=== PATIENT | female | born 1950 | race Caucasian/White ===

== ENCOUNTER 2016-07-16 18:32 | Inpatient (IN) | payer MEDICARE, OTHER ==
[~2016-07-16] VITALS: Ht 165.1 cm; Wt 63.6 kg
[2016-07-16 18:40] VITALS: Ht 165.1 cm; Wt 63.6 kg
[2016-07-16 19:19] LABS: ADD SCAN DIFF NO
[2016-07-16 19:24] LABS: BASOPHILS % 0.3 % (0.0-2.0); EOSINOPHILS # 0.1 10^3/ul (0.0-0.5); EOSINOPHILS % 1.8 % (0.0-7.0); HEMOGLOBIN 10.4 g/dl (12.0-16.0); LYMPHOCYTES # 1.9 10^3/ul (0.8-2.9); LYMPHOCYTES % 26.3 % (15.0-51.0); MEAN CORPUSCULAR HEMOGLOBIN 25.4 pg (29.0-33.0); MEAN CORPUSCULAR HGB CONC 31.5 g/dl (32.0-37.0); MEAN CORPUSCULAR VOLUME 80.5 fl (82.0-101.0); MEAN PLATELET VOLUME 9.6 fl (7.4-10.4); MONOCYTE # 0.7 10^3/ul (0.3-0.9); MONOCYTES % 9.2 % (0.0-11.0); NEUTROPHIL # 4.2 10^3/ul (1.6-7.5); NEUTROPHILS % 60.1 % (39.0-77.0); PLATELET COUNT 259 10^3/UL (140-415); RED CELL DISTRIBUTION WIDTH 16.3 % (11.5-14.5)
[2016-07-16] MEDS: NALOXONE (0.4 MG/ML) INJ IV PRN ×2 (19:27→21:44)
[2016-07-16 19:31] LABS: URINE BILIRUBIN (Dip) NEGATIVE (NEGATIVE); URINE BLOOD (Dip) NEGATIVE (NEGATIVE); URINE COLOR LT. YELLOW (YELLOW); URINE GLUCOSE (Dip) NEGATIVE (NEGATIVE); URINE KETONES (Dip) NEGATIVE (NEGATIVE); URINE LEUKOCYTE ESTERASE (Dip) NEGATIVE (NEGATIVE); URINE NITRITE (Dip) NEGATIVE (NEGATIVE); URINE UROBILINOGEN (Dip) 0.2 E.U./dL (0.1-1.0)
[2016-07-16 19:34] LABS: ALBUMIN 3.6 g/dl (3.3-4.9); CHLORIDE 105 mmol/L (97-110)
[2016-07-16 19:35] LABS: POTASSIUM 3.3 mmol/L (3.5-5.1); SODIUM 143 mmol/L (135-144)
[2016-07-16 19:37] LABS: ALKALINE PHOSPHATASE 75 IU/L (42-121); ANION GAP 15 (8-16); ASPARTATE AMINO TRANSFERASE 27 IU/L (15-46); BILIRUBIN,INDIRECT 0.3 mg/dl (0-1.1); BILIRUBIN,TOTAL 0.3 mg/dl (0.2-1.3); BLOOD UREA NITROGEN 11 mg/dl (7-20); CARBON DIOXIDE 26 mmol/L (21-31); CREATININE 1.03 mg/dl (0.44-1.00); TOTAL PROTEIN 6.6 g/dl (6.1-8.1)
[2016-07-16 19:38] LABS: ALANINE AMINOTRANSFERASE 27 IU/L (13-69); GLUCOSE 121 mg/dl (70-220)
[2016-07-16 19:44] LABS: ETHANOL < 10.0 mg/dl
[2016-07-16 19:52] LABS: BARBITURATES Negative (NEGATIVE)
[2016-07-16 19:57] LABS: CANNABINOIDS Negative (NEGATIVE)
[2016-07-16 19:59] LABS: BENZODIAZEPINES Positive (NEGATIVE); URINE RBCS 0-2 /HPF (0); URINE TOTAL PROTEIN (Dip) NEGATIVE (NEGATIVE)
[2016-07-16 20:00] LABS: COCAINE Positive (NEGATIVE); OPIATES Positive (NEGATIVE)
--- NOTE | 2016-07-16 20:07 | RADRPT ---
PROCEDURE: XR Chest. CLINICAL INDICATION: Chest pain, altered mental status TECHNIQUE: AP view of the chest was performed. COMPARISON: None FINDINGS: Mild cardiomegaly, remote CABG changes, and a left subclavian dual-chamber pacemaker are present. M ild vascular congestion is noted. No signs of pleural fluid or pneumothorax are seen. The osseous st ructures and soft tissues are unremarkable. IMPRESSION: Mild cardiomegaly, vascular congestion, remote CABG changes, and cardiac pacer. RPTAT: QQ .Heike Sotelo MD, MD Date Time Electronically viewed and signed by .Heike Sotelo MD, MD on 07/16/2016 20:07 .F/
[2016-07-16 20:58] LABS: ADD UMIC YES
[2016-07-16] MEDS ORDERED: SOD CHLORIDE 0.9% 1,000 ML IV SCH (23:07)
[2016-07-16] MEDS: SOD CHLORIDE 0.9% 1,000 ML IV SCH (23:07)
--- NOTE | 2016-07-16 23:09 | RADRPT ---
PROCEDURE: CT brain without contrast CLINICAL INDICATION: Altered level of consciousness TECHNIQUE: A CT of the brain was performed on a GE [address] scanner utilizing axial sections fr om the skull base through the vertex without contrast. The exam CDTIvol = 43.86 mGy and DLP = 720. 23 mGy-cm. COMPARISON: None available FINDINGS: No attenuation involving the inferior right frontal lobe white matter is most likely the sequela of prior traumatic contusion and associated encephalomalacia No acute intracranial hemorrhage is identi fied. There is no mass effect or midline shift. No extra-axial fluid collection is seen. The ventr icles and sulci are mildly enlarged, compatible with generalized volume loss. There are mild areas of decreased attenuation in the periventricular and deep white matter, suggestive of chronic small v essel ischemic changes. Breen-white differentiation is preserved. Atherosclerotic calcifications of the proximal intracranial arteries are noted. The osseous structures are unremarkable. The mastoid air cells and visualized paranasal sinuses are clear. RPTAT:HJJR IMPRESSION: 1. No evidence for acute intracranial abnormality. 2. Encephalomalacia in the inferior frontal lobe likely the sequela of prior post traumatic contusi on superimposed upon mild generalized volume loss with mild chronic small vessel ischemic changes. Physician Celeste Date Time Electronically viewed and signed by Physician Celeste on 07/16/2016 23:08 JR/
--- NOTE | 2016-07-16 23:10 | ERA ---
ER Documentation Chief Complaint Date/Time DATE: 07/16/16 TIME: 23:00 Chief Complaint BIBA RA 81, ALOC,woke up after one dose of Narcan per EMS report HPI 65-year-old female with a history of hypertension and diabetes brought in by ambulance for altered mental status [facility]. The patient was reportedly obtunded with agonal respirations. Narcan was given for pinpoint pupils and her mental status and respirations improved. Patient states she feels well and denies taking any drugs today. She denies any chest pain, shortness of breath, headache, focal weakness or numbness, recent fevers or chills ROS Review of systems limited secondary to altered mental status Allergies Allergies: Coded Allergies: No Known Allergy (Unverified , 07/16/16) PMhx/Soc History of Surgery: Yes Hx Cardiac Disorders: Yes (Hypertension, CAD) Hx Miscellaneous Medical Probl: Yes (Diabetes) Hx Alcohol Use: No Hx Substance Use: Yes Hx Tobacco Use: Yes Smoking Status: Unknown if ever smoked FmHx Family History: No diabetes Physical Exam Vitals Vital Signs Date Time Temp Pulse Resp B/P Pulse Ox O2 Delivery O2 Flow Rate FiO2 07/16/16 21:08 99.1 76 22 167/83 95 Room Air 07/16/16 19:50 Nasal Cannula 2 07/16/16 18:43 99.6 86 24 154/79 94 Room Air 07/16/16 18:40 98.5 90 18 135/68 87 Physical Exam Const: Somnolent but arousable, no apparent distress Head: Atraumatic Eyes: Normal Conjunctiva, PERRLA, EOMI ENT: Dry oral mucosa. Neck: Full range of motion. No meningismus. Resp: Clear to auscultation bilaterally Cardio: Regular rate and rhythm, no murmurs Abd: Soft, non tender, non distended. Normal bowel sounds Skin: No petechiae or rashes Back: No midline or flank tenderness Ext: No cyanosis, or edema Neur: Somnolent but arousable, oriented 3, moving all extremities, strength and sensations intact, no facial asymmetry Psych: Denies suicidal or homicidal ideations Result Diagram: 07/16/16191307/16/161913 Results 24 hrs Laboratory Tests Test 07/16/16 19:14 4/9/17 19:15 07/16/16 19:25 White Blood Count 7.010^3/ul Red Blood Count 4.1010^6/ul Hemoglobin 10.4g/dl Hematocrit 33.0% Mean Corpuscular Volume 80.5fl Mean Corpuscular Hemoglobin 25.4pg Mean Corpuscular Hemoglobin Concent 31.5g/dl Red Cell Distribution Width 16.3% Platelet Count 10753^3/UL Mean Platelet Volume 9.6fl Neutrophils % 60.1% Lymphocytes % 26.3% Monocytes % 9.2% Eosinophils % 1.8% Basophils % 0.3% Nucleated Red Blood Cells % 0.0/100WBC Neutrophils # 4.210^3/ul Lymphocytes # 1.910^3/ul Monocytes # 0.710^3/ul Eosinophils # 0.110^3/ul Basophils # 0.010^3/ul Nucleated Red Blood Cells # 0.010^3/ul Sodium Level 143mmol/L Potassium Level 3.3mmol/L Chloride Level 105mmol/L Carbon Dioxide Level 26mmol/L Anion Gap 15 Blood Urea Nitrogen 11mg/dl Creatinine 1.03mg/dl Glucose Level 121mg/dl Calcium Level 9.0mg/dl Total Bilirubin 0.3mg/dl Direct Bilirubin 0.00mg/dl Indirect Bilirubin 0.3mg/dl Aspartate Amino Transf (AST/SGOT) 27IU/L Alanine Aminotransferase (ALT/SGPT) 27IU/L Alkaline Phosphatase 75IU/L Total Protein 6.6g/dl Albumin 3.6g/dl Globulin 3.00g/dl Albumin/Globulin Ratio 1.20 Ethyl Alcohol Level < 10.0mg/dl Urine Color LT. YELLOW Urine Clarity CLEAR Urine pH 5.5 Urine Specific [place] 1.010 Urine Ketones NEGATIVE Urine Nitrite NEGATIVE Urine Bilirubin NEGATIVE Urine Urobilinogen 0.2 E.U./dL Urine Leukocyte Esterase NEGATIVE Urine Microscopic RBC 0-2/HPF Urine Microscopic WBC 0-2/HPF Urine Amorphous Urates MODERATE Urine Hemoglobin NEGATIVE Urine Glucose NEGATIVE% Urine Total Protein NEGATIVE Urine Opiates Screen Positive Urine Barbiturates Negative Urine Amphetamines Screen Negative Urine Benzodiazepines Screen Positive Urine Cocaine Screen Positive Urine Cannabinoids Negative Bedside Glucose 127mg/dL Current Medications Medications (Trade) Dose Ordered Sig/Gelacio Route PRN Reason Start Time Stop Time Status Last Admin Dose Admin Naloxone HCl (Narcan) 0.4 mg Q2M PRN IV LETHARGY 07/16/16 19:00 07/16/16 21:44 Procedures/MDM EMERGENT LABS AND DIAGNOSTIC STUDIES: Lab Results above were reviewed and interpreted by me. BMP showed mild hypokalemia slightly elevated creatinine UDS was positive for benzodiazepines, cocaine, and opiates 12-lead EKG was interpreted by Agus Whitney MD: Normal Sinus Rhythm with ventricular rate of 87 beats per minute Normal axis Normal intervals No acute ST or T wave changes suggestive of acute ischemia or STEMI. Radiology Results as interpreted by Radiology below were reviewed by Tamia Whitney MD: Chest x-ray: IMPRESSION: Mild cardiomegaly, vascular congestion, remote CABG changes, and cardiac pacer. .Heike Sotelo MD, MD Date Time Electronically viewed and signed by .Heike Sotelo MD, MD on 07/16/2016 20:07 Initial Nursing notes reviewed. Previous Medical Records requested via the Electronic Health Record. EMERGENCY DEPARTMENT COURSE / MEDICAL DECISION MAKING: Patient is presenting with altered mental status and somnolence likely secondary to drug overdose. Vitals were notable for some mild hypoxia which improved with stimulation. Urine drug screen showed evidence of polysubstance abuse. When I asked the patient about this, she finally admitted to using drugs for back pain. Patient required multiple doses of Narcan while in the ED for worsening mental status. Patient will be admitted to the ICU for close cardiopulmonary monitoring Critical Care Time: 40 minutes Treatments/Evaluations: Close monitoring and treatment of unstable vital signs, cardiorespiratory, and neurologic status, while maintaining tight balance of fluid, respiratory, and cardiac interventions. This time includes discussing the case with the patient and the patients family. This time does not include all procedures stated elsewhere in this record. This time also includes reviewing old records, labs and radiological studies. This time includes examining and re-examining the patient. Additionally, this time also includes arranging care with admitting and consulting physicians. Departure Diagnosis: Primary Impression: Altered level of consciousness Additional Impressions: Drug overdose Qualified Code: T50.901A - Drug overdose, accidental or unintentional, initial encounter Polysubstance abuse Condition: Critical FRANK WHITNEY MD Jul 16, 2016 23:10
[2016-07-16] MEDS ORDERED: NALOXONE (0.4 MG/ML) INJ IV PRN (23:30)
[2016-07-16] MEDS ORDERED: LORAZEPAM 2 MG INJ IV PRN (23:30)
[2016-07-16] MEDS: FAMOTIDINE 20 MG INJ IV SCH (23:30)
[2016-07-16] MEDS ORDERED: METOCLOPRAMIDE 10 MG INJ IV PRN (23:30)
[2016-07-16] MEDS ORDERED: NITROGLYCERIN (SL) 0.4 MG TAB SL PRN (23:30)
[2016-07-17] VITALS (37 sets, daily range): BP systolic 126–190; BP diastolic 65–96; PULSE 62–99; RESP 10–79; TEMP 97.6
[2016-07-17] MEDS: SOD CHLORIDE 0.9% 1,000 ML IV SCH (00:07)
--- NOTE | 2016-07-17 02:49 | HP ---
Date/Time of Note Date/Time of Note DATE: 07/17/16 TIME: 02:48 Assessment/Plan Assessment/Plan Assessment/Plan Altered level of consciousness Additional Impressions: Drug overdose Qualified Code: T50.901A - Drug overdose, accidental or unintentional, initial encounter Polysubstance abuse HPI/ROS Admit Date/Time Admit Date/Time Hx of Present Illness BIBA RA 81, ALOC,woke up after one dose of Narcan per EMS report HPI 65-year-old female with a history of hypertension and diabetes brought in by ambulance for altered mental status at her [facility]. The patient was reportedly obtunded with agonal respirations. Narcan was given for pinpoint pupils and her mental status and respirations improved. Patient states she feels well and denies taking any drugs today. She denies any chest pain, shortness of breath, headache, focal weakness or numbness, recent fevers or chills ROS Review of systems limited secondary to altered mental status Allergies Allergies: Coded Allergies: No Known Allergy (Unverified , 07/16/16) PMhx/Soc History of Surgery: Yes Hx Cardiac Disorders: Yes (Hypertension, CAD) Hx Miscellaneous Medical Probl: Yes (Diabetes) Hx Alcohol Use: No Hx Substance Use: Yes Hx Tobacco Use: Yes Smoking Status: Unknown if ever smoked FmHx Family History: No diabetes Physical Exam Vitals Vital Signs Date Time Temp Pulse Resp B/P Pulse Ox O2 Delivery O2 Flow Rate FiO2 07/16/16 21:08 99.1 76 22 167/83 95 Room Air 07/16/16 19:50 Nasal Cannula 2 07/16/16 18:43 99.6 86 24 154/79 94 Room Air 07/16/16 18:40 98.5 90 18 135/68 87 Physical Exam Const: Somnolent but arousable, no apparent distress Head: Atraumatic Eyes: Normal Conjunctiva, PERRLA, EOMI ENT: Dry oral mucosa. Neck: Full range of motion. No meningismus. Resp: Clear to auscultation bilaterally Cardio: Regular rate and rhythm, no murmurs Abd: Soft, non tender, non distended. Normal bowel sounds Skin: No petechiae or rashes Back: No midline or flank tenderness Ext: No cyanosis, or edema Neur: Somnolent but arousable, oriented 3, moving all extremities, strength and sensations intact, no facial asymmetry Psych: Denies suicidal or homicidal ideations Result Diagram: 07/16/16191307/16/161913 Results 24 hrs Laboratory Tests Test 07/16/16 19:14 07/16/16 19:15 07/16/16 19:25 White Blood Count 7.010^3/ul Red Blood Count 4.1010^6/ul Hemoglobin 10.4g/dl Hematocrit 33.0% Mean Corpuscular Volume 80.5fl Mean Corpuscular Hemoglobin 25.4pg Mean Corpuscular Hemoglobin Concent 31.5g/dl Red Cell Distribution Width 16.3% Platelet Count 07681^3/UL Mean Platelet Volume 9.6fl Neutrophils % 60.1% Lymphocytes % 26.3% Monocytes % 9.2% Eosinophils % 1.8% Basophils % 0.3% Nucleated Red Blood Cells % 0.0/100WBC Neutrophils # 4.210^3/ul Lymphocytes # 1.910^3/ul Monocytes # 0.710^3/ul Eosinophils # 0.110^3/ul Basophils # 0.010^3/ul Nucleated Red Blood Cells # 0.010^3/ul Sodium Level 143mmol/L Potassium Level 3.3mmol/L Chloride Level 105mmol/L Carbon Dioxide Level 26mmol/L Anion Gap 15 Blood Urea Nitrogen 11mg/dl Creatinine 1.03mg/dl Glucose Level 121mg/dl Calcium Level 9.0mg/dl Total Bilirubin 0.3mg/dl Direct Bilirubin 0.00mg/dl Indirect Bilirubin 0.3mg/dl Aspartate Amino Transf (AST/SGOT) 27IU/L Alanine Aminotransferase (ALT/SGPT) 27IU/L Alkaline Phosphatase 75IU/L Total Protein 6.6g/dl Albumin 3.6g/dl Globulin 3.00g/dl Albumin/Globulin Ratio 1.20 Ethyl Alcohol Level < 10.0mg/dl Urine Color LT. YELLOW Urine Clarity CLEAR Urine pH 5.5 Urine Specific [place] 1.010 Urine Ketones NEGATIVE Urine Nitrite NEGATIVE Urine Bilirubin NEGATIVE Urine Urobilinogen 0.2 E.U./dL Urine Leukocyte Esterase NEGATIVE Urine Microscopic RBC 0-2/HPF Urine Microscopic WBC 0-2/HPF Urine Amorphous Urates MODERATE Urine Hemoglobin NEGATIVE Urine Glucose NEGATIVE% Urine Total Protein NEGATIVE Urine Opiates Screen Positive Urine Barbiturates Negative Urine Amphetamines Screen Negative Urine Benzodiazepines Screen Positive Urine Cocaine Screen Positive Urine Cannabinoids Negative Bedside Glucose 127mg/dL Current Medications Medications (Trade) Dose Ordered Sig/Gelacio Route PRN Reason Start Time Stop Time Status Last Admin Dose Admin Naloxone HCl (Narcan) 0.4 mg Q2M PRN IV LETHARGY 07/16/16 19:00 07/16/16 21:44 Procedures/MDM EMERGENT LABS AND DIAGNOSTIC STUDIES: Lab Results above were reviewed and interpreted by me. BMP showed mild hypokalemia slightly elevated creatinine UDS was positive for benzodiazepines, cocaine, and opiates 12-lead EKG was interpreted by Agus Whitney MD: Normal Sinus Rhythm with ventricular rate of 87 beats per minute Normal axis Normal intervals No acute ST or T wave changes suggestive of acute ischemia or STEMI. Radiology Results as interpreted by Radiology below were reviewed by Tamia Whitney MD: Chest x-ray: IMPRESSION: Mild cardiomegaly, vascular congestion, remote CABG changes, and cardiac pacer. .Heike Sotelo MD, MD Date Time Electronically viewed and signed by .Heike Sotelo MD, MD on 07/16/2016 20:07 Initial Nursing notes reviewed. Previous Medical Records requested via the Electronic Health Record. EMERGENCY DEPARTMENT COURSE / MEDICAL DECISION MAKING: Patient is presenting with altered mental status and somnolence likely secondary to drug overdose. Vitals were notable for some mild hypoxia which improved with stimulation. Urine drug screen showed evidence of polysubstance abuse. When I asked the patient about this, she finally admitted to using drugs for back pain. Patient required multiple doses of Narcan while in the ED for worsening mental status. Patient will be admitted to the ICU for close cardiopulmonary monitoring Critical Care Time: 40 minutes Treatments/Evaluations: Close monitoring and treatment of unstable vital signs, cardiorespiratory, and neurologic status, while maintaining tight balance of fluid, respiratory, and cardiac interventions. This time includes discussing the case with the patient and the patients family. This time does not include all procedures stated elsewhere in this record. This time also includes reviewing old records, labs and radiological studies. This time includes examining and re-examining the patient. Additionally, this time also includes arranging care with admitting and consulting physicians. Departure Diagnosis: Primary Impression: Condition: Critical PMH/Family/Social Social History Smoking Status: Unknown if ever smoked Exam/Review of Systems Vital Signs Vitals Vital Signs Date Time Temp Pulse Resp B/P Pulse Ox O2 Delivery O2 Flow Rate FiO2 07/17/16 02:00 97.6 78 16 148/72 100 Nasal Cannula 2.0 Labs Result Diagram: 07/16/16191307/16/161913 Medications Medications Current Medications Naloxone HCl 0.4 mg 0.4 mg Q2M PRN IV LETHARGY Last administered on 07/16/16t 21 :44; Admin Dose 0.4 MG; Start 07/16/16 at 19:00 Sodium Chloride (NS) 1,000 ml @ 100 mls/hr Q10H IV ; Start 07/16/16 at 23:07 Naloxone HCl (Narcan) 0.4 mg Q3M PRN IV DECREASED REPIRATORY RATE; Start at 23:30 Metoclopramide HCl (Reglan) 10 mg Q6H PRN IV NAUSEA AND/OR VOMITING; Start 07/16 at 23:30 Nitroglycerin (Nitroglycerin (Sl Tab) 0.4 Mg) 1 tab Q5M PRN SL CHEST PAIN; Start 07/16/16 at 23:30 Lorazepam (Ativan) 1 mg Q2H PRN IV ANXIETY; Start 07/16/16 at 23:30 Famotidine (Pepcid Iv) 20 mg Q12 IV ; Start 07/16/16 at 23:30 Enoxaparin Sodium (Lovenox) 40 mg DAILY SC ; Start 07/17/16 at 09:00 Procedures Procedures PROCEDURE: CT brain without contrast CLINICAL INDICATION: Altered level of consciousness COMPARISON: None available IMPRESSION: 1. No evidence for acute intracranial abnormality. 2. Encephalomalacia in the inferior frontal lobe likely the sequela of prior post traumatic contusion superimposed upon mild generalized volume loss with mild chronic small vessel ischemic changes. PROCEDURE: XR Chest. CLINICAL INDICATION: Chest pain, altered mental status TECHNIQUE: AP view of the chest was performed. COMPARISON: None IMPRESSION: Mild cardiomegaly, vascular congestion, remote CABG changes, and cardiac pacer. SARA VILLAFANA DO Jul 17, 2016 02:49 2. Encephalomalacia in the inferior frontal lobe likely the sequela of prior post traumatic contusion superimposed upon mild generalized volume loss with mild chronic small vessel ischemic changes. SARA VILLAFANA DO Jul 17, 2016 02:49
[2016-07-17] MEDS ORDERED: MAGNESIUM SULFATE 2 GM/50 ML 50 ML IVPB ONE (03:30)
[2016-07-17] MEDS: NALOXONE (0.4 MG/ML) INJ IM PRN ×2 (04:07→05:30)
[2016-07-17] MEDS ORDERED: MAGNESIUM SULFATE (GM) 50% 2 ML INJ IM SCH ×2 (06:30→07:00)
[2016-07-17] MEDS: ENOXAPARIN 40 MG/0.4 ML SYG SC SCH (09:50)
[2016-07-17] MEDS: FAMOTIDINE 20 MG INJ IV SCH (09:51)
[2016-07-17] MEDS ORDERED: POTASSIUM CHLORIDE (SR) 20 MEQ TAB PO STA (10:49)
[2016-07-17] MEDS: POTASSIUM CHLORIDE 50 ML IVPB SCH ×2 (10:49→10:55)
[2016-07-17] MEDS ORDERED: MAGNESIUM OXIDE 400 MG TAB PO ONE (11:00)
[2016-07-17] MEDS: hydrALAzine 20 MG INJ IV PRN ×2 (11:03→17:00)
[2016-07-17] MEDS ORDERED: RANI-428 PO (11:38)
[2016-07-17] MEDS ORDERED: LABE200T25 PO (11:38)
[2016-07-17] MEDS ORDERED: CHOL400T10 PO (11:38)
[2016-07-17] MEDS ORDERED: ASPI-664 PO (11:38)
[2016-07-17] MEDS ORDERED: OMEP20CA16 PO (11:38)
[2016-07-17] MEDS ORDERED: LORA1TAB PO (11:38)
[2016-07-17] MEDS ORDERED: MELO7.5O PO (11:38)
[2016-07-17] MEDS ORDERED: OXYB5TAB PO (11:38)
[2016-07-17] MEDS ORDERED: LAMO100T PO (11:38)
[2016-07-17] MEDS ORDERED: METF500T PO (11:38)
[2016-07-17] MEDS ORDERED: ZOLP10TA5 PO (11:38)
[2016-07-17] MEDS ORDERED: BACL10TA PO (11:38)
[2016-07-17] MEDS ORDERED: DOCU240C55 PO (11:38)
[2016-07-17] MEDS ORDERED: ATOR10TA65 PO (11:38)
[2016-07-17] MEDS ORDERED: PYRI60TA9 PO (11:38)
[2016-07-17] MEDS ORDERED: GABA300S PO (11:38)
[2016-07-17] MEDS ORDERED: VALS160T26 PO (11:38)
[2016-07-17] MEDS ORDERED: CLON-379 PO (11:38)
[2016-07-17] MEDS ORDERED: DULO60CA59 PO (11:38)
[2016-07-17] MEDS ORDERED: DIAZ10TA4 PO (11:38)
[2016-07-17] MEDS ORDERED: TRAM50TA2 PO (11:38)
[2016-07-17] MEDS ORDERED: LINA290C PO (11:38)
[2016-07-17] MEDS: VALSARTAN 160 MG TAB PO SCH ×2 (12:51→22:04)
[2016-07-17] MEDS: LABETALOL 200 MG TAB PO SCH (12:51)
--- NOTE | 2016-07-17 14:04 | PDOCDIS ---
Discharge Instructions CONDITION Patient Condition: Good HOME CARE INSTRUCTIONS: Diet Instructions: Regular ACTIVITY: Activity Restrictions: No Restrictions FOLLOW UP/APPOINTMENTS Appointments F/U WITH YOUR PCP IN 1-2 WEEKS ROSANNA BIRMINGHAM Jul 17, 2016 14:04
[2016-07-17] MEDS ORDERED: GLUCOSE GEL 15 GRAM TUBE PO PRN ×2 (14:30)
[2016-07-17] MEDS ORDERED: GLUCAGON 1 MG INJ IM PRN (14:30)
[2016-07-17] MEDS ORDERED: GLUCOSE GEL 15 GRAM TUBE BUCCAL PRN (14:30)
[2016-07-17] MEDS ORDERED: DEXTROSE 50% 50 ML SYRINGE IV PRN ×2 (14:30)
[2016-07-17] MEDS: INSULIN ASPART [NOVOLOG] 3 ML PEN SC SCH ×2 (16:59→21:00)
[2016-07-17] MEDS: DOCUSATE SODIUM 250 MG CAP PO SCH (16:59)
[2016-07-17] MEDS: ACETAMINOPHEN 325 MG TAB PO PRN (16:59)
[2016-07-17] MEDS ORDERED: MAGNESIUM HYDROXIDE 30ML CUP PO PRN (17:30)
[2016-07-17] MEDS: SENNA TAB PO SCH (22:04)
[2016-07-17] MEDS: OXYBUTYNIN (XL) 5 MG TAB PO SCH (22:04)
[2016-07-17] MEDS: ATORVASTATIN 20 MG TAB PO SCH (22:04)
[2016-07-17] MEDS: PYRIDOSTIGMINE 60 MG TAB PO SCH (22:04)
[2016-07-17] MEDS: RANITIDINE 150 MG TAB PO SCH (22:04)
[2016-07-17] MEDS: INSULIN DETEMIR [LEVEMIR] 3ML CART SC SCH (22:25)
[2016-07-18] VITALS (16 sets, daily range): BP systolic 129–201; BP diastolic 54–91; PULSE 60–70; RESP 18–20
[2016-07-18] MEDS: ACCU-CHEK XX SCH (02:00)
[2016-07-18] MEDS: ACETAMINOPHEN 325 MG TAB PO PRN ×2 (03:25→10:42)
[2016-07-18] MEDS: hydrALAzine 20 MG INJ IV PRN (07:40)
[2016-07-18 07:52] LABS: ADD SCAN DIFF NO
[2016-07-18 07:53] LABS: HEMATOCRIT 32.6 % (37.0-47.0); HEMOGLOBIN 10.2 g/dl (12.0-16.0); MEAN CORPUSCULAR HEMOGLOBIN 25.6 pg (29.0-33.0); MEAN CORPUSCULAR HGB CONC 31.3 g/dl (32.0-37.0); MEAN CORPUSCULAR VOLUME 81.7 fl (82.0-101.0); MEAN PLATELET VOLUME 10.8 fl (7.4-10.4); RED BLOOD COUNT 3.99 10^6/ul (4.20-5.40); RED CELL DISTRIBUTION WIDTH 16.4 % (11.5-14.5)
[2016-07-18] MEDS: INSULIN ASPART [NOVOLOG] 3 ML PEN SC SCH ×4 (07:55→21:00)
[2016-07-18 08:01] LABS: PLATELET COUNT 157 10^3/UL (140-415)
[2016-07-18 08:17] LABS: CALCIUM 8.7 mg/dl (8.4-10.2); CREATININE 0.6 mg/dl (0.44-1.00); PHOSPHORUS 2.9 mg/dl (2.5-4.9)
[2016-07-18] MEDS: DOCUSATE SODIUM 250 MG CAP PO SCH (08:45)
[2016-07-18] MEDS: DULOXETINE 30 MG CAP DR PO SCH (08:46)
[2016-07-18] MEDS: VALSARTAN 160 MG TAB PO SCH ×2 (08:46→20:52)
[2016-07-18] MEDS: ASPIRIN (EC) 81 MG TAB PO SCH (08:47)
[2016-07-18] MEDS: PYRIDOSTIGMINE 60 MG TAB PO SCH ×2 (08:47→20:52)
[2016-07-18] MEDS: LAMOTRIGINE 100 MG TAB PO SCH (08:47)
[2016-07-18] MEDS: OXYBUTYNIN (XL) 5 MG TAB PO SCH ×2 (08:47→20:52)
[2016-07-18] MEDS: LABETALOL 200 MG TAB PO SCH (08:48)
[2016-07-18] MEDS: ENOXAPARIN 40 MG/0.4 ML SYG SC SCH (08:49)
[2016-07-18] MEDS: RANITIDINE 150 MG TAB PO SCH (08:49)
[2016-07-18] MEDS: SENNA TAB PO SCH ×2 (08:49→20:53)
[2016-07-18] MEDS: CHOLECALCIFEROL 2,000 UNIT CAP PO SCH (08:50)
[2016-07-18 10:32] LABS: LYMPHOCYTES # 2.1 10^3/ul (0.8-2.9); MONOCYTE # 0.5 10^3/ul (0.3-0.9); NEUTROPHIL # 3.1 10^3/ul (1.6-7.5)
[2016-07-18] MEDS: AMLODIPINE 5 MG TAB PO SCH (10:45)
[2016-07-18] MEDS ORDERED: AL HYDROX/MG HYDROX/SIMETH 30 ML CUP PO PRN (14:00)
[2016-07-18] MEDS: morphine 2 MG INJ IV PRN ×2 (14:34→20:49)
--- NOTE | 2016-07-18 16:59 | PN ---
Date/Time of Note Date/Time of Note DATE: 07/18/16 TIME: 16:55 Assessment/Plan VTE Prophylaxis VTE Prophylaxis Intervention: LMWH Lines/Catheters IV Catheter Type (from Nrs): Saline Lock Assessment/Plan Chief Complaint/Hosp Course 1. Acute encephalopathy secondary to drug overdose from cocaine-resolved 2. Abdominal pain possibly secondary to gas versus gastritis Morphine as needed as well as Mylanta and Protonix Ultrasound abdomen to rule out liver and gallbladder pathology 3. Hypertension: Improved Started on Norvasc, continue Diovan 4. Chronic pain Continue home meds Prophylaxis: Lovenox Problems: Subjective 24 Hr Interval Summary Gastrointestinal: pain Exam/Review of Systems Vital Signs Vitals Vital Signs Date Time Temp Pulse Resp B/P Pulse Ox O2 Delivery O2 Flow Rate FiO2 07/18/16 16:16 60 07/18/16 16:04 98.6 18 158/54 95 07/18/16 07:58 Nasal Cannula 2.0 Intake and Output 07/17/16 07/17/16 07/18/16 14:59 22:59 06:59 Intake Total 480 ml 340 ml Output Total 395 ml 205 ml Balance 85 ml 135 ml Exam Constitutional: alert Respiratory: clear to auscultation Cardiovascular: regular rate and rhythm Gastrointestinal: soft, No distended Musculoskeletal: nl extremities to inspection Results Result Diagram: 07/18/16 0650 07/18/16 0650 Results 24 hrs Laboratory Tests Test 07/17/16 16:56 07/17/16 17:45 07/17/16 21:52 07/18/16 06:50 Bedside Glucose 109 120 Magnesium Level 1.7 2.0 White Blood Count 6.0 Red Blood Count 3.99 L Hemoglobin 10.2 L Hematocrit 32.6 L Mean Corpuscular Volume 81.7 L Mean Corpuscular Hemoglobin 25.6 L Mean Corpuscular Hemoglobin Concent 31.3 L Red Cell Distribution Width 16.4 H Platelet Count 157 # Mean Platelet Volume 10.8 H Neutrophils % 52.0 Band Neutrophils % 5.0 Lymphocytes % 35.0 Monocytes % 8.0 Neutrophils # 3.1 Lymphocytes # 2.1 Monocytes # 0.5 Sodium Level 139 Potassium Level 4.0 Chloride Level 109 Carbon Dioxide Level 28 Anion Gap 6 #L Blood Urea Nitrogen 11 Creatinine 0.60 Glucose Level 86 Calcium Level 8.7 Phosphorus Level 2.9 Test 07/18/16 07:32 07/18/16 11:58 Bedside Glucose 84 122 Medications Medications Current Medications Metoclopramide HCl (Reglan) 10 mg Q6H PRN IV NAUSEA AND/OR VOMITING; Start 07/16 at 23:30 Nitroglycerin (Nitroglycerin (Sl Tab) 0.4 Mg) 1 tab Q5M PRN SL CHEST PAIN Last administered on 07/17/16 17:07; Admin Dose 1 TAB; Start 07/16/16 at 23:30 Lorazepam (Ativan) 1 mg Q2H PRN IV ANXIETY; Start 07/16/16 at 23:30 Enoxaparin Sodium (Lovenox) 40 mg DAILY SC Last administered on 07/18/16 08:49 ; Admin Dose 40 MG; Start 07/17/16 at 09:00 Hydralazine HCl (Apresoline) 10 mg Q4H PRN IV SBP >160 Last administered on 07:40; Admin Dose 10 MG; Start 07/17/16 at 03:30 Naloxone HCl (Narcan) 0.4 mg Q3M PRN IM DECREASED RESPIRATORY RATE Last administered on 07/17/16 05:30; Admin Dose 0.4 MG; Start 07/17/16 at 04:00 Labetalol HCl (Normodyne) 200 mg DAILY PO Last administered on 07/18/16 08:48 ; Admin Dose 200 MG; Start 07/17/16 at 12:30 Valsartan (Diovan) 160 mg BID PO Last administered on 07/18/16 08:46; Admin Dose 160 MG; Start 07/17/16 at 12:30 Insulin Detemir (Levemir) 10 unit DAILY@20 SC Last administered on 07/17/16 22 :25; Admin Dose 10 UNIT; Start 07/17/16 at 20:00 Diagnostic Test (Pha) (Accu-Chek) 1 ea 02 XX ; Start 07/18/16 at 02:00 Aspirin (Halfprin) 81 mg DAILY PO Last administered on 07/18/16 08:47; Admin Dose 81 MG; Start 07/18/16 at 09:00 Atorvastatin Calcium (Lipitor) 20 mg QHS PO Last administered on 07/17/16 22: 04; Admin Dose 20 MG; Start 07/17/16 at 21:00 Cholecalciferol (Vitamin D) 2,000 unit DAILY PO Last administered on 07/18/16 08:50; Admin Dose 2,000 UNIT; Start 07/18/16 at 09:00 Docusate Sodium (Colace) 250 mg DAILY PO Last administered on 07/18/16 08:45; Admin Dose 250 MG; Start 07/17/16 at 14:30 Duloxetine HCl (Cymbalta) 60 mg DAILY PO Last administered on 07/18/16 08:46; Admin Dose 60 MG; Start 07/18/16 at 09:00 Lamotrigine (Lamictal) 100 mg DAILY PO Last administered on 07/18/16 08:47; Admin Dose 100 MG; Start 07/18/16 at 09:00 Oxybutynin Chloride (Ditropan Xl) 5 mg BID PO Last administered on 07/18/16 08 :47; Admin Dose 5 MG; Start 07/17/16 at 21:00 Pyridostigmine [place] (Mestinon) 60 mg BID PO Last administered on 07/18/16 08:47; Admin Dose 60 MG; Start 07/17/16 at 21:00 Ranitidine HCl (Zantac) 150 mg BID PO Last administered on 07/18/16 08:49; Admin Dose 150 MG; Start 07/17/16 at 21:00 Miscellaneous Information 1 ea NOTE XX ; Start 07/17/16 at 14:30 Glucose (Glutose) 15 gm Q15M PRN PO DECREASED GLUCOSE; Start 07/17/16 at 14:30 Glucose (Glutose) 22.5 gm Q15M PRN PO DECREASED GLUCOSE; Start 07/17/16 at 14: 30 Dextrose (D50w Syringe) 25 ml Q15M PRN IV DECREASED GLUCOSE; Start 07/17/16 at 14:30 Dextrose (D50w Syringe) 50 ml Q15M PRN IV DECREASED GLUCOSE; Start 07/17/16 at 14:30 Glucagon (Glucagen) 1 mg Q15M PRN IM DECREASED GLUCOSE; Start 07/17/16 at 14:30 Glucose (Glutose) 15 gm Q15M PRN BUCCAL DECREASED GLUCOSE; Start 07/17/16 at 14 :30 Acetaminophen (Tylenol Tab) 650 mg Q6H PRN PO PAIN AND OR ELEVATED TEMP Last administered on 07/18/16 10:42; Admin Dose 650 MG; Start 07/17/16 at 16:00 Senna (Senokot) 2 tab BID PO Last administered on 07/18/16 08:49; Admin Dose 2 TAB; Start 07/17/16 at 21:00 Magnesium Hydroxide (Milk Of Mag) 30 ml DAILY PRN PO CONSTIPATION Last administered on 07/17/16 18:34; Admin Dose 30 ML; Start 07/17/16 at 17:30 Amlodipine Besylate (Norvasc) 5 mg DAILY PO Last administered on 07/18/16 10: 45; Admin Dose 5 MG; Start 07/18/16 at 10:00 Al Hydrox/Mg Hydrox/Simethicone (Mag-Al Plus) 30 ml Q6H PRN PO GASTROINTESTINAL UPSET; Start 07/18/16 at 14:00 Morphine Sulfate (morphine) 2 mg Q3H PRN IV PAIN Last administered on 14:34; Admin Dose 2 MG; Start 07/18/16 at 14:00 Pantoprazole (Protonix Iv) 40 mg BID@,18 IV ; Start 07/18/16 at 18:00 ROSANNA BIRMINGHAM Jul 18, 2016 16:59
--- NOTE | 2016-07-18 17:19 | RADRPT ---
PROCEDURE: US Abdomen (right upper quadrant). CLINICAL INDICATION: Right upper quadrant abdomen pain. TECHNIQUE: Multiple real-time longitudinal and transverse images of the right upper quadrant of th e abdomen were acquired utilizing a curved array transducer. Images were reviewed on a high-resoluti on PACS workstation. COMPARISON: None FINDINGS: The liver is normal in size and echogenicity. There is no focal hepatic lesion. The gallbladder is normal with no stones or wall thickening. There is no pericholecystic fluid jonathan ection. The bile ducts are normal with the common bile duct measuring 3.0 mm in diameter. The visualized portions of the pancreas are unremarkable with obscuration of the tail of the pancrea s. No free fluid is present. The right kidney measures 10.2 x 3.4 x 5.4 cm. There is normal echogenicity of the right kidney. There is no perinephric fluid collection. No hydronephrosis, mass, or calculus is seen. IMPRESSION: 1. Unremarkable right upper quadrant abdomen ultrasound. RPTAT: QQ .José Manuel Whittington MD, Date Time Electronically viewed and signed by .José Manuel Whittington MD, on 07/18/2016 17:19 .R/
[2016-07-18] MEDS: PANTOPRAZOLE 40 MG INJ IV SCH (18:07)
[2016-07-18] MEDS: ATORVASTATIN 20 MG TAB PO SCH (20:52)
[2016-07-18] MEDS: MUPIROCIN 2% 22 GM OINT TOP SCH (20:53)
[2016-07-18] MEDS: INSULIN DETEMIR [LEVEMIR] 3ML CART SC SCH (21:37)
[2016-07-19] VITALS (9 sets, daily range): BP systolic 126–192; BP diastolic 70–80; PULSE 60–88; RESP 18–20
[2016-07-19] MEDS: ACCU-CHEK XX SCH (02:00)
[2016-07-19] MEDS: morphine 2 MG INJ IV PRN ×3 (03:04→09:20)
[2016-07-19] MEDS: hydrALAzine 20 MG INJ IV PRN (03:31)
[2016-07-19] MEDS: PANTOPRAZOLE 40 MG INJ IV SCH (06:24)
[2016-07-19] MEDS: INSULIN ASPART [NOVOLOG] 3 ML PEN SC SCH ×3 (07:55→17:36)
[2016-07-19] MEDS: DULOXETINE 30 MG CAP DR PO SCH (09:12)
[2016-07-19] MEDS: AMLODIPINE 5 MG TAB PO SCH (09:13)
[2016-07-19] MEDS: DOCUSATE SODIUM 250 MG CAP PO SCH (09:13)
[2016-07-19] MEDS: OXYBUTYNIN (XL) 5 MG TAB PO SCH (09:13)
[2016-07-19] MEDS: LAMOTRIGINE 100 MG TAB PO SCH (09:13)
[2016-07-19] MEDS: PYRIDOSTIGMINE 60 MG TAB PO SCH (09:13)
[2016-07-19] MEDS: LABETALOL 200 MG TAB PO SCH (09:14)
[2016-07-19] MEDS: SENNA TAB PO SCH (09:14)
[2016-07-19] MEDS: CHOLECALCIFEROL 2,000 UNIT CAP PO SCH (09:15)
[2016-07-19] MEDS: ASPIRIN (EC) 81 MG TAB PO SCH (09:15)
[2016-07-19] MEDS: ENOXAPARIN 40 MG/0.4 ML SYG SC SCH (09:16)
[2016-07-19] MEDS: MUPIROCIN 2% 22 GM OINT TOP SCH (09:17)
[2016-07-19] MEDS: VALSARTAN 160 MG TAB PO SCH (09:17)
[2016-07-19 10:10] LABS: ADD SCAN DIFF NO
[2016-07-19 10:15] LABS: BASOPHILS % 0.2 % (0.0-2.0); EOSINOPHILS # 0.1 10^3/ul (0.0-0.5); EOSINOPHILS % 1.6 % (0.0-7.0); HEMOGLOBIN 10.6 g/dl (12.0-16.0); LYMPHOCYTES # 1.7 10^3/ul (0.8-2.9); LYMPHOCYTES % 20.6 % (15.0-51.0); MEAN CORPUSCULAR HEMOGLOBIN 25.9 pg (29.0-33.0); MEAN CORPUSCULAR HGB CONC 32.1 g/dl (32.0-37.0); MEAN CORPUSCULAR VOLUME 80.5 fl (82.0-101.0); MEAN PLATELET VOLUME 9.6 fl (7.4-10.4); MONOCYTE # 0.6 10^3/ul (0.3-0.9); MONOCYTES % 7.1 % (0.0-11.0); NEUTROPHIL # 5.8 10^3/ul (1.6-7.5); NEUTROPHILS % 69.7 % (39.0-77.0); PLATELET COUNT 265 10^3/UL (140-415); RED CELL DISTRIBUTION WIDTH 16.8 % (11.5-14.5); WHITE BLOOD COUNT 8.3 10^3/ul (4.8-10.8)
[2016-07-19 10:24] LABS: POTASSIUM 3.8 mmol/L (3.5-5.1)
[2016-07-19 10:25] LABS: IRON 41 ug/dl (35-150)
[2016-07-19 10:26] LABS: CREATININE 0.58 mg/dl (0.44-1.00)
[2016-07-19 10:38] LABS: TOTAL IRON BINDING CAPACITY 334 ug/dl (241-421)
[2016-07-19] MEDS ORDERED: AMLO-147 PO (11:44)
--- NOTE | 2016-07-19 14:38 | DS ---
DATE OF ADMISSION: 07/16/2016 DATE OF DISCHARGE: 07/19/2016 DISCHARGE DIAGNOSES: 1. Acute encephalopathy secondary to drug overdose from cocaine as well as muscle relaxers as well as benzos, now resolved. 2. Abdominal pain secondary to gastric gastritis, continue proton pump inhibitor now improved. Ult rasound of the abdomen shows no significant findings. 3. Hypertension. The patient's clonidine discontinued. The patient was started on Norvasc. We wi ll prescribe Norvasc on discharge. We will continue Diovan. 4. Chronic pain. Continue home medications. HOSPITAL COURSE: The patient is a 65-year-old female with a history of chronic pain syndrome, possi ble depression, anxiety. She also has a history of hypertension. The patient presents with altered mental status from board and care. The patient had agonal respiration. Narcan was given for pinpoi nt pupils, her mental status did improve. The patient denies taking any drugs on arrival but her U- tox did show cocaine as well as opiates. Alcohol level was normal. Patient's mentation did improve . She did have abdominal pain which she has had for many weeks now. Abdominal ultrasound was unrem arkable. Pain is felt to be secondary to either gastric gastritis and did improve with Mylanta and Protonix IV. The patient was felt to be stable for discharge. Of note, her BP was high and she was taking clonidine at home. It was felt that her regimen was not optimized. She was started on Norvas c and her BP did improve. On the day of discharge the patient was felt to be stable for discharge. Her vitals, labs, physical exam were stable. She had no acute complaints, her questions answered. CONDITION ON DISCHARGE: Stable. DISPOSITION: To home. MEDICATIONS: The patient was given a new prescription for: 1. Norvasc 5 mg daily. 2. She was to stop taking her Baclofen and clonidine. 3. She is to continue her other home medications. FOLLOWUP: The patient is to follow up with her PCP in 1 to 2 weeks. Greater than 30 minutes was spent coordinating discharge of the patient. Dictated By: ROSANNA BIRMINGHAM MD BS/NTS Conf#: [id number] DID#: [id number]
[2016-07-19] MEDS: ACETAMINOPHEN 325 MG TAB PO PRN (17:35)
== END 2016-07-19 17:40 | disposition home or self-care (01) | DRG 917 ==
LOC: E/R 18:32 → ICU 23:30 → TEL 07-17 20:39
PROVIDERS: ADMIT Family Medicine; ATTEND Family Medicine
DX: T40.5X1A Poisoning by cocaine, accidental (unintentional), initial encounter (principal); G92 Toxic encephalopathy; T42.4X1A Poisoning by benzodiazepines, accidental (unintentional), initial encounter; T48.201A Poisoning by unspecified drugs acting on muscles, accidental (unintentional), initial encounter; I10 Essential (primary) hypertension; E11.9 Type 2 diabetes mellitus without complications; I25.10 Atherosclerotic heart disease of native coronary artery without angina pectoris; K29.70 Gastritis, unspecified, without bleeding; G89.4 Chronic pain syndrome
CPT/HCPCS: 36415; 70450; 71010; 76705; 80048; 80053; 80306; 80307; 81001; 81003; 82962; 83540; 83735; 84100; 84484; 85025; 87081; 92610; 93005; 96374; 96376; C9113; J0360; J1650; J1815; J2270; J2310; J3475; J7030

== ENCOUNTER 2016-08-15 18:42 | Observation (INO) | payer MEDICARE, OTHER ==
[~2016-08-15] VITALS: Ht 167.6 cm; Wt 74.2 kg
[~2016-08-15 18:42] MED LIST: AMLO-147 PO; ASPI-664 PO; ATOR10TA65 PO; CHOL400T10 PO; DIAZ10TA4 PO; DOCU240C55 PO; DULO60CA59 PO; GABA300S PO; LABE200T25 PO; LAMO100T PO; LINA290C PO; LORA1TAB PO; MELO7.5O PO; METF500T PO; OMEP20CA16 PO; OXYB5TAB PO; PYRI60TA9 PO; RANI-428 PO; TRAM50TA2 PO; VALS160T26 PO; ZOLP10TA5 PO
[2016-08-15] MEDS ORDERED: morphine 2 MG INJ IV STA (18:58)
[2016-08-15] MEDS ORDERED: ONDANSETRON 4 MG INJ IV STA ×2 (18:58→21:20)
[2016-08-15] MEDS ORDERED: ASPIRIN 325 MG TAB PO STA (18:58)
[2016-08-15] MEDS ORDERED: NITROGLYCERIN (SL) 0.4 MG TAB SL PRN (19:00)
[2016-08-15 19:24] LABS: ADD UMIC YES; URINE BILIRUBIN (Dip) NEGATIVE (NEGATIVE); URINE BLOOD (Dip) NEGATIVE (NEGATIVE); URINE COLOR LT. YELLOW (YELLOW); URINE GLUCOSE (Dip) NEGATIVE (NEGATIVE); URINE KETONES (Dip) NEGATIVE (NEGATIVE); URINE LEUKOCYTE ESTERASE (Dip) TRACE (NEGATIVE); URINE NITRITE (Dip) NEGATIVE (NEGATIVE); URINE TOTAL PROTEIN (Dip) NEGATIVE (NEGATIVE); URINE UROBILINOGEN (Dip) 0.2 E.U./dL (0.1-1.0)
[2016-08-15 19:31] LABS: SQUAMOUS EPITHELIAL CELL,UR FEW; URINE RBCS 0-2 /HPF (0)
[2016-08-15 19:57] LABS: ADD SCAN DIFF NO
[2016-08-15 19:58] LABS: BASOPHILS % 0.4 % (0.0-2.0); EOSINOPHILS # 0.3 10^3/ul (0.0-0.5); EOSINOPHILS % 5.6 % (0.0-7.0); HEMATOCRIT 34.3 % (37.0-47.0); HEMOGLOBIN 10.7 g/dl (12.0-16.0); LYMPHOCYTES # 1.8 10^3/ul (0.8-2.9); MEAN CORPUSCULAR HEMOGLOBIN 24.8 pg (29.0-33.0); MEAN CORPUSCULAR HGB CONC 31.2 g/dl (32.0-37.0); MEAN CORPUSCULAR VOLUME 79.6 fl (82.0-101.0); MEAN PLATELET VOLUME 11.1 fl (7.4-10.4); MONOCYTE # 0.4 10^3/ul (0.3-0.9); MONOCYTES % 8.4 % (0.0-11.0); NEUTROPHIL # 2.1 10^3/ul (1.6-7.5); NEUTROPHILS % 46.4 % (39.0-77.0); PLATELET COUNT 209 10^3/UL (140-415); RED BLOOD COUNT 4.31 10^6/ul (4.20-5.40); RED CELL DISTRIBUTION WIDTH 15.9 % (11.5-14.5); WHITE BLOOD COUNT 4.6 10^3/ul (4.8-10.8)
[2016-08-15 20:14] LABS: INR 0.98
--- NOTE | 2016-08-15 20:29 | RADRPT ---
PROCEDURE: CT brain without contrast CLINICAL INDICATION: Headaches with hypertension TECHNIQUE: A CT of the brain was performed utilizing axial sections from the skull base through th e vertex without contrast. Sagittal and coronal images were also reformatted. The exam CTDIvol = 44. 11 mGy and DLP = 720.23 mGy-cm. COMPARISON: 07/16/2016 FINDINGS: No acute intracranial hemorrhage is identified. There is no mass effect or midline shift. No extra -axial fluid collection is seen. Prominence of the ventricular system and sulci consistent with gen eralized atrophy advanced for age is again noted. Low attenuation consistent with encephalomalacia in the inferior right frontal lobe is again seen, possibly post traumatic. Chronic lacunar infarct in the superior right cerebellar hemisphere is again noted. There is no posterior fossa mass effect , the fourth ventricle is midline. Low attenuation of the subcortical and periventricular white mat ter is nonspecific, likely the sequela of chronic small vessel ischemia. The osseous structures are unremarkable. The mastoid air cells and visualized paranasal sinuses are clear. RPTAT:HJJR IMPRESSION: 1. No evidence of acute intracranial abnormality or interval change from 07/16/2016. 2. Inferior right frontal lobe encephalomalacia superimposed upon advanced atrophy for age is likel y the sequela of prior post traumatic contusion. 3. Chronic-appearing superior right cerebellar hemisphere infarct again noted. Physician Celeste Date Time Electronically viewed and signed by Physician Celeste on 08/15/2016 20:28 /
[2016-08-15 20:31] LABS: ALBUMIN 3.6 g/dl (3.3-4.9)
[2016-08-15 20:32] LABS: CHLORIDE 107 mmol/L (97-110); POTASSIUM 3.2 mmol/L (3.5-5.1); SODIUM 145 mmol/L (135-144)
[2016-08-15 20:34] LABS: BILIRUBIN,INDIRECT 0.1 mg/dl (0-1.1); BILIRUBIN,TOTAL 0.1 mg/dl (0.2-1.3); CREATININE 0.69 mg/dl (0.44-1.00)
[2016-08-15 20:35] LABS: ALANINE AMINOTRANSFERASE 32 IU/L (13-69); ALBUMIN/GLOBULIN RATIO 1.16; ALKALINE PHOSPHATASE 125 IU/L (42-121); ANION GAP 11 (8-16); ASPARTATE AMINO TRANSFERASE 40 IU/L (15-46); BLOOD UREA NITROGEN 15 mg/dl (7-20); CALCIUM 9.4 mg/dl (8.4-10.2); CARBON DIOXIDE 30 mmol/L (21-31); GLUCOSE 117 mg/dl (70-220); TOTAL PROTEIN 6.7 g/dl (6.1-8.1)
[2016-08-15 20:36] LABS: CREATINE KINASE 66 IU/L (23-200)
[2016-08-15] MEDS ORDERED: CHOL20003 PO (20:39)
[2016-08-15] MEDS ORDERED: GABA300C16 PO (20:39)
[2016-08-15] MEDS ORDERED: MELO-110 PO (20:40)
[2016-08-15] MEDS ORDERED: BACL10TA PO (20:41)
[2016-08-15] MEDS ORDERED: CLON-379 PO (20:41)
[2016-08-15] MEDS ORDERED: ALBU8.5H3 INH (20:42)
[2016-08-15 20:44] LABS: CK-MB 1.14 ng/ml (0.0-2.4)
--- NOTE | 2016-08-15 20:44 | RADRPT ---
PROCEDURE: XR Chest. CLINICAL INDICATION: Chest pain. TECHNIQUE: Single frontal chest x-ray. COMPARISON: 07/16/2016 FINDINGS: The patient status post sternotomy. Left subclavian biventricular pacemaker is present.. The heart is enlarged. There is no CHF.. Mild bibasilar atelectasis. Lungs are hyperinflated.. There is no pleural effusion. There is no pneumothorax. Bones are unchanged.. IMPRESSION: Cardiomegaly. Hyperinflation. Bibasilar atelectasis. Otherwise no change. RPTAT: HMVK .Andrew Leiva MD, Date Time Electronically viewed and signed by .Andrew Leiva MD, on 08/15/2016 20:44 .K/
[2016-08-15 20:45] LABS: B-TYPE NATRIURETIC PEPTIDE 606 PG/ML (0-125)
[2016-08-15 20:51] LABS: TROPONIN-I < 0.012 ng/ml (0.00-0.12)
[2016-08-15] MEDS ORDERED: hydrALAzine 20 MG INJ IV ONE (21:00)
[2016-08-15] MEDS ORDERED: HYDROmorphONE 1 MG/ML SYG IV STA (21:20)
[2016-08-15] MEDS ORDERED: POTASSIUM CHLORIDE (SR) 20 MEQ TAB PO STA (21:50)
[2016-08-15] MEDS ORDERED: ACETAMINOPHEN 325 MG TAB PO PRN (22:00)
[2016-08-15] MEDS ORDERED: ONDANSETRON 4 MG INJ IV PRN (22:00)
--- NOTE | 2016-08-15 22:18 | ERA ---
ER Documentation Chief Complaint Date/Time DATE: 08/15/16 TIME: 22:17 Chief Complaint HTN WITH HEADACHE AND CHEST PAIN THAT STARTED JUST PRIOR TO EMS CALL HPI This is a 65-year-old female presents to the emergency department complaining of a sudden onset of chest pain that occurred just prior to arrival. [facility] and vital signs have been performed and the patient complained of the chest pain. Her blood pressure was 228/114. She stated that the chest pressure did not radiate to the neck arm back or jaw. She also complained of a bandlike headache and stated this is not the worst headache of her life. She states she has no neck pain. She denied any associated symptoms of nausea vomiting or diaphoresis. The patient has a pacemaker present but is unable to indicate when the pacemaker was last interrogated. ROS All systems reviewed and are negative except as per history of present illness. Medications Home Meds Reported Medications Albuterol Sulfate* (Proair HFA*) 8.5 Gm Hfa.aer.ad, 2 PUFF INH Q4H Y for WHEEZING AND SOB, #1 INHALER 08/15/16 Clonidine Hcl* (Clonidine Hcl*) 0.1 Mg Tab, 0.1 MG PO DAILY, TAB 08/15/16 Baclofen* (Baclofen*) 10 Mg Tablet, 10 MG PO BID, TAB 08/15/16 Meloxicam* (Mobic*) 15 Mg Tablet, 15 MG PO DAILY, #30 TAB 08/15/16 Gabapentin* (Gabapentin*) 300 Mg Capsule, 300 MG PO BID, #60 CAP 08/15/16 Cholecalciferol (Vitamin D3) (VITAMIN D-3) 2,000 Unit Capsule, 2000 UNIT PO DAILY, CAP 08/15/16 Labetalol Hcl* (Labetalol Hcl*) 200 Mg Tablet, 200 MG PO DAILY, TAB 07/17/16 Docusate Calcium* (Stool Softener*) 240 Mg Capsule, 250 MG PO DAILY, CAP 07/17/16 Valsartan (Valsartan) 160 Mg Tablet, 160 MG PO BID, #60 TAB 07/17/16 Pyridostigmine [place]* (Pyridostigmine [place]*) 60 Mg Tablet, 60 MG PO BID, TAB 07/17/16 Tramadol HCl (Tramadol HCl) 50 Mg Tablet, 50 MG PO BID Y for PAIN, #120 TAB 07/17/16 Linaclotide (LINZESS) 290 Mcg Capsule, 290 MCG PO DAILY, #30 CAP 07/17/16 Zolpidem Tartrate* (Zolpidem Tartrate*) 10 Mg Tablet, 10 MG PO QHS Y for INSOMNIA, #30 TAB 07/17/16 Aspirin* (Aspirin* EC) 81 Mg Tablet.dr, 81 MG PO DAILY, TAB 07/17/16 Oxybutynin Chloride (Oxybutynin Chloride ER) 5 Mg Tab.er.24, 5 MG PO BID, TAB 07/17/16 Omeprazole* (Omeprazole*) 20 Mg Capsule.dr, 20 MG PO BID, #60 CAP 07/17/16 Ranitidine Hcl (HEARTBURN RELIEF) 150 Mg Tablet, 150 MG PO BID, TAB 07/17/16 Duloxetine Hcl* (Duloxetine Hcl*) 60 Mg Capsule.dr, 60 MG PO DAILY, #30 CAP 07/17/16 Lamotrigine* (Lamotrigine*) 100 Mg Tablet, 100 MG PO DAILY, TAB 07/17/16 Discontinued Reported Medications Diazepam* (Diazepam*) 10 Mg Tablet, 10 MG PO BID, TAB 07/17/16 Meloxicam* (Meloxicam*) 7.5 Mg/5 Ml Oral.susp, 15 MG PO DAILY, #300 ML 07/17/16 Cholecalciferol* (Vitamin D*) 400 Unit Tablet, 2000 UNIT PO DAILY, TAB 07/17/16 Lorazepam* (Lorazepam*) 1 Mg Tablet, 1 MG PO Q6 Y for ANXIETY, #60 TAB 07/17/16 Atorvastatin Calcium (Atorvastatin Calcium) 10 Mg Tablet, 20 MG PO QHS, #30 TAB 07/17/16 Gabapentin (GABAPENTIN) 300 Mg/6 Ml Solution, 300 MG PO BID 07/17/16 Metformin Hcl (Glucophage) 500 Mg Tablet, 1000 MG PO BID, #90 TAB 07/17/16 Discontinued Scripts Amlodipine Besylate* (Amlodipine Besylate*) 10 Mg Tablet, 10 MG PO DAILY, #60 TAB Prov:ROSANNA BIRMINGHAM 07/19/16 Allergies Allergies: Coded Allergies: No Known Allergy (Unverified , 08/15/16) PMhx/Soc History of Surgery: Yes (CABG, PACEMAKER) Anesthesia Reaction: No Hx Neurological Disorder: Yes (PREVIOUS CONTUSION, MYASTHENIA GRAVIS) Hx Respiratory Disorders: Yes (CHRONIC SMOKER) Hx Cardiac Disorders: Yes (HTN) Hx Psychiatric Problems: Yes (DEPRESSION, ANXIETY) Hx Miscellaneous Medical Probl: No Hx Alcohol Use: No Hx Substance Use: No Hx Tobacco Use: Yes Smoking Status: Current every day smoker Physical Exam Vitals Vital Signs Date Time Temp Pulse Resp B/P Pulse Ox O2 Delivery O2 Flow Rate FiO2 08/15/16 22:14 66 16 170/77 98 Nasal Cannula 2.0 08/15/16 19:09 98.2 66 17 215/98 97 Physical Exam Constitutional:Well-developed. Well-nourished. HEENT:Normocephalic. Atraumatic.Pupils were equal round reactive to light. Moist mucous membranes.No tonsillar exudates. Fundoscopy exam showed sharp optic disc bilateral Neck: No nuchal rigidity. No lymphadenopathy. No posterior cervical spine tenderness or step-offs. Respiratory: Not using accessory muscles of respiration.Lungs were clear to auscultation bilaterally. No rhonchi. No rales. No wheezing. Cardiovascular: Regular rate regular rhythm.No murmurs. No rubs were appreciated.S1, S2 normal. Distal pulses are palpable 2+ bilaterally. GI: Abdomen was soft. Nontender. Non Distended. No pulsatile abdominal masses or bruits. No rebound. No guarding. Bowel sounds were present and normal. Muscle skeletal: Full range of motion of both the upper and lower extremities bilaterally.Normal muscle tone.No assymetrical calf tenderness or swelling. Skin: No petechia, no purpura. No lesions on the palms or the soles of the feet. No maculopapular rash. NEURO: Patient was alert, awake, orientated x3.No facial droop. Gait observed and normal with no ataxia.Speech had regular rate and rhythm. No focal neurological deficits. Result Diagram: 08/15/16194308/15/161943 Results 24 hrs Laboratory Tests Test 08/15/16 19:02 08/15/16 19:44 Urine Color LT. YELLOW Urine Clarity CLEAR Urine pH 7.5 Urine Specific [place] 1.010 Urine Ketones NEGATIVE Urine Nitrite NEGATIVE Urine Bilirubin NEGATIVE Urine Urobilinogen 0.2 E.U./dL Urine Leukocyte Esterase TRACE Urine Microscopic RBC 0-2/HPF Urine Microscopic WBC 2-5/HPF Urine Squamous Epithelial Cells FEW Urine Hemoglobin NEGATIVE Urine Glucose NEGATIVE% Urine Total Protein NEGATIVE White Blood Count 4.610^3/ul Red Blood Count 4.3110^6/ul Hemoglobin 10.7g/dl Hematocrit 34.3% Mean Corpuscular Volume 79.6fl Mean Corpuscular Hemoglobin 24.8pg Mean Corpuscular Hemoglobin Concent 31.2g/dl Red Cell Distribution Width 15.9% Platelet Count 63023^3/UL Mean Platelet Volume 11.1fl Neutrophils % 46.4% Lymphocytes % 39.0% Monocytes % 8.4% Eosinophils % 5.6% Basophils % 0.4% Nucleated Red Blood Cells % 0.0/100WBC Neutrophils # 2.110^3/ul Lymphocytes # 1.810^3/ul Monocytes # 0.410^3/ul Eosinophils # 0.310^3/ul Basophils # 0.010^3/ul Nucleated Red Blood Cells # 0.010^3/ul Prothrombin Time 13.0Sec Prothrombin Time Ratio 1.0 INR International Normalized Ratio 0.98 Activated Partial Thromboplast Time 23.0Sec Sodium Level 145mmol/L Potassium Level 3.2mmol/L Chloride Level 107mmol/L Carbon Dioxide Level 30mmol/L Anion Gap 11 Blood Urea Nitrogen 15mg/dl Creatinine 0.69mg/dl Glucose Level 117mg/dl Calcium Level 9.4mg/dl Total Bilirubin 0.1mg/dl Direct Bilirubin 0.00mg/dl Indirect Bilirubin 0.1mg/dl Aspartate Amino Transf (AST/SGOT) 40IU/L Alanine Aminotransferase (ALT/SGPT) 32IU/L Alkaline Phosphatase 125IU/L Creatine Kinase 66IU/L Creatine Kinase Index 1.7 Creatinine Kinase MB (Mass) 1.14ng/ml Troponin I < 0.012ng/ml B-Type Natriuretic Peptide 606PG/ML Total Protein 6.7g/dl Albumin 3.6g/dl Globulin 3.10g/dl Albumin/Globulin Ratio 1.16 Current Medications Medications (Trade) Dose Ordered Sig/Gelacio Route PRN Reason Start Time Stop Time Status Last Admin Dose Admin Aspirin (Aspirin) 325 mg ONCE STAT PO 08/15/16 18:58 08/15/16 19:00 DC 08/15/16 19:50 Nitroglycerin (Nitroglycerin (Sl Tab) 0.4 Mg) 1 tab Q5M UP TO 3 DOSES PRN SL CHEST PAIN 08/15/16 19:00 08/15/16 19:51 Morphine Sulfate (morphine) 2 mg ONCE STAT IV 08/15/16 18:58 08/15/16 19:00 DC 08/15/16 19:51 Ondansetron HCl (Zofran Inj) 4 mg ONCE STAT IV 08/15/16 18:58 08/15/16 19:00 DC 08/15/16 19:50 Hydralazine HCl (Apresoline) 10 mg ONCE ONCE IV 08/15/16 21:00 08/15/16 21:01 DC 08/15/16 20:57 Hydromorphone HCl (Dilaudid) 1 mg ONCE STAT IV 08/15/16 21:20 08/15/16 21:21 DC 08/15/16 21:24 Ondansetron HCl (Zofran Inj) 4 mg ONCE STAT IV 08/15/16 21:20 08/15/16 21:21 DC Ondansetron HCl (Zofran Inj) 4 mg ER BRIDGE PRN IV NAUSEA AND/OR VOMITING 08/15/16 22:00 08/16/16 21:59 Acetaminophen (Tylenol Tab) 650 mg ER BRIDGE PRN PO MILD PAIN/FEVER 08/15/16 22:00 08/16/16 21:59 Potassium Chloride (Klor-Con 20) 20 meq ONCE STAT PO 08/15/16 21:50 08/15/16 21:52 DC 08/15/16 21:56 Procedures/MDM This patient presented to the emergency department with severely elevated blood pressure. My differential diagnosis included but was not limited to conditions that could end-organ damage such as acute coronary syndrome, acute pulmonary edema, aortic dissection, subarachnoid hemorrhage, intracerebral hemorrhage, cerebral infarction, withdrawal syndromes from beta blockers, or states of catecholamine excess such as pheochromocytoma or drug intoxication. The patient had uncontrolled hypertensive with end-organ damage to suggest hypertensive emergency. The treatment goal was immediate reduction of the mean arterial blood pressure. This was done in a controlled, graded manor, using improvement of the patient's condition as a guide. The patient's blood pressure reduction did not exceed more then a 20-25 percent reduction within the first 30 to 60 minutes. The patient was put on a pvc monitor, continuous pulse oximetry, and IV access was established by nursing staff. The antihypertensive agent used was IV hydralazine. Patient was experiencing active chest pain and she did receive aspirin and nitroglycerin with complete resolution of her chest discomfort. 12 Lead EKG tracing ordered and reviewed by myself showed: Electronically paced rhythm at 60 bpm and no arrhythmia. AR interval normal. QRS duration normal. No ST segment elevation No ST segment depression. No changes consistent with acute ischemia. CT scan of the patient's head or and reviewed by myself showed no acute intracerebral hemorrhage mass-effect or midline shift. Radiologist read the CT scan indicated the followin. No evidence of acute intracranial abnormality or interval change from 2016. 2. Inferior right frontal lobe encephalomalacia superimposed upon advanced atrophy for age is likely the sequela of prior post traumatic contusion. 3. Chronic-appearing superior right cerebellar hemisphere infarct again noted. The patient had a chest radiograph for and reviewed by myself showed cardiomegaly with hyperinflation. The patient will be admitted for observation under the care of the hospitalist Dr. Boo to the telemetry service. Critical Care: Time: 45 minutes Treatments/Evaluations: Close monitoring and treatment of unstable vital signs, cardiorespiratory, and neurologic status, while maintaining tight balance of fluid, respiratory, and cardiac interventions. Time does not include performing any of the above billable procedures. Departure Diagnosis: Primary Impression: Hypertensive emergency without congestive heart failure Additional Impression: Chest pain Qualified Code: R07.9 - Chest pain, unspecified type Condition: Serious MAGDALENO KAY August 15, 2016 22:18
[2016-08-16] VITALS (14 sets, daily range): BP systolic 125–215; BP diastolic 59–100; PULSE 65–82; RESP 17–20; Ht 167.6 cm; Wt 74.2 kg
[2016-08-16] MEDS ORDERED: hydrALAzine 20 MG INJ IV PRN (01:00)
[2016-08-16] MEDS ORDERED: hydrALAzine 20 MG INJ IV ONE (01:00)
[2016-08-16] MEDS ORDERED: ALBUTEROL 18 GM INHALER INH PRN (01:00)
[2016-08-16] MEDS: PYRIDOSTIGMINE 60 MG TAB PO SCH ×3 (01:00→21:19)
[2016-08-16] MEDS ORDERED: ZOLPIDEM 5 MG TAB PO PRN (01:00)
[2016-08-16] MEDS ORDERED: ACETAMINOPHEN 325 MG TAB PO PRN (01:00)
[2016-08-16] MEDS ORDERED: NITROGLYCERIN (SL) 0.4 MG TAB SL PRN (01:00)
[2016-08-16] MEDS ORDERED: ONDANSETRON 4 MG INJ IV PRN (01:00)
[2016-08-16] MEDS: morphine 2 MG INJ IV PRN ×2 (01:22→06:09)
[2016-08-16] MEDS: traMADol 50 MG TAB PO PRN ×2 (01:23→21:24)
[2016-08-16] MEDS: BACLOFEN 10 MG TAB PO SCH ×3 (01:23→21:20)
[2016-08-16] MEDS: VALSARTAN 160 MG TAB PO SCH ×3 (01:23→21:19)
[2016-08-16] MEDS: GABAPENTIN 300 MG CAP PO SCH ×3 (01:23→21:19)
[2016-08-16] MEDS: OXYBUTYNIN (XL) 5 MG TAB PO SCH ×3 (02:20→21:19)
--- NOTE | 2016-08-16 02:56 | HP ---
Date/Time of Note Date/Time of Note DATE: 08/16/16 TIME: 02:49 Assessment/Plan VTE Prophylaxis VTE Prophylaxis Intervention: heparin Lines/Catheters IV Catheter Type (from Nrs): Saline Lock Urinary Cath still in place: No Assessment/Plan Assessment/Plan 1. Chest pain - cont tele monitoring - Oxygen, ASA, BB, statin and as needed NTG & morphine - trend trops, first was neg and EKG electronically paced with 60 bpm. - Will obtain 2D-echo and cardiology consult 2. Hypertensive urgency: currently BP still severely elevated - Adjust BP meds as needed 3. Headache: likely 2/[address] head with no acute findings 4. DM - insulin while in-house 5. Pacemaker - EKG with no arrythmia 6. Old CVA - will place on ASA and statin - Cont BP control 7. Hx of Poly substance abuse - see H&P for more info 8. Anemia: likely 2/2 Iron def and chronic disease - Ferrous sulfate - monitor H&H 9. Hypokalemia - replete 10. Myasthenia Gravis - cont pyridostigmine HPI/ROS Admit Date/Time Admit Date/Time August 15, 2016 at 21:50 Hx of Present Illness This is a 65-year-old female with hx of myasthenia Gravis, HTN, DM, pacemaker, old CVA and poly substance abuse who was sent [facility] for chest pain and severely elevated BP (228/114). Chest pain is slightly left sided , pressure like with no associated N/V, diaphoresis or SOB. She did however report diffuse headache. Denied blurry vision or neck stiffness/pain. Patient was admitted here last month after overdosing on cocaine, Benzo and muscle relaxants. She was reportedly obtunded with agonal respirations. When pt arrived to ER today, BP was 215/98. first trop neg. EKG showed Electronically paced rhythm at 60 bpm. CXR showed Cardiomegaly, hyperinflation and bibasilar atelectasis. CT Head Inferior right frontal lobe encephalomalacia superimposed upon advanced atrophy for age is likely the sequela of prior post traumatic contusion and chronic-appearing superior right cerebellar hemisphere infarct again noted. . PMH/Family/Social Past Medical History HTN, DM, pacemaker, old CVA and poly substance abuse . Social History Alcohol Use: other Smoking Status: Current every day smoker Drug Use: cocaine Exam/Review of Systems Vital Signs Vitals Vital Signs Date Time Temp Pulse Resp B/P Pulse Ox O2 Delivery O2 Flow Rate FiO2 08/16/16 02:21 158/87 08/16/16 00:35 Nasal Cannula 2.0 08/16/16 00:25 97.8 67 19 98 Exam Constitutional: alert, oriented Eyes: EOMI, PERRL Respiratory: clear to auscultation, normal air movement Cardiovascular: nl pulses, regular rate and rhythm Gastrointestinal: non-tender, soft Extremities: normal pulses Labs Result Diagram: 08/15/16194308/15/161943 Medications Medications Current Medications Miscellaneous Information Patients own medicat... BID@ XX ; Start 08/16/16 at 10:00 Aspirin (Halfprin) 81 mg DAILY PO ; Start 08/16/16 at 09:00 Baclofen (Lioresal) 10 mg BID PO Last administered on 08/16/16 01:23; Admin Dose 10 MG; Start 08/16/16 at 01:00 Cholecalciferol (Vitamin D) 2,000 unit DAILY PO ; Start 08/16/16 at 09:00 Docusate Calcium (Surfak) 240 mg DAILY PO ; Start 08/16/16 at 09:00 Duloxetine HCl (Cymbalta) 60 mg DAILY PO ; Start 08/16/16 at 09:00 Gabapentin (Neurontin) 300 mg BID PO Last administered on 08/16/16 01:23; Admin Dose 300 MG; Start 08/16/16 at 01:00 Labetalol HCl (Normodyne) 200 mg BID PO ; Start 08/16/16 at 09:00 Lamotrigine (Lamictal) 100 mg DAILY PO ; Start 08/16/16 at 09:00 Meloxicam (Mobic) 15 mg DAILY PO ; Start 08/16/16 at 09:00 Oxybutynin Chloride (Ditropan Xl) 5 mg BID PO ; Start 08/16/16 at 01:00 Pyridostigmine [place] (Mestinon) 60 mg BID PO ; Start 08/16/16 at 01:00 Tramadol HCl (Ultram) 50 mg BID PRN PO PAIN Last administered on 08/16/16 01: 23; Admin Dose 50 MG; Start 08/16/16 at 01:00 Valsartan (Diovan) 160 mg BID PO Last administered on 08/16/16 01:23; Admin Dose 160 MG; Start 08/16/16 at 01:00 Miscellaneous Information 290 mcg DAILY PO ; Start 08/16/16 at 09:00; Status UNV Pantoprazole (Protonix Tab) 40 mg BID@06,18 PO ; Start 08/16/16 at 06:00 Hydralazine HCl (Apresoline) 10 mg Q4H PRN IV SBP >160; Start 08/16/16 at 01:00 Hydralazine HCl (Apresoline) 10 mg Q8 PO ; Start 08/16/16 at 06:00 Morphine Sulfate (morphine) 2 mg Q4H PRN IV PAIN Last administered on 01:22; Admin Dose 2 MG; Start 08/16/16 at 01:00 Acetaminophen (Tylenol Tab) 650 mg Q6H PRN PO PAIN AND OR ELEVATED TEMP; Start 08/16/16 at 01:00 Enoxaparin Sodium (Lovenox) 40 mg DAILY SC ; Start 08/16/16 at 09:00 Nitroglycerin (Nitroglycerin (Sl Tab) 0.4 Mg) 1 tab Q5M PRN SL ANGINA; Start at 01:00 Ondansetron HCl (Zofran Inj) 4 mg Q6H PRN IV NAUSEA AND/OR VOMITING; Start 01/23 at 01:00 JESUS LYMAN MD August 16, 2016 02:56
[2016-08-16] MEDS ORDERED: GUAIFENESIN/DM 5ML CUP PO PRN (04:00)
[2016-08-16] MEDS: HYDROCODONE/APAP (10/325) TAB PO PRN ×2 (04:01→14:43)
[2016-08-16] MEDS: PANTOPRAZOLE (EC) 40 MG TAB PO SCH ×2 (05:53→17:45)
[2016-08-16 06:50] LABS: ADD SCAN DIFF NO
[2016-08-16 06:55] LABS: BASOPHILS % 0.3 % (0.0-2.0); EOSINOPHILS # 0.3 10^3/ul (0.0-0.5); EOSINOPHILS % 3.5 % (0.0-7.0); HEMATOCRIT 35.4 % (37.0-47.0); HEMOGLOBIN 10.9 g/dl (12.0-16.0); LYMPHOCYTES # 1.6 10^3/ul (0.8-2.9); LYMPHOCYTES % 22.4 % (15.0-51.0); MEAN CORPUSCULAR HEMOGLOBIN 24.8 pg (29.0-33.0); MEAN CORPUSCULAR HGB CONC 30.8 g/dl (32.0-37.0); MEAN CORPUSCULAR VOLUME 80.5 fl (82.0-101.0); MONOCYTE # 0.5 10^3/ul (0.3-0.9); MONOCYTES % 7.2 % (0.0-11.0); NEUTROPHIL # 4.8 10^3/ul (1.6-7.5); NEUTROPHILS % 66.5 % (39.0-77.0); PLATELET COUNT 211 10^3/UL (140-415); RED CELL DISTRIBUTION WIDTH 16.2 % (11.5-14.5); WHITE BLOOD COUNT 7.2 10^3/ul (4.8-10.8)
[2016-08-16 07:19] LABS: CREATINE KINASE 51 IU/L (23-200)
[2016-08-16 07:20] LABS: ALBUMIN 3.3 g/dl (3.3-4.9)
[2016-08-16 07:21] LABS: POTASSIUM 3.7 mmol/L (3.5-5.1)
[2016-08-16 07:23] LABS: ALBUMIN/GLOBULIN RATIO 1.13; BILIRUBIN,INDIRECT 0.2 mg/dl (0-1.1); BILIRUBIN,TOTAL 0.2 mg/dl (0.2-1.3); CREATININE 0.63 mg/dl (0.44-1.00); TOTAL PROTEIN 6.2 g/dl (6.1-8.1)
[2016-08-16 07:24] LABS: MAGNESIUM 1.6 mg/dl (1.7-2.5)
[2016-08-16 07:25] LABS: CHOL/HDL RATIO 1.2 RATIO
[2016-08-16 07:26] LABS: CK-MB 0.62 ng/ml (0.0-2.4)
[2016-08-16 07:33] LABS: TROPONIN-I < 0.012 ng/ml (0.00-0.12)
[2016-08-16] MEDS ORDERED: LINZESS XX SCH (08:30)
[2016-08-16] MEDS: ASPIRIN (EC) 81 MG TAB PO SCH (08:36)
[2016-08-16] MEDS: LAMOTRIGINE 100 MG TAB PO SCH (08:37)
[2016-08-16] MEDS: DOCUSATE CALCIUM 240 MG CAP PO SCH (08:37)
[2016-08-16] MEDS: MELOXICAM 15 MG TAB PO SCH (08:38)
[2016-08-16] MEDS: LABETALOL 200 MG TAB PO SCH ×2 (08:38→21:19)
[2016-08-16] MEDS: DULOXETINE 30 MG CAP DR PO SCH (08:39)
[2016-08-16] MEDS: CHOLECALCIFEROL 2,000 UNIT CAP PO SCH (08:40)
[2016-08-16] MEDS: ENOXAPARIN 40 MG/0.4 ML SYG SC SCH (08:48)
[2016-08-16] MEDS ORDERED: NON-FORMULARY/PATIENT OWN MED (Linaclotide (Linzess) 290 MCG) PO SCH (09:00)
[2016-08-16 12:43] LABS: CREATINE KINASE 42 IU/L (23-200)
[2016-08-16] MEDS: LINACLOTIDE 290 MCG PO SCH (12:46)
[2016-08-16 12:52] LABS: CK-MB 0.54 ng/ml (0.0-2.4)
[2016-08-16 12:57] LABS: TROPONIN-I < 0.012 ng/ml (0.00-0.12)
--- NOTE | 2016-08-16 13:32 | PN ---
Date/Time of Note Date/Time of Note DATE: 08/16/16 TIME: 13:29 Assessment/Plan VTE Prophylaxis VTE Prophylaxis Intervention: LMWH Lines/Catheters IV Catheter Type (from Nrs): Saline Lock Urinary Cath still in place: No Assessment/Plan Chief Complaint/Hosp Course Assessment/Plan 1. Chest pain - cont tele monitoring, likely costochondritis - Oxygen, ASA, BB, statin and as needed NTG & morphine -Serial of trops are negative, first was neg and EKG electronically paced with 60 bpm. - Will obtain 2D-echo 2. Hypertensive urgency: Resolved - Adjust BP meds as needed 3. Headache: likely 2/[address] head with no acute findings 4. DM - insulin and low-carb diet while in-house 5. Pacemaker - EKG with no arrythmia 6. Old CVA - will place on ASA and statin - Cont BP control 7. Hx of Poly substance abuse Education was provided 8. Anemia: likely 2/2 Iron def and chronic disease - Ferrous sulfate - monitor H&H 9. Hypokalemia - replete 10. Myasthenia Gravis - cont pyridostigmine We will continue monitor patient closely for recommendation management treatment as clinical course Plan to discharge home tomorrow Problems: Subjective 24 Hr Interval Summary Free Text/Dictation Patient complains of having posterior thoracic pain and shoulder pain Also complains of generalized pain No nausea vomiting diarrhea Denies of any chest pain or shortness of breath According to her significant other patient still smokes 6-8 cigarettes per day Exam/Review of Systems Vital Signs Vitals Vital Signs Date Time Temp Pulse Resp B/P Pulse Ox O2 Delivery O2 Flow Rate FiO2 08/16/16 12:19 76 08/16/16 11:32 98.8 18 134/69 92 08/16/16 10:00 Nasal Cannula 2.0 Intake and Output 08/15/16 08/15/16 08/16/16 15:00 23:00 07:00 Intake Total 120 ml Output Total 550 ml Balance -430 ml Exam General: The patient is well-developed, Not in acute distress. HEENT: Atraumatic, normocephalic. The pupils are equal and round . Neck: Supple with full range of motion. Chest: Normal expansion of the thorax during inspiration Lungs: Clear to auscultation bilaterally Heart: Normal S1-S2, Regular rhythm and rate. Abdomen: Soft , nontender, nondistended , bowel sounds are present. Extremities: Normal to inspection, +1 edema no cyanosis Neurologic: Normal mental status,The patient is awake, alert and oriented . Results Result Diagram: 08/16/16 0604 08/16/16 0609 Results 24 hrs Laboratory Tests Test 08/15/16 19:02 08/15/16 19:44 08/16/16 06:04 08/16/16 06:09 Urine Color LT. YELLOW Urine Clarity CLEAR Urine pH 7.5 Urine Specific [place] 1.010 Urine Ketones NEGATIVE Urine Nitrite NEGATIVE Urine Bilirubin NEGATIVE Urine Urobilinogen 0.2 E.U./dL Urine Leukocyte Esterase TRACE H Urine Microscopic RBC 0-2 Urine Microscopic WBC 2-5 Urine Squamous Epithelial Cells FEW Urine Hemoglobin NEGATIVE Urine Glucose NEGATIVE Urine Total Protein NEGATIVE White Blood Count 4.6 #L 7.2 # Red Blood Count 4.31 4.40 Hemoglobin 10.7 L 10.9 L Hematocrit 34.3 L 35.4 L Mean Corpuscular Volume 79.6 L 80.5 L Mean Corpuscular Hemoglobin 24.8 L 24.8 L Mean Corpuscular Hemoglobin Concent 31.2 L 30.8 L Red Cell Distribution Width 15.9 H 16.2 H Platelet Count 209 # 211 Mean Platelet Volume 11.1 H 11.0 H Neutrophils % 46.4 66.5 Lymphocytes % 39.0 22.4 Monocytes % 8.4 7.2 Eosinophils % 5.6 3.5 Basophils % 0.4 0.3 Nucleated Red Blood Cells % 0.0 0.0 Neutrophils # 2.1 4.8 Lymphocytes # 1.8 1.6 Monocytes # 0.4 0.5 Eosinophils # 0.3 0.3 Basophils # 0.0 0.0 Nucleated Red Blood Cells # 0.0 0.0 Prothrombin Time 13.0 Prothrombin Time Ratio 1.0 INR International Normalized Ratio 0.98 Activated Partial Thromboplast Time 23.0 L Sodium Level 145 H 144 Potassium Level 3.2 L 3.7 Chloride Level 107 107 Carbon Dioxide Level 30 28 Anion Gap 11 13 Blood Urea Nitrogen 15 18 Creatinine 0.69 0.63 Glucose Level 117 149 Calcium Level 9.4 9.0 Total Bilirubin 0.1 L 0.2 Direct Bilirubin 0.00 0.00 Indirect Bilirubin 0.1 0.2 Aspartate Amino Transf (AST/SGOT) 40 36 Alanine Aminotransferase (ALT/SGPT) 32 36 Alkaline Phosphatase 125 H 100 Creatine Kinase 66 51 Creatine Kinase Index 1.7 1.2 Creatinine Kinase MB (Mass) 1.14 0.62 Troponin I < 0.012 < 0.012 B-Type Natriuretic Peptide 606 H Total Protein 6.7 6.2 Albumin 3.6 3.3 Globulin 3.10 2.90 Albumin/Globulin Ratio 1.16 1.13 Hemoglobin A1c 5.6 Thyroid Stimulating Hormone (TSH) 0.777 Phosphorus Level 4.0 Magnesium Level 1.6 L Triglycerides Level 57 Cholesterol Level 93 L LDL Cholesterol, Calculated 7 HDL Cholesterol 75 Cholesterol/HDL Ratio 1.2 Test 08/16/16 12:00 Creatine Kinase 42 Creatine Kinase Index 1.3 Creatinine Kinase MB (Mass) 0.54 Troponin I < 0.012 Medications Medications Current Medications Miscellaneous Information Patients own medicat... BID@ XX ; Start 08/16/16 at 10:00 Aspirin (Halfprin) 81 mg DAILY PO Last administered on 08/16/16 08:36; Admin Dose 81 MG; Start 08/16/16 at 09:00 Baclofen (Lioresal) 10 mg BID PO Last administered on 08/16/16 08:37; Admin Dose 10 MG; Start 08/16/16 at 01:00 Cholecalciferol (Vitamin D) 2,000 unit DAILY PO Last administered on 08/16/16 08:40; Admin Dose 2,000 UNIT; Start 08/16/16 at 09:00 Docusate Calcium (Surfak) 240 mg DAILY PO Last administered on 08/16/16 08:37 ; Admin Dose 240 MG; Start 08/16/16 at 09:00 Duloxetine HCl (Cymbalta) 60 mg DAILY PO Last administered on 08/16/16 08:39; Admin Dose 60 MG; Start 08/16/16 at 09:00 Gabapentin (Neurontin) 300 mg BID PO Last administered on 08/16/16 08:40; Admin Dose 300 MG; Start 08/16/16 at 01:00 Labetalol HCl (Normodyne) 200 mg BID PO Last administered on 08/16/16 08:38; Admin Dose 200 MG; Start 08/16/16 at 09:00 Lamotrigine (Lamictal) 100 mg DAILY PO Last administered on 08/16/16 08:37; Admin Dose 100 MG; Start 08/16/16 at 09:00 Meloxicam (Mobic) 15 mg DAILY PO Last administered on 08/16/16 08:38; Admin Dose 15 MG; Start 08/16/16 at 09:00 Oxybutynin Chloride (Ditropan Xl) 5 mg BID PO Last administered on 08/16/16 08 :36; Admin Dose 5 MG; Start 08/16/16 at 01:00 Pyridostigmine Edson (Mestinon) 60 mg BID PO Last administered on 08/16/16 08:39; Admin Dose 60 MG; Start 08/16/16 at 01:00 Tramadol HCl (Ultram) 50 mg BID PRN PO PAIN Last administered on 08/16/16 01: 23; Admin Dose 50 MG; Start 08/16/16 at 01:00 Valsartan (Diovan) 160 mg BID PO Last administered on 08/16/16 08:36; Admin Dose 160 MG; Start 08/16/16 at 01:00 Pantoprazole (Protonix Tab) 40 mg BID@06,18 PO Last administered on 08/16/16 05:53; Admin Dose 40 MG; Start 08/16/16 at 06:00 Hydralazine HCl (Apresoline) 10 mg Q4H PRN IV SBP >160; Start 08/16/16 at 01:00 Hydralazine HCl (Apresoline) 10 mg Q8 PO Last administered on 08/16/16 13:05; Admin Dose 10 MG; Start 08/16/16 at 06:00 Morphine Sulfate (morphine) 2 mg Q4H PRN IV PAIN Last administered on 06:09; Admin Dose 2 MG; Start 08/16/16 at 01:00 Acetaminophen (Tylenol Tab) 650 mg Q6H PRN PO PAIN AND OR ELEVATED TEMP; Start 08/16/16 at 01:00 Enoxaparin Sodium (Lovenox) 40 mg DAILY SC Last administered on 08/16/16 08:48 ; Admin Dose 40 MG; Start 08/16/16 at 09:00 Nitroglycerin (Nitroglycerin (Sl Tab) 0.4 Mg) 1 tab Q5M PRN SL ANGINA; Start at 01:00 Ondansetron HCl (Zofran Inj) 4 mg Q6H PRN IV NAUSEA AND/OR VOMITING; Start 01/23 at 01:00 Atorvastatin Calcium (Lipitor) 20 mg HS PO ; Start 08/16/16 at 21:00 Acetaminophen/ Hydrocodone Bitart ([place] ()) 1 tab Q6H PRN PO PAIN LEVEL 1-5 Last administered on 08/16/16 04:01; Admin Dose 1 TAB; Start 08/16/16 at 04 :00 Guaifenesin/ Dextromethorphan (Robitussin Dm Liquid Cup) 10 ml Q4H PRN PO COUGH Last administered on 08/16/16 04:01; Admin Dose 10 ML; Start 08/16/16 at 04:00 Patient Own Medication 1 ea DAILY PO Last administered on 08/16/16 12:46; Admin Dose 1 EA; Start 08/16/16 at 12:00 CARLYN WOODSON MD August 16, 2016 13:32
--- NOTE | 2016-08-16 20:57 | RADRPT ---
Echocardiogram Report Patient Name: JIMBO BOATENG Gender: Female Date: 1950 Study Date: 16-Aug-2016 Ore Grader: Tamia Tate RDCS Location: 505 Ref. Physician: CARLYN WOODSON Quality: Adequate Procedures: Transthoracic echocardiogram with complete 2D, M-Mode, and doppler examination. Indications: Congestive Heart Failure. 2D/M Mode Doppler Measurement Value Normal Ranges Measurement Value Normal Ranges LVIDd 2D 5.1 3.5 - 5.6 cm AV Peak Renato 1.6 m/sec LVIDs 2D 3.3 2.1 - 4.1 cm AV Peak PG 9.7 mmHg LVPWd 2D 1.3 0.6 - 1.1 cm LVOT Peak Renato 1.2 m/sec IVSd 2D 1.3 0.6 - 1.1 cm LVOT Peak PG 5.6 mmHg AoR Diam 2D 2.3 2.0 - 3.7 cm MV E Peak Renato 0.6 m/sec EDV 2D 126.6 cm3 MV A Peak Renato 1.1 m/sec ESV 2D 34.4 cm3 MV E/A 0.6 LA Dimen 2D 3.7 2.3 - 4.0 cm MV Decel Time 262 msec MV Decel Grimes 2 MV E/A 0.6 TR Peak Renato 2.5 m/sec TR Peak PG 25.3 mmHg RVSP 28.0 mmHg Findings Left Ventricle: Normal left ventricular systolic function. Normal left ventricular cavity size. Mild concentric left ventricular hypertrophy. Ejection fraction is visually estimated at 6065 %. Tissue Doppler/Mitral Doppler indices are consistent with impaired relaxation (Stage I diastolic dysfunction). Right Ventricle: Normal right ventricular size. Normal right ventricular systolic function. Left Atrium: The left atrium is normal in size. Right Atrium: The right atrium is normal in size. Mitral Valve: Normal appearance and function of the mitral valve with trace physiologic regurgitation. Aortic Valve: No significant aortic stenosis or insufficiency. Aortic cusps appear mildly calcified. Tricuspid Valve: Normal appearance of the tricuspid valve. Estimated peak PA systolic pressure 28 mmHg. There is trace tricuspid regurgitation. Pulmonic Valve: Normal pulmonic valve appearance. Pericardium: Normal pericardium with no significant pericardial effusion. Aorta: Normal aortic root. IVC: Normal size and normal respiratory collapse consistent with normal right atrial pressure. Conclusions 1.The left ventricle is normal in size and systolic function. 2.Estimated left ventricular ejection fraction of 60-65%. 3.Mild concentric left ventricular hypertrophy. Mild left ventricular diastolic dysfunction. Electronically Signed By: Silverio Martinez 16-Aug-2016 20:56:37 -0700 Patient Name: JIMBO BOATENG Study Date: 16-Aug-2016 [id number]
[2016-08-16] MEDS ORDERED: ATORVASTATIN 10 MG TAB PO SCH (21:00)
[2016-08-16] MEDS ORDERED: ATORVASTATIN 20 MG TAB PO SCH (21:00)
[2016-08-17 00:03] VITALS: PULSE 61
[2016-08-17 04:00] VITALS: BP 132/65; RESP 18
[2016-08-17 04:21] VITALS: PULSE 60
[2016-08-17] MEDS: traMADol 50 MG TAB PO PRN (05:00)
[2016-08-17] MEDS: PANTOPRAZOLE (EC) 40 MG TAB PO SCH (05:01)
[2016-08-17 07:10] LABS: ADD SCAN DIFF NO
[2016-08-17 07:16] LABS: BASOPHILS % 0.4 % (0.0-2.0); EOSINOPHILS # 0.2 10^3/ul (0.0-0.5); EOSINOPHILS % 3.3 % (0.0-7.0); HEMATOCRIT 32.6 % (37.0-47.0); HEMOGLOBIN 9.9 g/dl (12.0-16.0); LYMPHOCYTES # 1.7 10^3/ul (0.8-2.9); LYMPHOCYTES % 37.9 % (15.0-51.0); MEAN CORPUSCULAR HEMOGLOBIN 25.1 pg (29.0-33.0); MEAN CORPUSCULAR HGB CONC 30.4 g/dl (32.0-37.0); MEAN CORPUSCULAR VOLUME 82.5 fl (82.0-101.0); MEAN PLATELET VOLUME 11.4 fl (7.4-10.4); MONOCYTE # 0.4 10^3/ul (0.3-0.9); MONOCYTES % 9.6 % (0.0-11.0); NEUTROPHIL # 2.2 10^3/ul (1.6-7.5); NEUTROPHILS % 48.4 % (39.0-77.0); PLATELET COUNT 172 10^3/UL (140-415); RED BLOOD COUNT 3.95 10^6/ul (4.20-5.40); RED CELL DISTRIBUTION WIDTH 16.1 % (11.5-14.5); WHITE BLOOD COUNT 4.5 10^3/ul (4.8-10.8)
[2016-08-17 07:27] VITALS: BP 125/56; RESP 20
[2016-08-17 07:42] LABS: CALCIUM 8.9 mg/dl (8.4-10.2); CREATININE 0.88 mg/dl (0.44-1.00); MAGNESIUM 1.8 mg/dl (1.7-2.5); POTASSIUM 3.9 mmol/L (3.5-5.1)
[2016-08-17] MEDS: HYDROCODONE/APAP (10/325) TAB PO PRN (07:44)
[2016-08-17 08:06] VITALS: PULSE 70
[2016-08-17] MEDS: DOCUSATE CALCIUM 240 MG CAP PO SCH (08:42)
[2016-08-17] MEDS: LINACLOTIDE 290 MCG PO SCH (08:42)
[2016-08-17] MEDS: VALSARTAN 160 MG TAB PO SCH (08:42)
[2016-08-17] MEDS: LABETALOL 200 MG TAB PO SCH (08:42)
[2016-08-17] MEDS: DULOXETINE 30 MG CAP DR PO SCH (08:42)
[2016-08-17] MEDS: PYRIDOSTIGMINE 60 MG TAB PO SCH (08:42)
[2016-08-17] MEDS: OXYBUTYNIN (XL) 5 MG TAB PO SCH (08:43)
[2016-08-17] MEDS: GABAPENTIN 300 MG CAP PO SCH (08:43)
[2016-08-17] MEDS: CHOLECALCIFEROL 2,000 UNIT CAP PO SCH (08:43)
[2016-08-17] MEDS: BACLOFEN 10 MG TAB PO SCH (08:43)
[2016-08-17] MEDS: ASPIRIN (EC) 81 MG TAB PO SCH (08:43)
[2016-08-17] MEDS: LAMOTRIGINE 100 MG TAB PO SCH (08:43)
[2016-08-17] MEDS: ENOXAPARIN 40 MG/0.4 ML SYG SC SCH (08:49)
--- NOTE | 2016-08-17 10:17 | PDOCDIS ---
Discharge Instructions CONDITION Patient Condition: Good HOME CARE INSTRUCTIONS: Special Diet: Cardiac ACTIVITY: Activity Restrictions: Slowly Increase Activity Rest between Activity Avoid heavy lifting FOLLOW UP/APPOINTMENTS Appointments Follow up with PCP as out-pt Follow up with cardiology as out-pt CARLYN WOODSON MD August 17, 2016 10:17
[2016-08-17] MEDS ORDERED: NIT4 SL (10:21)
[2016-08-17] MEDS ORDERED: HYDR-3670 PO (10:21)
[2016-08-17] MEDS ORDERED: UDROBDM PO (10:21)
[2016-08-17] MEDS: MELOXICAM 15 MG TAB PO SCH (11:08)
--- NOTE | 2016-08-17 12:11 | DS ---
DATE OF ADMISSION: 08/15/2016 DATE OF DISCHARGE: 08/17/2016 CONSULTANTS: None. PROCEDURE: A 2-D echocardiogram which demonstrated left ventricle is normal in size and systolic fu nction. Estimated left ventricular ejection fraction 60% to 65%. Mild concentric left ventricular hypertrophy. Mild left ventricular diastolic dysfunction. DISCHARGE DIAGNOSES: 1. Atypical chest pain. This is likely secondary to costochondritis. Serial troponins were found to be negative. A 2-D echocardiogram showed normal ejection fraction of 60% to 65%. 2. Hypertensive urgency, resolved. Blood pressure medication has been adjusted. 3. Headache, likely secondary to the blood pressure, also, generalized body aches. 4. Diabetes mellitus, on insulin. 5. Status post pacemaker, no arrhythmia. 6. History of cerebrovascular accident. Continue aspirin and control blood pressure. 7. History of polysubstance abuse. Education was provided. 8. Anemia, likely secondary to iron deficiency, chronic disease. 9. Hypokalemia, repleted. 10. Myasthenia gravis. Continue pyridostigmine. 11. History of nicotine dependency. Education was provided. 12. Major depression. Continue duloxetine. 13. Neuropathy. Continue gabapentin. 14. Seizure disorder. Continue Lamictal. 15. Osteoarthritis. Continue pain medication. MEDICATIONS: 1. Robitussin. 2. Hydralazine. 3. Nitroglycerin. 4. ProAir HFA. 5. Aspirin. 6. Baclofen. 7. Vitamin D. 8. Colace. 9. Duloxetine. 10. Gabapentin. 11. Labetalol. 12. Lamotrigine. 13. Linzess. 14. Mobic. 15. Omeprazole. 16. Oxybutynin. 17. Pyridostigmine. 18. Tramadol. 19. Valsartan. 20. Ambien. DISCONTINUED MEDICATIONS: 1. Clonidine. 2. Ranitidine. ALLERGIES: NO KNOWN DRUG ALLERGIES. LABORATORY DATA: This morning, sodium 138, potassium 3.9, chloride 109, bicarbonate 27, BUN 28, cre atinine 0.88, glucose 114, hemoglobin A1c of 5.6, calcium 8.9, magnesium 1.8. Troponin negative x3. Albumin 3.3. Triglycerides 57, total cholesterol 93, LDL 7, HDL 75. TSH 0.77. HOSPITAL COURSE: This is a 65-year-old female with past medical history of coronary artery disease, [place], CVA, hypertension, prediabetic, polysubstance abuse, anemia, myasthenia gravis, depression, carli g seeking behavior, who presents to [facility] secondary to having generalized bod y aches and chest discomfort. The patient's EKG did not show any sign of acute ST elevation or depr ession, no sign of ischemia. Troponin was found to be negative. The patient was admitted to teleme try floor, was placed on aspirin. Her statin was placed on hold secondary to LDL was found to be 7, with total cholesterol of 93, triglycerides of 57. Serial troponins were found to be negative. A 2-D echocardiogram was obtained which showed normal ejection fraction of 60% to 65%. Her examinatio n demonstrated costochondritis. The patient has been having generalized body aches and has been on a great amount of pain medication and she still continues to request for more pain medication during this course of hospitalization. In regard to hypertension, her blood pressure at the time of admission was 215/98. This is likely s econdary to noncompliance with her medication. The patient was restarted on all her medications and her blood pressure at this time is 125/56. She has not required any additional medication except t he patient's clonidine was discontinued and was placed on hydralazine 10 mg. Regarding her prediabe tic. Her hemoglobin A1c was found to be 5.6. Her thyroid panel was within normal limits. The sage ent was monitored during this course of hospitalization on telemetry floor and there was no sign of arrhythmia. She also was continued on aspirin and control of blood pressure for her history of CVA. Her anemia is stable. She was found to be hypokalemic and it was repleted during this course of h ospitalization. At this time, the patient is medically stable to be discharged home. Her temperatu re is 98.0, pulse 65, respirations 20, blood pressure 124/57, saturation 94% to 97% on room air. I had a lengthy talk with her regarding her history of smoking and opiate dependency. The patient n eeds to follow up with her primary care doctor regarding adjustment of her pain medication. CONDITION AT TIME OF DISCHARGE: Stable. Dictated By: CARLYN STOUT/REBECCA Conf#: [id number] [facility]#: [id number]
== END 2016-08-17 12:35 | disposition home or self-care (01) ==
LOC: E/R 18:42 → TEL 21:50 → INTOOBSV 21:50 → TEL 23:44
PROVIDERS: ADMIT Internal Medicine; ATTEND Internal Medicine
DX: R07.89 Other chest pain (principal); I16.0 Hypertensive urgency; R51 Headache; E11.9 Type 2 diabetes mellitus without complications; Z79.4 Long term (current) use of insulin; Z95.0 Presence of cardiac pacemaker; Z86.73 Personal history of transient ischemic attack (TIA), and cerebral infarction without residual deficits; D64.9 Anemia, unspecified; E87.6 Hypokalemia; G70.00 Myasthenia gravis without (acute) exacerbation; F32.9 Major depressive disorder, single episode, unspecified; G62.9 Polyneuropathy, unspecified; G40.909 Epilepsy, unspecified, not intractable, without status epilepticus; M19.90 Unspecified osteoarthritis, unspecified site; Z79.82 Long term (current) use of aspirin; I25.10 Atherosclerotic heart disease of native coronary artery without angina pectoris; Z95.1 Presence of aortocoronary bypass graft; F17.200 Nicotine dependence, unspecified, uncomplicated; F41.9 Anxiety disorder, unspecified
CPT/HCPCS: 36415; 70450; 71010; 80048; 80053; 80061; 81001; 82550; 82553; 83036; 83735; 83880; 84100; 84443; 84484; 85025; 85610; 85730; 87081; 93005; 93306; 96372; 96374; 96375; 96376; 99291; G0378; J0360; J1170; J1650; J2270; J2405; 81003; 99217

== ENCOUNTER 2016-09-15 14:09 | Inpatient (IN) | payer MEDICARE, OTHER ==
[~2016-09-15] VITALS: Ht 157.5 cm; Wt 77.7 kg
[~2016-09-15 14:09] MED LIST changes: +ALBU8.5H3 INH; -AMLO-147 PO; -ATOR10TA65 PO; +BACL10TA PO; +CHOL20003 PO; -CHOL400T10 PO; -DIAZ10TA4 PO; +GABA300C16 PO; -GABA300S PO; +HYDR-3670 PO; -LORA1TAB PO; +MELO-110 PO; -MELO7.5O PO; -METF500T PO; +NIT4 SL; -RANI-428 PO; +UDROBDM PO
[2016-09-15] MEDS ORDERED: CEFEPIME 2GM/50 ML (PMX) 50 ML IVPB STA (14:46)
[2016-09-15] MEDS ORDERED: SODIUM CHLORIDE 0.9% 1L BAG IV* STA (14:46)
[2016-09-15] MEDS ORDERED: ACETAMINOPHEN 650 MG SUPP PR STA (14:46)
[2016-09-15] MEDS ORDERED: VANCOMYCIN 1 GM (PMX) 250 ML IVPB ONE (15:00)
[2016-09-15 15:15] LABS: ADD SCAN DIFF NO
[2016-09-15 15:22] LABS: BASOPHILS % 0.3 % (0.0-2.0); EOSINOPHILS # 0.1 10^3/ul (0.0-0.5); EOSINOPHILS % 1.7 % (0.0-7.0); HEMATOCRIT 30.7 % (37.0-47.0); HEMOGLOBIN 9.4 g/dl (12.0-16.0); LYMPHOCYTES # 1.1 10^3/ul (0.8-2.9); LYMPHOCYTES % 16.7 % (15.0-51.0); MEAN CORPUSCULAR HGB CONC 30.6 g/dl (32.0-37.0); MEAN CORPUSCULAR VOLUME 81.6 fl (82.0-101.0); MEAN PLATELET VOLUME 10.1 fl (7.4-10.4); MONOCYTE # 0.5 10^3/ul (0.3-0.9); MONOCYTES % 7.7 % (0.0-11.0); NEUTROPHIL # 4.6 10^3/ul (1.6-7.5); NEUTROPHILS % 73.1 % (39.0-77.0); PLATELET COUNT 182 10^3/UL (140-415); RED BLOOD COUNT 3.76 10^6/ul (4.20-5.40); RED CELL DISTRIBUTION WIDTH 16.5 % (11.5-14.5); WHITE BLOOD COUNT 6.4 10^3/ul (4.8-10.8)
[2016-09-15] MEDS ORDERED: NALOXONE (0.4 MG/ML) INJ IV ONE (15:30)
[2016-09-15] MEDS ORDERED: LIDOCAINE 1% (MPF) 5 ML VIAL SC ONE (15:30)
[2016-09-15 15:36] LABS: INR 1.06; PROTIME 13.8 Sec (12.2-14.2); PT RATIO 1.1
[2016-09-15 15:39] LABS: ADD UMIC YES; URINE BILIRUBIN (Dip) NEGATIVE (NEGATIVE); URINE BLOOD (Dip) NEGATIVE (NEGATIVE); URINE COLOR LT. YELLOW (YELLOW); URINE GLUCOSE (Dip) NEGATIVE (NEGATIVE); URINE KETONES (Dip) NEGATIVE (NEGATIVE); URINE LEUKOCYTE ESTERASE (Dip) 2+ (NEGATIVE); URINE NITRITE (Dip) NEGATIVE (NEGATIVE); URINE TOTAL PROTEIN (Dip) TRACE (NEGATIVE); URINE UROBILINOGEN (Dip) 0.2 E.U./dL (0.1-1.0)
[2016-09-15 15:41] LABS: PARTIAL THROMBOPLASTIN TIME 27.9 Sec (25.0-35.0)
[2016-09-15 15:42] LABS: ALANINE AMINOTRANSFERASE 36 IU/L (13-69); ALBUMIN 4.1 g/dl (3.3-4.9); ALBUMIN/GLOBULIN RATIO 1.64; ALKALINE PHOSPHATASE 77 IU/L (42-121); ANION GAP 11 (8-16); ASPARTATE AMINO TRANSFERASE 31 IU/L (15-46); BLOOD UREA NITROGEN 21 mg/dl (7-20); CALCIUM 8.8 mg/dl (8.4-10.2); CARBON DIOXIDE 24 mmol/L (21-31); CHLORIDE 109 mmol/L (97-110); CREATININE 1.27 mg/dl (0.44-1.00); GLUCOSE 119 mg/dl (70-220); POTASSIUM 3.4 mmol/L (3.5-5.1); SODIUM 141 mmol/L (135-144); TOTAL PROTEIN 6.6 g/dl (6.1-8.1)
--- NOTE | 2016-09-15 15:44 | QN ---
Documentation Comment Patient is a 65-year-old female who requires IV access. PICC line needs to be placed. The patient is altered and unable to give consent. There is no family available. Consent is implied since she is in the emergency department. This would be considered an urgent procedure. NICHOLAS CONNER MD Sep 15, 2016 15:44
[2016-09-15 15:47] LABS: BACTERIA,URINE MANY; URINE RBCS 0-2 /HPF (0)
--- NOTE | 2016-09-15 15:55 | RADRPT ---
PROCEDURE: XR Chest. CLINICAL INDICATION: Chest pain TECHNIQUE: Single frontal view of the chest was obtained COMPARISON: 08/15/2016 FINDINGS: The heart is enlarged. The thoracic aorta is calcified. There is a left-sided pacemaker in place. There is no focal infiltrate. There is no pleural effusion or pneumothorax. RPTAT: AA IMPRESSION: Mild cardiomegaly. Calcified aorta consistent with atherosclerotic disease. .Tj Higgins MD, MD Date Time Electronically viewed and signed by .Tj Higgins MD, MD on 09/15/2016 15:54 .S/
[2016-09-15 16:20] LABS: TROPONIN-I < 0.012 ng/ml (0.00-0.12)
[2016-09-15] MEDS ORDERED: ACETAMINOPHEN 325 MG TAB PO PRN (16:30)
[2016-09-15] MEDS ORDERED: ONDANSETRON 4 MG INJ IV PRN ×2 (16:30→18:00)
--- NOTE | 2016-09-15 17:19 | ERA ---
ER Documentation Chief Complaint Date/Time DATE: 09/15/16 TIME: 17:17 Chief Complaint weakness in the and had htn this am HPI Patient is a 65-year-old female with hypertension who presents saying "I could not wake up". Please note the history and physical exam is limited secondary to the patient's mental status at this time. The patient feels weak all over. The symptoms started today. She denies fever. Her oxygen level was 72-74% on room air but it is unclear if she is on home oxygen. She has slurred speech. Upon review of old medical records this is the patient's fourth visit to the ER since 2007. She does not know the name of her primary doctor. ROS All systems reviewed and are negative except as per history of present illness. Medications Home Meds Active Scripts Guaifenesin-Dextromethorphan* (Robitussin* DM) 100MG/10MG/5ML Syrup, 10 ML PO Q8H Y for COUGH, #100 ML Prov:CARLYN WOODSON MD 08/17/16 Hydralazine Hcl* (Hydralazine Hcl*) 10 Mg Tablet, 10 MG PO Q8, #90 TAB Prov:CARLYN WOODSON MD 08/17/16 Nitroglycerin* (Nitrostat*) 0.4 Mg Tab.subl, 1 TAB SL Q5M Y for ANGINA, #30 Prov:CARLYN WOODSON MD 08/17/16 Reported Medications Albuterol Sulfate* (Proair HFA*) 8.5 Gm Hfa.aer.ad, 2 PUFF INH Q4H Y for WHEEZING AND SOB, #1 INHALER 08/15/16 Baclofen* (Baclofen*) 10 Mg Tablet, 10 MG PO BID, TAB 08/15/16 Meloxicam* (Mobic*) 15 Mg Tablet, 15 MG PO DAILY, #30 TAB 08/15/16 Gabapentin* (Gabapentin*) 300 Mg Capsule, 300 MG PO BID, #60 CAP 08/15/16 Cholecalciferol (Vitamin D3) (VITAMIN D-3) 2,000 Unit Capsule, 2000 UNIT PO DAILY, CAP 08/15/16 Labetalol Hcl* (Labetalol Hcl*) 200 Mg Tablet, 200 MG PO DAILY, TAB 07/17/16 Docusate Calcium* (Stool Softener*) 240 Mg Capsule, 250 MG PO DAILY, CAP 07/17/16 Valsartan (Valsartan) 160 Mg Tablet, 160 MG PO BID, #60 TAB 07/17/16 Pyridostigmine [place]* (Pyridostigmine [place]*) 60 Mg Tablet, 60 MG PO BID, TAB 07/17/16 Tramadol HCl (Tramadol HCl) 50 Mg Tablet, 50 MG PO BID Y for PAIN, #120 TAB 07/17/16 Linaclotide (LINZESS) 290 Mcg Capsule, 290 MCG PO DAILY, #30 CAP 07/17/16 Zolpidem Tartrate* (Zolpidem Tartrate*) 10 Mg Tablet, 10 MG PO QHS Y for INSOMNIA, #30 TAB 07/17/16 Aspirin* (Aspirin* EC) 81 Mg Tablet.dr, 81 MG PO DAILY, TAB 07/17/16 Oxybutynin Chloride (Oxybutynin Chloride ER) 5 Mg Tab.er.24, 5 MG PO BID, TAB 07/17/16 Omeprazole* (Omeprazole*) 20 Mg Capsule.dr, 20 MG PO BID, #60 CAP 07/17/16 Duloxetine Hcl* (Duloxetine Hcl*) 60 Mg Capsule.dr, 60 MG PO DAILY, #30 CAP 07/17/16 Lamotrigine* (Lamotrigine*) 100 Mg Tablet, 100 MG PO DAILY, TAB 07/17/16 Allergies Allergies: Coded Allergies: No Known Allergy (Unverified , 09/15/16) PMhx/Soc History of Surgery: Yes (CABG, PACEMAKER) Anesthesia Reaction: No Hx Neurological Disorder: No Hx Respiratory Disorders: No Hx Cardiac Disorders: Yes (HTN) Hx Psychiatric Problems: No Hx Miscellaneous Medical Probl: No Hx Alcohol Use: No Hx Substance Use: No Hx Tobacco Use: Yes Smoking Status: Light tobacco smoker FmHx Unable to obtain Physical Exam Vitals Vital Signs Date Time Temp Pulse Resp B/P Pulse Ox O2 Delivery O2 Flow Rate FiO2 09/15/16 14:30 Nasal Cannula 3.0 09/15/16 14:30 Nasal Cannula 3 09/15/16 14:14 100.8 94 18 139/63 76 Physical Exam Const: Altered and confused Head: Atraumatic Eyes: Normal Conjunctiva ENT: Normal External Ears, Nose and Mouth. Neck: Full range of motion..~ No meningismus. Resp: Clear to auscultation bilaterally Cardio: Regular rate and rhythm, no murmurs Abd: Soft, non tender, non distended. Normal bowel sounds Skin: No petechiae or rashes Back: No midline or flank tenderness Ext: No cyanosis, or edema Neur: Awake but confused Result Diagram: 09/15/16 1450 09/15/16 1450 Results 24 hrs Laboratory Tests Test 09/15/16 14:50 09/15/16 15:08 White Blood Count 6.410^3/ul Red Blood Count 3.7610^6/ul Hemoglobin 9.4g/dl Hematocrit 30.7% Mean Corpuscular Volume 81.6fl Mean Corpuscular Hemoglobin 25.0pg Mean Corpuscular Hemoglobin Concent 30.6g/dl Red Cell Distribution Width 16.5% Platelet Count 96616^3/UL Mean Platelet Volume 10.1fl Neutrophils % 73.1% Lymphocytes % 16.7% Monocytes % 7.7% Eosinophils % 1.7% Basophils % 0.3% Nucleated Red Blood Cells % 0.0/100WBC Neutrophils # 4.610^3/ul Lymphocytes # 1.110^3/ul Monocytes # 0.510^3/ul Eosinophils # 0.110^3/ul Basophils # 0.010^3/ul Nucleated Red Blood Cells # 0.010^3/ul Prothrombin Time 13.8Sec Prothrombin Time Ratio 1.1 INR International Normalized Ratio 1.06 Activated Partial Thromboplast Time 27.9Sec Sodium Level 141mmol/L Potassium Level 3.4mmol/L Chloride Level 109mmol/L Carbon Dioxide Level 24mmol/L Anion Gap 11 Blood Urea Nitrogen 21mg/dl Creatinine 1.27mg/dl Glucose Level 119mg/dl Lactic Acid Level 0.9mmol/L Calcium Level 8.8mg/dl Total Bilirubin 0.0mg/dl Direct Bilirubin 0.00mg/dl Indirect Bilirubin 0.0mg/dl Aspartate Amino Transf (AST/SGOT) 31IU/L Alanine Aminotransferase (ALT/SGPT) 36IU/L Alkaline Phosphatase 77IU/L Troponin I < 0.012ng/ml Total Protein 6.6g/dl Albumin 4.1g/dl Globulin 2.50g/dl Albumin/Globulin Ratio 1.64 Urine Color LT. YELLOW Urine Clarity SLIGHTLY CLOUDY Urine pH 6.0 Urine Specific [place] 1.010 Urine Ketones NEGATIVE Urine Nitrite NEGATIVE Urine Bilirubin NEGATIVE Urine Urobilinogen 0.2 E.U./dL Urine Leukocyte Esterase 2+ Urine Microscopic RBC 0-2/HPF Urine Microscopic WBC 5-10/HPF Urine Epithelial Cells RARE Urine Bacteria MANY Urine Hemoglobin NEGATIVE Urine Glucose NEGATIVE% Urine Total Protein TRACE Current Medications Medications (Trade) Dose Ordered Sig/Gelacio Route PRN Reason Start Time Stop Time Status Last Admin Dose Admin Sodium Chloride (NS) 2,390 ml BOLUS OVER 2 HOURS STAT IV* 09/15/16 14:46 09/15/16 14:48 DC 09/15/16 15:36 Acetaminophen 650 mg 650 mg ONCE STAT RI 09/15/16 14:46 09/15/16 14:48 DC 09/15/16 15:36 Cefepime HCl 50 ml @ 100 mls/hr ONCE STAT IVPB 09/15/16 14:46 09/15/16 15:15 DC 09/15/16 15:37 Vancomycin HCl (Vancocin) 250 ml @ 125 mls/hr ONCE ONCE IVPB 09/15/16 15:00 09/15/16 16:59 DC 09/15/16 16:25 Lidocaine (Xylocaine 1% (Mpf)) 5 ml ONCE ONCE SC 09/15/16 15:30 09/15/16 15:31 DC Naloxone HCl (Narcan) 0.2 mg ONCE ONCE IV 09/15/16 15:30 09/15/16 15:31 DC 09/15/16 15:37 Ondansetron HCl (Zofran Inj) 4 mg BRIDGE ORDER PRN IV NAUSEA AND/OR VOMITING 09/15/16 16:30 09/16/16 16:29 Acetaminophen (Tylenol Tab) 650 mg ER BRIDGE PRN PO MILD PAIN/FEVER 09/15/16 16:30 09/16/16 16:29 Procedures/MDM EKG read by me: Rate/Rhythm: Regular rate and rhythm at a rate of 68 Intervals: Normal Impression: No evidence of ischemia or arrhythmia Admit MDM: Patient's infectious symptoms have not stabilized and the patient is at risk of rapid decompensation. The patient will be admitted for careful hydration, antibiotic therapy, and infectious source control. Severe Sepsis criteria: Infectious source: Cystitis End organ damage indicated by: Altered mental status Sepsis Management: Time of recognition of sepsis: Upon arrival Within 3 hours of recognition: Blood cultures x 2 before broad-spectrum antibiotics: Yes 30 ml/kg NS bolus Completed Initial lactate 0.9 Repeat lactate pending Time of recognition of septic shock: No septic shock Septic Shock Assessment: Any lactic acid > 4.0 No Persistent hypotension (SBP < 90 or 40 mmHg drop, MAP < 65) despite 30 mL/kg IV fluid bolus No Volume Re-assessment for Septic Shock (post 30 ml/kg bolus): No septic shock at this time Persistent Hypotension Treatment: Comfort care No Central line Not Required Vasopressor started Not required I considered further perfusion assessment with CVP measurement, SCVO2, bedside ultrasound volume assessment, passive leg raise, trial of further fluid bolus. And proceeded with 30 ml/kg fluid bolus of NSS, broad spectrum antibiotics, and admission. Accepting Care Team Current data and ongoing care discussed. Admitting Physician: Dr. Adler from the panel team Submarine Element Coordinator(s): None Outstanding Data: Culture results and repeat lactic acid Critical Care: Critical care time 35 minutes excluding all billable procedures Emergent fluid management while maintaining close respiratory support. Provision of immediate and broad-spectrum antibiotic therapy. Simultaneous assessment for possible sources in order to direct targeted therapy. Consideration for invasive and chemical support to prevent cardiopulmonary collapse. Departure Diagnosis: Primary Impression: Severe sepsis Additional Impressions: Acute weakness Altered mental status Qualified Code: R41.82 - Altered mental status, unspecified altered mental status type Cystitis Condition: NICHOLAS Sweet MD Sep 15, 2016 17:19
[2016-09-15] MEDS ORDERED: GLUCOSE GEL 15 GRAM TUBE PO PRN ×2 (18:00)
[2016-09-15] MEDS ORDERED: GLUCAGON 1 MG INJ IM PRN (18:00)
[2016-09-15] MEDS ORDERED: GLUCOSE GEL 15 GRAM TUBE BUCCAL PRN (18:00)
[2016-09-15] MEDS ORDERED: DEXTROSE 50% 50 ML SYRINGE IV PRN ×2 (18:00)
[2016-09-15] MEDS ORDERED: NACL 0.9% 3 ML SYG IV SCH (18:00)
[2016-09-15 18:15] LABS: BARBITURATES NEGATIVE (NEGATIVE); BENZODIAZEPINES POSITIVE (NEGATIVE); CANNABINOIDS NEGATIVE (NEGATIVE); COCAINE NEGATIVE (NEGATIVE); OPIATES POSITIVE (NEGATIVE)
--- NOTE | 2016-09-15 18:26 | HP ---
DATE OF ADMISSION: 09/15/2016 CHIEF COMPLAINT: Altered mental status. HISTORY OF PRESENT ILLNESS: The patient is a 65-year-old female with a history of hypertension, hea daches, diabetes on insulin, history of pacemaker placement, CVA, polysubstance abuse, myasthenic gr ramesh, nicotine dependency, depression, neuropathy, seizure disorder and osteoarthritis. The patient was recently hospitalized here in 08/2016. At that time, the patient presented with atypical chest pain secondary to costochondritis. The patient now presents with altered mental status. The patie nt is unable to provide any significant history and history is obtained by medical records. The pat felicity reportedly stated that she had hard time waking up in the ER. The patient is alert and orient ed at this time. PAST MEDICAL HISTORY: As per HPI. HOME MEDICATIONS: Please see medication reconciliation. ALLERGIES: NO KNOWN DRUG ALLERGIES. FAMILY HISTORY: Unable to provide at this time. SOCIAL HISTORY: She has a history of polysubstance abuse and she also is a smoker. No reports of a lcohol abuse in the past. REVIEW OF SYSTEMS: A 12-point review of systems could not be obtained secondary to patient's poor m entation. PHYSICAL EXAMINATION: VITAL SIGNS: Temperature is 100.8, pulse 74, respiratory rate is 18, BP is 139/63, saturation is no rmal on 3 liters. GENERAL: Altered, no acute distress. HEENT: Normocephalic, atraumatic. LUNGS: Clear to auscultation. CARDIOVASCULAR: Regular rate and rhythm. ABDOMEN: Nondistended, nontender, soft. EXTREMITIES: No clubbing, cyanosis, or edema. LABORATORY TESTS: White count is 6.4, hemoglobin 9.4, platelets 182. Chemistry within normal limit s except for a potassium of 3.4, creatinine 1.27. INR is 1.06. UA is within normal limits except f or a leukocyte esterase 2+, WBCs 5 to 10. DIAGNOSTICS: Chest x-ray shows mild cardiomegaly, atherosclerotic disease. ASSESSMENT AND PLAN: 1. Acute encephalopathy, likely secondary to sepsis, although we will check a U tox. The patient h as a history of polysubstance abuse, treated with Rocephin IV. We will follow up on urine culture. 2. Diabetes. Continue insulin. 3. History of pacemaker placement. 4. History of cerebrovascular accidents, myasthenia gravis. Continue home medications. 5. Depression. Continue home medications. 7. Seizure disorder. Continue Lamictal. 8. Prophylaxis: Sequential compression devices. Dictated By: ROSANNA FIELDS/REBECCA Conf#: [id number] DID#: [id number]
[2016-09-15] MEDS: CEFTRIAXONE 1 GM/50 ML (PMX) 50 ML IVPB SCH (20:17)
[2016-09-15] MEDS: INSULIN ASPART [NOVOLOG] 3 ML PEN SC SCH (21:00)
[2016-09-15 21:55] VITALS: TEMP 99
[2016-09-15] MEDS: D5W-0.45 NACL + KCL 20 MEQ 1,000 ML IV SCH (22:18)
[2016-09-16] VITALS (13 sets, daily range): BP systolic 135–165; BP diastolic 65–73; PULSE 67–88; RESP 20; Ht 157.5 cm; Wt 77.7 kg
[2016-09-16] MEDS: INSULIN ASPART [NOVOLOG] 3 ML PEN SC SCH ×4 (01:00→12:43)
[2016-09-16] MEDS: D5W-0.45 NACL + KCL 20 MEQ 1,000 ML IV SCH ×2 (07:03→13:48)
[2016-09-16] MEDS ORDERED: hydrALAzine 20 MG INJ IV PRN (07:30)
[2016-09-16 08:31] LABS: ADD SCAN DIFF NO
[2016-09-16 08:37] LABS: HEMATOCRIT 32.9 % (37.0-47.0); HEMOGLOBIN 10.2 g/dl (12.0-16.0); MEAN CORPUSCULAR HEMOGLOBIN 25.1 pg (29.0-33.0); PLATELET COUNT 179 10^3/UL (140-415); RED BLOOD COUNT 4.06 10^6/ul (4.20-5.40); RED CELL DISTRIBUTION WIDTH 15.7 % (11.5-14.5); WHITE BLOOD COUNT 6.7 10^3/ul (4.8-10.8)
[2016-09-16 08:59] LABS: CALCIUM 8.8 mg/dl (8.4-10.2); CREATININE 0.75 mg/dl (0.44-1.00); PHOSPHORUS 2.8 mg/dl (2.5-4.9); POTASSIUM 3.2 mmol/L (3.5-5.1)
[2016-09-16 11:46] LABS: LYMPHOCYTES # 1.8 10^3/ul (0.8-2.9); MONOCYTE # 0.4 10^3/ul (0.3-0.9); NEUTROPHIL # 3.6 10^3/ul (1.6-7.5)
[2016-09-16] MEDS ORDERED: POTASSIUM CHLORIDE (SR) 20 MEQ TAB PO STA (14:56)
[2016-09-16] MEDS ORDERED: KETOROLAC 30 MG INJ IV PRN (16:00)
[2016-09-16] MEDS ORDERED: INSULIN ASPART [NOVOLOG] 3 ML PEN SC SCH (17:35)
[2016-09-16] MEDS: Insulin NOVOLOG SS MILD Algorithm (SS with meals and bedtime) SC SCH ×2 (17:35→21:00)
--- NOTE | 2016-09-16 18:16 | PN ---
Date/Time of Note Date/Time of Note DATE: 09/16/16 TIME: 18:11 Assessment/Plan VTE Prophylaxis VTE Prophylaxis Intervention: SCD's Lines/Catheters IV Catheter Type (from Nrs): Peripheral IV Assessment/Plan Chief Complaint/Hosp Course 1. Acute metabolic toxic encephalopathy secondary to sepsis and/or polysubstance abuse U tox is positive for opioids and benzos Continue Rocephin Urine culture prelim shows gram-negative rods 2. Diabetes A1c of 5.7, continue NovoLog sliding scale 3. History of pacemaker placement. 4. History of myasthenia gravis Continue home medications 5. Depression Continue home medications. 7. Seizure disorder Continue Lamictal. Prophylaxis: Sequential compression devices Problems: Subjective 24 Hr Interval Summary Gastrointestinal: constipation Neurologic: headache Exam/Review of Systems Vital Signs Vitals Vital Signs Date Time Temp Pulse Resp B/P Pulse Ox O2 Delivery O2 Flow Rate FiO2 09/16/16 16:24 74 09/16/16 15:47 99.0 20 149/65 96 09/16/16 08:00 Nasal Cannula 2.0 Intake and Output 09/15/16 09/15/16 09/16/16 15:00 23:00 07:00 Intake Total 1300 ml Balance 1300 ml Exam Constitutional: alert Respiratory: clear to auscultation Cardiovascular: regular rate and rhythm Gastrointestinal: soft, No distended Musculoskeletal: nl extremities to inspection Results Result Diagram: 09/16/1618 09/16/16 0818 Results 24 hrs Laboratory Tests Test 09/15/16 18:35 09/15/16 20:49 09/15/16 22:06 09/16/16 01:44 Lactic Acid Level 0.6 0.7 Bedside Glucose 118 183 Test 09/16/16 06:17 09/16/16 07:56 09/16/16 08:18 09/16/16 12:39 Bedside Glucose 152 134 170 White Blood Count 6.7 Red Blood Count 4.06 L Hemoglobin 10.2 L Hematocrit 32.9 L Mean Corpuscular Volume 81.0 L Mean Corpuscular Hemoglobin 25.1 L Mean Corpuscular Hemoglobin Concent 31.0 L Red Cell Distribution Width 15.7 H Platelet Count 179 Mean Platelet Volume 10.0 Neutrophils % 54.0 Band Neutrophils % 13.0 H Lymphocytes % 27.0 Monocytes % 6.0 Eosinophils % Neutrophils # 3.6 Lymphocytes # 1.8 Monocytes # 0.4 Eosinophils # Sodium Level 144 Potassium Level 3.2 L Chloride Level 110 Carbon Dioxide Level 27 Anion Gap 10 Blood Urea Nitrogen 12 # Creatinine 0.75 Glucose Level 122 Hemoglobin A1c 5.7 Calcium Level 8.8 Phosphorus Level 2.8 Magnesium Level 2.0 Test 09/16/16 17:21 Bedside Glucose 108 Medications Medications Current Medications Ondansetron HCl 4 mg 4 mg Q6H PRN IV NAUSEA AND/OR VOMITING; Start 09/15/16 at 18:00 Ceftriaxone Sodium (Rocephin) 50 ml @ 100 mls/hr Q24H IVPB Last administered on 09/15/16 20:17; Admin Dose 100 MLS/HR; Start 09/15/16 at 18:00 Miscellaneous Information 1 ea NOTE XX ; Start 09/15/16 at 18:00 Glucose (Glutose) 15 gm Q15M PRN PO DECREASED GLUCOSE; Start 09/15/16 at 18:00 Glucose (Glutose) 22.5 gm Q15M PRN PO DECREASED GLUCOSE; Start 09/15/16 at 18:00 Dextrose (D50w Syringe) 25 ml Q15M PRN IV DECREASED GLUCOSE; Start 09/15/16 at 18:00 Dextrose (D50w Syringe) 50 ml Q15M PRN IV DECREASED GLUCOSE; Start 09/15/16 at 18:00 Glucagon (Glucagen) 1 mg Q15M PRN IM DECREASED GLUCOSE; Start 09/15/16 at 18:00 Glucose (Glutose) 15 gm Q15M PRN BUCCAL DECREASED GLUCOSE; Start 09/15/16 at 18: 00 Hydralazine HCl (Apresoline) 10 mg Q6H PRN IV ELEVATED BLOOD PRESSURE Last administered on 09/16/16 07:57; Admin Dose 10 MG; Start 09/16/16 at 07:30 Acetaminophen (Tylenol Tab) 650 mg Q6H PRN PO PAIN AND OR ELEVATED TEMP; Start 09/16/16 at 10:30 Diagnostic Test (Pha) (Accu-Chek) 1 ea 02 XX ; Start 09/17/16 at 02:00 Ketorolac Tromethamine (Toradol) 30 mg Q6H PRN IV PAIN Last administered on 15:53; Admin Dose 30 MG; Start 09/16/16 at 16:00; Stop 09/19/16 at 15:59 ROSANNA [place] Sep 16, 2016 18:16
[2016-09-16] MEDS ORDERED: BISACODYL (EC) 5 MG TAB PO PRN (18:30)
[2016-09-16] MEDS ORDERED: BISACODYL (EC) 5 MG TAB PO ONE (18:30)
[2016-09-16] MEDS: CEFTRIAXONE 1 GM/50 ML (PMX) 50 ML IVPB SCH (18:31)
[2016-09-16] MEDS: ACETAMINOPHEN 325 MG TAB PO PRN (19:16)
[2016-09-16] MEDS: PYRIDOSTIGMINE 60 MG TAB PO SCH (20:29)
[2016-09-16] MEDS: DOCUSATE SODIUM 100 MG CAP PO SCH (20:29)
[2016-09-16] MEDS: SENNA TAB PO SCH (20:29)
[2016-09-16] MEDS: VALSARTAN 160 MG TAB PO SCH (20:32)
[2016-09-16] MEDS: OXYBUTYNIN (XL) 5 MG TAB PO SCH (20:34)
[2016-09-17] VITALS (9 sets, daily range): BP systolic 141–168; BP diastolic 70–74; PULSE 60–68; RESP 18–21
[2016-09-17] MEDS ORDERED: ACETYLCYSTEINE 20% 4 ML VIAL NEB ONE
[2016-09-17] MEDS: ACETAMINOPHEN 325 MG TAB PO PRN (00:25)
[2016-09-17] MEDS: ALBUTEROL/IPRATROPIUM (NEB) 3 ML AMP HHN SCH ×4 (00:53→13:59)
[2016-09-17] MEDS ORDERED: ACCUCHECK AT 2AM (Patients on SS coverage) XX SCH (02:00)
[2016-09-17] MEDS: Insulin NOVOLOG SS MILD Algorithm (SS with meals and bedtime) SC SCH ×2 (07:30→11:30)
[2016-09-17] MEDS: PYRIDOSTIGMINE 60 MG TAB PO SCH (08:37)
[2016-09-17] MEDS: OXYBUTYNIN (XL) 5 MG TAB PO SCH (08:37)
[2016-09-17] MEDS: DOCUSATE SODIUM 100 MG CAP PO SCH (08:37)
[2016-09-17] MEDS: SENNA TAB PO SCH (08:37)
[2016-09-17] MEDS: VALSARTAN 160 MG TAB PO SCH (08:37)
[2016-09-17] MEDS ORDERED: LAMOTRIGINE 100 MG TAB PO SCH (09:00)
[2016-09-17] MEDS ORDERED: DULOXETINE 30 MG CAP DR PO SCH (09:00)
[2016-09-17] MEDS ORDERED: ASPIRIN (EC) 81 MG TAB PO SCH (09:00)
[2016-09-17] MEDS ORDERED: LABETALOL 200 MG TAB PO SCH (09:00)
[2016-09-17] MEDS ORDERED: CIPR500T4 PO (10:03)
[2016-09-17 11:41] LABS: ADD SCAN DIFF NO
[2016-09-17 11:43] LABS: BASOPHILS % 0.2 % (0.0-2.0); EOSINOPHILS # 0.1 10^3/ul (0.0-0.5); EOSINOPHILS % 2.9 % (0.0-7.0); HEMATOCRIT 30.3 % (37.0-47.0); HEMOGLOBIN 9.6 g/dl (12.0-16.0); LYMPHOCYTES # 0.9 10^3/ul (0.8-2.9); LYMPHOCYTES % 17.6 % (15.0-51.0); MEAN CORPUSCULAR HEMOGLOBIN 25.4 pg (29.0-33.0); MEAN CORPUSCULAR HGB CONC 31.7 g/dl (32.0-37.0); MEAN CORPUSCULAR VOLUME 80.2 fl (82.0-101.0); MEAN PLATELET VOLUME 10.9 fl (7.4-10.4); MONOCYTE # 0.4 10^3/ul (0.3-0.9); MONOCYTES % 8.5 % (0.0-11.0); NEUTROPHIL # 3.4 10^3/ul (1.6-7.5); NEUTROPHILS % 70.4 % (39.0-77.0); PLATELET COUNT 202 10^3/UL (140-415); RED BLOOD COUNT 3.78 10^6/ul (4.20-5.40); WHITE BLOOD COUNT 4.8 10^3/ul (4.8-10.8)
[2016-09-17 12:03] LABS: CALCIUM 9.4 mg/dl (8.4-10.2); CREATININE 0.76 mg/dl (0.44-1.00)
--- NOTE | 2016-09-17 15:33 | DS ---
DATE OF ADMISSION: 09/15/2016 DATE OF DISCHARGE: 09/17/2016 DISCHARGE DIAGNOSES: 1. Acute metabolic and toxic encephalopathy secondary to sepsis and/or polysubstance abuse. The seth cervantes's U-tox is positive for opiates and benzos. The patient did have a UTI diagnosed during hospi talization and mentation is now improved. Discontinue p.o. antibiotics. 2. History of diabetes. The patient's A1c is 5.7. The patient does not have any reported diabetic medications. 3. History of pacemaker placement. 4. History myasthenic gravis. Continue home medications. 5. Depression. Continue home medications. 6. Seizure disorder. Continue Lamictal. 7. Urinary discharge with p.o. antibiotics. HOSPITAL COURSE: The patient is a 65-year-old female with a history of hypertension, headaches. Hi story of pacemaker placement, polysubstance abuse, myasthenia gravis, nicotine dependency, depressio n, seizure disorder and osteoarthritis. The patient presents with acute encephalopathy. She was fo und to have a urinary tract infection with urine culture showing Klebsiella pneumoniae. The patient 's chest x-ray showed no acute findings. The patient's U-tox was positive for opioids and benzos. It was felt that her acute encephalopathy was likely secondary to combination of both a metabolic to xic encephalopathy from polysubstance abuse as well as her UTI. The patient's mentation did improve when she was treated for the UTI and her medications were held. The patient was felt to be stable for discharge. She was advised that she needs to take less of her pain medications. She stated sherwin t she understood. The patient does reside in a board and care facility. On the day of discharge, manohar lantigua's vitals, labs, physical exam were stable. She had no acute complaints and questions answere d. CONDITION ON DISCHARGE: Stable. DISPOSITION: To board and [facility] facility. MEDICATIONS: The patient is to continue her usual home medications. Patient was given a prescripti on for Cipro 500 mg p.o. b.i.d. for 3 days. FOLLOWUP: She should follow up with her PCP in 1 to 2 weeks. Greater than 30 minutes was spent coordinating discharge of patient. Dictated By: ROSANNA FIELDS/REBECCA Conf#: [id number] DID#: [id number]
== END 2016-09-17 14:33 | disposition home or self-care (01) | DRG 871 ==
LOC: E/R 14:09 → MS4 16:11
PROVIDERS: ADMIT Internal Medicine; ATTEND Internal Medicine
DX: A41.9 Sepsis, unspecified organism (principal); G92 Toxic encephalopathy; N39.0 Urinary tract infection, site not specified; R65.20 Severe sepsis without septic shock; G70.00 Myasthenia gravis without (acute) exacerbation; G40.909 Epilepsy, unspecified, not intractable, without status epilepticus; B96.1 Klebsiella pneumoniae [K. pneumoniae] as the cause of diseases classified elsewhere; F11.10 Opioid abuse, uncomplicated; F32.9 Major depressive disorder, single episode, unspecified; E11.9 Type 2 diabetes mellitus without complications; F17.200 Nicotine dependence, unspecified, uncomplicated; M19.90 Unspecified osteoarthritis, unspecified site; Z16.39 Resistance to other specified antimicrobial drug; Z95.1 Presence of aortocoronary bypass graft; Z95.0 Presence of cardiac pacemaker
CPT/HCPCS: 36415; 71010; 80048; 80053; 80307; 81001; 82962; 83036; 83605; 83735; 84100; 84484; 85025; 85610; 85730; 87040; 87086; 93005; 94640; 94664; 96365; 96366; 96367; 96375; J0360; J0692; J0696; J1815; J1885; J2310; J3370; J3480; J7030

== ENCOUNTER 2017-02-05 11:43 | Emergency (ER) | payer MEDICARE, OTHER ==
[~2017-02-05] VITALS: Ht 170.2 cm; Wt 72.5 kg
[~2017-02-05 11:43] MED LIST changes: -CHOL20003 PO; +CHOL200073 PO; +CIPR500T4 PO; -MELO-110 PO; +MELO-210 PO
[2017-02-05 11:52] VITALS: Ht 170.2 cm; Wt 72.5 kg
[2017-02-05] MEDS ORDERED: KETOROLAC 30 MG INJ IM STA (13:03)
[2017-02-05] MEDS ORDERED: HYDROCODONE/APAP (5/325) TAB PO ONE (13:30)
--- NOTE | 2017-02-05 14:32 | RADRPT ---
PROCEDURE: Left wrist series CLINICAL INDICATION: Left wrist pain. Fall TECHNIQUE: AP, oblique, and lateral views of the left wrist were obtained. COMPARISON: None FINDINGS: Diffuse osteopenia is seen. A comminuted fracture of the distal radius is seen with displacement fr acture fragments. Slightly displaced fracture of the ulnar styloid process is seen. Soft tissue swel ling at the fracture sites is seen. No other fracture is seen. No dislocation is seen. The articula r surfaces are normal. No other soft tissue abnormalities are seen. IMPRESSION: Comminuted distal radial fracture with a slightly displaced ulnar styloid process fracture. RPTAT: HPNM Physician Tiera Date Time Electronically viewed and signed by Physician Tiera on 02/05/2017 14:31 /
--- NOTE | 2017-02-05 14:34 | RADRPT ---
PROCEDURE: XR L-Spine. CLINICAL INDICATION: Low back pain. Trauma TECHNIQUE: AP, lateral, and cone down views of the lumbar spine were obtained. COMPARISON: None FINDINGS: Diffuse osteopenia is seen. The lumbar lordosis is straightened. Mild height loss of the superior en dplate of L2 is seen. The remaining vertebral body heights are normal. Moderate disc height loss is seen at L5-S1 with osteophytosis. In addition, endplate sclerosis at L5-S1 is seen. No acute fractur e or subluxation is seen. No paravertebral soft tissue abnormality is seen. IMPRESSION: 1. Mild compression fracture of L2 vertebral body. 2. Mild to moderate discogenic disease at L5-S1. RPTAT: HPNM Physician Tiera Date Time Electronically viewed and signed by Physician Tiera on 02/05/2017 14:33 /
[2017-02-05] MEDS ORDERED: IBUP-1542 PO (14:52)
[2017-02-05] MEDS ORDERED: HYDR-906 PO (14:52)
--- NOTE | 2017-02-05 14:59 | ERD ---
ER Documentation Chief Complaint Chief Complaint FALL 3 DAYS AGO WITH PAIN IN LT WRIST AND LOWER BACK NOW. HPI 66-year-old female presents complaining of a fall 3 days ago. She tripped over uneven concrete. She has left wrist pain and low back pain. She denies any head injury, neck pain, weakness, bleeding or lacerations. Denies any bowel or bladder incontinence. She denies any numbness. ROS All systems reviewed and are negative except as per history of present illness. Medications Home Meds Active Scripts Ibuprofen* (Motrin*) 600 Mg Tab, 600 MG PO Q6, #15 TAB Prov:RANJITH ZARCO MD 02/05/17 Hydrocodone/Acetaminophen ([place] 5-325 Tablet) 1 Each Tablet, 1 TAB PO Q6H Y for PAIN, #7 TAB Prov:RANJITH ZARCO MD 02/05/17 Ciprofloxacin Hcl* (Ciprofloxacin Hcl*) 500 Mg Tablet, 500 MG PO BID for 3 Days , TAB Prov:ROSANNA BIRMINGHAM 09/17/16 Guaifenesin-Dextromethorphan* (Robitussin* DM) 100MG/10MG/5ML Syrup, 10 ML PO Q8H Y for COUGH, #100 ML Prov:CARLYN WOODSON MD 08/17/16 Hydralazine Hcl* (Hydralazine Hcl*) 10 Mg Tablet, 10 MG PO Q8, #90 TAB Prov:CARLYN WOODSON MD 08/17/16 Nitroglycerin* (Nitrostat*) 0.4 Mg Tab.subl, 1 TAB SL Q5M Y for ANGINA, #30 Prov:CARLYN WOODSON MD 08/17/16 Reported Medications Albuterol Sulfate* (Proair HFA*) 8.5 Gm Hfa.aer.ad, 2 PUFF INH Q4H Y for WHEEZING AND SOB, #1 INHALER 08/15/16 Baclofen* (Baclofen*) 10 Mg Tablet, 10 MG PO BID, TAB 08/15/16 Meloxicam* (Mobic*) 15 Mg Tablet, 15 MG PO DAILY, #30 TAB 08/15/16 Gabapentin* (Gabapentin*) 300 Mg Capsule, 300 MG PO BID, #60 CAP 08/15/16 Cholecalciferol (Vitamin D3) (VITAMIN D-3) 2,000 Unit Capsule, 2000 UNIT PO DAILY, CAP 08/15/16 Labetalol Hcl* (Labetalol Hcl*) 200 Mg Tablet, 200 MG PO DAILY, TAB 07/17/16 Docusate Calcium* (Stool Softener*) 240 Mg Capsule, 250 MG PO DAILY, CAP 07/17/16 Valsartan (Valsartan) 160 Mg Tablet, 160 MG PO BID, #60 TAB 07/17/16 Pyridostigmine [place]* (Pyridostigmine [place]*) 60 Mg Tablet, 60 MG PO BID, TAB 07/17/16 Tramadol HCl (Tramadol HCl) 50 Mg Tablet, 50 MG PO BID Y for PAIN, #120 TAB 07/17/16 Linaclotide (LINZESS) 290 Mcg Capsule, 290 MCG PO DAILY, #30 CAP 07/17/16 Zolpidem Tartrate* (Zolpidem Tartrate*) 10 Mg Tablet, 10 MG PO QHS Y for INSOMNIA, #30 TAB 07/17/16 Aspirin* (Aspirin* EC) 81 Mg Tablet.dr, 81 MG PO DAILY, TAB 07/17/16 Oxybutynin Chloride (Oxybutynin Chloride ER) 5 Mg Tab.er.24, 5 MG PO BID, TAB 07/17/16 Omeprazole* (Omeprazole*) 20 Mg Capsule.dr, 20 MG PO BID, #60 CAP 07/17/16 Duloxetine Hcl* (Duloxetine Hcl*) 60 Mg Capsule.dr, 60 MG PO DAILY, #30 CAP 07/17/16 Lamotrigine* (Lamotrigine*) 100 Mg Tablet, 100 MG PO DAILY, TAB 07/17/16 Allergies Allergies: Coded Allergies: No Known Allergy (Unverified , 09/15/16) PMhx/Soc History of Surgery: Yes (CABG, PACEMAKER) Anesthesia Reaction: No Hx Neurological Disorder: No Hx Respiratory Disorders: No Hx Cardiac Disorders: Yes (HTN. CAD ) Hx Psychiatric Problems: No Hx Miscellaneous Medical Probl: Yes (DM, GERD) Hx Alcohol Use: No Hx Substance Use: No Hx Tobacco Use: Yes Smoking Status: Current every day smoker Physical Exam Vitals Vital Signs Date Time Temp Pulse Resp B/P Pulse Ox O2 Delivery O2 Flow Rate FiO2 02/05/17 11:52 97.0 60 18 124/60 95 Physical Exam Const: [] Alert, not ill-appearing. Head: Atraumatic Eyes: Normal Conjunctiva ENT: Normal External Ears, Nose and Mouth. Neck: Full range of motion..~ No meningismus. Resp: Clear to auscultation bilaterally Cardio: Regular rate and rhythm, no murmurs Abd: Soft, non tender, non distended. Normal bowel sounds Skin: No petechiae or rashes Back: No midline or flank tenderness. Tenderness primarily left L2-L3 area. There is no midline tenderness appreciated. Ext: No cyanosis, or edema tenderness and swelling and minimal deformity of the left distal radius area. Patient has no visual deficits, signs of ischemia. Neur: Awake and alert Psych: Normal Mood and Affect Results 24 hrs Current Medications Medications (Trade) Dose Ordered Sig/Gelacio Route PRN Reason Start Time Stop Time Status Last Admin Dose Admin Acetaminophen/ Hydrocodone Bitart ([place] (5/325)) 1 tab ONCE ONCE PO 02/05/17 13:30 02/05/17 13:31 DC 02/05/17 13:28 Ketorolac Tromethamine (Toradol) 30 mg ONCE STAT IM 02/05/17 13:03 02/05/17 13:06 DC 02/05/17 13:29 Procedures/MDM X-ray Wrist 3V Interpreted by me: Scaphoid: [Normal] Bones: Comminuted fracture left distal radius and nondisplaced ulnar styloid fracture. Joints: [No dislocation] Foreign body: [None] patient-distal radius comminuted fracture and ulnar styloid fracture. X-ray LS-Spine 3V Interpreted by me: Bones: Compression fracture of L1. Joints: [No dislocation] Foreign body: [None] patient-mild compression fracture of L1 with generator changes. Patient is placed in a left short arm splint and was neurovascular intact after splint as well as a left arm sling. Is no appreciable tenderness in the area of noted compression fracture lumbar spine x-ray. Patient likely has lumbosacral strain in addition to her comminuted left distal radius fracture. There is no evidence of deficits or ischemia or infection. Patient was discharged home in a splint with instructions for orthopedic follow- up. She was given a short course of [place] and ibuprofen and return precautions. Departure Diagnosis: Primary Impression: Low back sprain Encounter type: initial encounter Qualified Code: S33.9XXA - Sprain of low back, initial encounter Additional Impression: Wrist fracture, left Encounter type: initial encounter Fracture type: closed Qualified Code: S62.102A - Closed fracture of left wrist, initial encounter Condition: Stable Patient Instructions: Back Sprain/Strain, Fracture, Wrist [General] Referrals: CONCHA WARREN MD, [place] SOO MD Additional Instructions: With orthopedist for further evaluation within the next week. Recheck otherwise for new or worsening symptoms have not fevers, redness, new symptoms. RANJITH ZARCO MD Feb 05, 2017 14:59
== END 2017-02-05 15:05 | disposition home or self-care (01) ==
LOC: FTE 11:43
DX: S62.102A Fracture of unspecified carpal bone, left wrist, initial encounter for closed fracture (principal); S33.9XXA Sprain of unspecified parts of lumbar spine and pelvis, initial encounter; I10 Essential (primary) hypertension; E11.9 Type 2 diabetes mellitus without complications; I25.10 Atherosclerotic heart disease of native coronary artery without angina pectoris; F17.210 Nicotine dependence, cigarettes, uncomplicated; W01.0XXA Fall on same level from slipping, tripping and stumbling without subsequent striking against object, initial encounter; Y92.9 Unspecified place or not applicable; Z79.82 Long term (current) use of aspirin; Z95.0 Presence of cardiac pacemaker; Z95.1 Presence of aortocoronary bypass graft
CPT/HCPCS: 29125; 72100; 73110; 96372; 99284; J1885

== ENCOUNTER 2017-02-08 14:32 | Inpatient (IN) | payer OTHER ==
[~2017-02-08] VITALS: Ht 167.6 cm; Wt 72.3 kg
[~2017-02-08 14:32] MED LIST changes: +HYDR-906 PO; +IBUP-1542 PO
[2017-02-08] MEDS ORDERED: SOD CHLORIDE 0.9% 1,000 ML IV STA (14:38)
--- NOTE | 2017-02-08 15:12 | RADRPT ---
PROCEDURE: XR Chest 1 view. CLINICAL INDICATION: Abnormal breath sounds, preop. TECHNIQUE: AP views of the chest were obtained. COMPARISON: DR LOWE 09/15/2016 FINDINGS: The heart is large. Calcified atherosclerosis is noted in the aorta. Median sternotomy wires overli e the heart. Left-sided dual chamber pacemaker has its leads over the heart and appears stable. The lungs are hyperexpanded. Chronic mild interstitial prominence is seen in both lungs. No consolidatio ns are identified. No pneumothorax is seen. Osseous structures are intact. IMPRESSION: Cardiomegaly with calcified atherosclerosis in the aorta. Hyperexpanded lungs with chronic mild interstitial prominence in both lungs. Findings could reflect COPD. RPTAT: AA .Jay Monk MD, MD Date Time Electronically viewed and signed by .Jay Monk MD, on 02/08/2017 15:12 .P/
[2017-02-08] MEDS ORDERED: METF500T4 PO (17:38)
[2017-02-08] MEDS ORDERED: DOCU250C58 PO (17:39)
[2017-02-08] MEDS ORDERED: PYRI60TA9 PO (17:41)
[2017-02-08] MEDS ORDERED: LORA1TAB PO (17:42)
[2017-02-08] MEDS ORDERED: TRAZ50TA18 PO (17:44)
[2017-02-08] MEDS ORDERED: NOVO3I SC (17:45)
[2017-02-08] MEDS ORDERED: MEMA10TA16 PO (17:46)
[2017-02-08] MEDS ORDERED: LINA145C PO (17:47)
[2017-02-08] MEDS ORDERED: CLON-379 PO (17:49)
[2017-02-08] MEDS ORDERED: CLON1PAT3 TD (17:50)
[2017-02-08] MEDS ORDERED: VALS160T20 PO (17:51)
[2017-02-08] MEDS ORDERED: DILT30TA30 PO (17:53)
[2017-02-08] MEDS ORDERED: INSU100I27 SQ (17:54)
[2017-02-08] MEDS ORDERED: ATOR20TA38 PO (17:55)
[2017-02-08] MEDS ORDERED: POTASSIUM CHLORIDE (SR) 20 MEQ TAB PO STA (18:10)
--- NOTE | 2017-02-08 18:10 | HP ---
Date/Time of Note Date/Time of Note DATE: 02/08/17 TIME: 18:06 Assessment/Plan VTE Prophylaxis VTE Prophylaxis Intervention: SCD's Lines/Catheters IV Catheter Type (from Nrsg): Saline Lock Assessment/Plan Assessment/Plan 66 yo F with pmhx CAD sp CABG and PM placement, DM2 not in insulin, chronic pain , ?bipolar d/o? admitted for surgical repair of R wrist fracture #R wrist fracture: surgery planned Orthopedic surgery pose intermediate cardiovascular risk. Pt uncertain if she can complete 4 METS of activity. Pt with known h/o CAD but is not on any nitrates, no recent + stress test. TTE within past 6 mos without evidence of CHF ,, though she was DM 2 she is not on insulin and her Cr is <2. Neuroimaging indicates a prior CVA. Therefore her Revised Cardiac Risk Index is one, per ACC/AHA guidelines, consideration of further cardiovascular evaluation is not unreasonable -cardiology consult -cont beta tracey #microcytic anemia -check iron studies, TSH #HTN, h/o CAD, chronic pain: cont home meds CHARGE DIAGNOSES: 1. Acute metabolic and toxic encephalopathy secondary to sepsis and/or polysubstance abuse. The patient's U-tox is positive for opiates and benzos. The patient did have a UTI diagnosed during hospitalization and mentation is now improved. Discontinue p.o. antibiotics. 2. History of diabetes. The patient's A1c is 5.7. The patient does not have any reported diabetic medications. 3. History of pacemaker placement. 4. History myasthenic gravis. Continue home medications. 5. Depression. Continue home medications. 6. Seizure disorder. Continue Lamictal. 7. Urinary discharge with p.o. antibiotics. HPI/ROS Admit Date/Time Admit Date/Time Hx of Present Illness 66 yo F with pmhx diabetes not on insulin, CAD sp CABG and PM placement, HTN presents referred to ER from ortho clinic for planned R wrist surgery for broken bone. Pt reports a mechanical fall a few days ago. Per ortho, will need general anesthesia. Pt denies any hx of CHF, CVA, CKD. Pt states she cannot climb a flight of stairs 2/2 chronic leg pain 10 p ROS as per HPI Pmhx: ?bipolar disorder?, myasthenia, HTN, chronic pain, CAD PMH/Family/Social Social History lives in the community Smoking Status: Current every day smoker Exam/Review of Systems Vital Signs Vitals Vital Signs Date Time Temp Pulse Resp B/P Pulse Ox O2 Delivery O2 Flow Rate FiO2 02/08/17 17:00 98.1 58 18 139/76 96 Room Air Exam Exam slightly disheveled EOMI MMM no mrg lungs clear abd soft no rashes no edema Cr noted, hgb a little low Labs Result Diagram: 02/08/17 1520 02/08/17 1520 LITA HUNTER MD Feb 08, 2017 18:10
--- NOTE | 2017-02-08 18:14 | ERD ---
ER Documentation Chief Complaint Chief Complaint lt wrist injury on sunday , sent by pmd for ortho eval HPI This 66-year-old female sent in by Dr. Quintero, orthopedist for admission because she will need general anesthesia for fracture reduction. Would like a preop workup performed does not require any imaging. She herself feels well and does have some wrist pain. Pain is much better than it was when she had the fracture. ROS All systems reviewed and are negative except as per history of present illness. Medications Home Meds Active Scripts Ibuprofen* (Motrin*) 600 Mg Tab, 600 MG PO Q6, #15 TAB Prov:RANJITH ZARCO MD 02/05/17 Hydrocodone/Acetaminophen ([place] 5-325 Tablet) 1 Each Tablet, 1 TAB PO Q6H Y for PAIN, #7 TAB Prov:RANJITH ZARCO MD 02/05/17 Ciprofloxacin Hcl* (Ciprofloxacin Hcl*) 500 Mg Tablet, 500 MG PO BID for 3 Days , TAB Prov:ROSANNA BIRMINGHAM 09/17/16 Reported Medications Atorvastatin Calcium* (Atorvastatin Calcium*) 20 Mg Tablet, 20 MG PO QHS, #30 TAB 02/08/17 Insulin Detemir (Levemir Flextouch) 100 Unit/1 Ml Insuln.pen, 24 UNIT SQ QPM 02/08/17 Diltiazem Hcl* (Cardizem*) 30 Mg Tablet, 30 MG PO DAILY, #60 TAB 02/08/17 Valsartan* (Diovan*) 160 Mg Tablet, 160 MG PO BID, TAB HOLD IF BP<100 02/08/17 Clonidine Patch (CLONIDINE PATCH) 0.3 Mg/24 Hr Patch, 1 PATCH.WK TD Q7D, #4 PATCH.WK 02/08/17 Clonidine Hcl* (Clonidine Hcl*) 0.1 Mg Tab, 0.1 MG PO DAILY, TAB 02/08/17 Linaclotide (LINZESS) 145 Mcg Capsule, 145 MCG PO DAILY, #30 CAP 02/08/17 Memantine* (Namenda*) 10 Mg Tablet, 10 MG PO DAILY, #30 TAB 02/08/17 Insulin Aspart* (Novolog Insulin Pen*) 100 Unit/Ml Soln, 0 SC .SLIDING SCALE AC , EA TAKE DIRECTED PER SLIDING SCALE 02/08/17 Trazodone Hcl* (Trazodone Hcl*) 50 Mg Tablet, 50 MG PO QHS, #30 TAB 02/08/17 Lorazepam* (Lorazepam*) 1 Mg Tablet, 1 MG PO Q6 Y for ANXIETY, #60 TAB 02/08/17 Pyridostigmine [place]* (Pyridostigmine [place]*) 60 Mg Tablet, 60 MG PO BID, TAB 02/08/17 Docusate Sodium* (Colace*) 250 Mg Capsule, 250 MG PO DAILY, #30 CAP 02/08/17 Metformin Hcl* (Metformin Hcl*) 500 Mg Tablet, 500 MG PO WITH BREAKFAST DINNE, # 60 TAB 02/08/17 Albuterol Sulfate* (Proair HFA*) 8.5 Gm Hfa.aer.ad, 2 PUFF INH Q4H Y for WHEEZING AND SOB, #1 INHALER 08/15/16 Baclofen* (Baclofen*) 10 Mg Tablet, 10 MG PO BID, TAB 08/15/16 Meloxicam* (Mobic*) 15 Mg Tablet, 15 MG PO DAILY, #30 TAB 08/15/16 Gabapentin* (Gabapentin*) 300 Mg Capsule, 600 MG PO TID, #60 CAP 08/15/16 Cholecalciferol (Vitamin D3) (VITAMIN D-3) 2,000 Unit Capsule, 2000 UNIT PO DAILY, CAP 08/15/16 Labetalol Hcl* (Labetalol Hcl*) 200 Mg Tablet, 200 MG PO DAILY, TAB 07/17/16 Tramadol HCl (Tramadol HCl) 50 Mg Tablet, 50 MG PO BID Y for PAIN, #120 TAB 07/17/16 Aspirin* (Aspirin* EC) 81 Mg Tablet.dr, 81 MG PO DAILY, TAB 07/17/16 Oxybutynin Chloride (Oxybutynin Chloride ER) 5 Mg Tab.er.24, 5 MG PO BID, TAB 07/17/16 Duloxetine Hcl* (Duloxetine Hcl*) 60 Mg Capsule.dr, 60 MG PO DAILY, #30 CAP 07/17/16 Lamotrigine* (Lamotrigine*) 100 Mg Tablet, 100 MG PO DAILY, TAB 07/17/16 Discontinued Reported Medications Docusate Calcium* (Stool Softener*) 240 Mg Capsule, 250 MG PO DAILY, CAP 07/17/16 Valsartan (Valsartan) 160 Mg Tablet, 160 MG PO BID, #60 TAB 07/17/16 Pyridostigmine [place]* (Pyridostigmine [place]*) 60 Mg Tablet, 60 MG PO BID, TAB 07/17/16 Linaclotide (LINZESS) 290 Mcg Capsule, 290 MCG PO DAILY, #30 CAP 07/17/16 Zolpidem Tartrate* (Zolpidem Tartrate*) 10 Mg Tablet, 10 MG PO QHS Y for INSOMNIA, #30 TAB 07/17/16 Omeprazole* (Omeprazole*) 20 Mg Capsule.dr, 20 MG PO BID, #60 CAP 07/17/16 Discontinued Scripts Guaifenesin-Dextromethorphan* (Robitussin* DM) 100MG/10MG/5ML Syrup, 10 ML PO Q8H Y for COUGH, #100 ML Prov:CARLYN WOODSON MD 08/17/16 Hydralazine Hcl* (Hydralazine Hcl*) 10 Mg Tablet, 10 MG PO Q8, #90 TAB Prov:CARLYN WOODSON MD 08/17/16 Nitroglycerin* (Nitrostat*) 0.4 Mg Tab.subl, 1 TAB SL Q5M Y for ANGINA, #30 Prov:CARLYN WOODSON MD 08/17/16 Allergies Allergies: Coded Allergies: No Known Allergy (Unverified , 02/08/17) PMhx/Soc History of Surgery: Yes (CABG, PACEMAKER) Anesthesia Reaction: No Hx Neurological Disorder: No Hx Respiratory Disorders: No Hx Cardiac Disorders: Yes (HTN. CAD ) Hx Psychiatric Problems: No Hx Miscellaneous Medical Probl: Yes (DM, GERD, Comminuted distal radial fracture w/ displaced ulnar styloid proc) Hx Alcohol Use: No Hx Substance Use: No Hx Tobacco Use: Yes (2pack/day) Smoking Status: Current every day smoker Physical Exam Vitals Vital Signs Date Time Temp Pulse Resp B/P Pulse Ox O2 Delivery O2 Flow Rate FiO2 02/08/17 17:00 98.1 58 18 139/76 96 Room Air 02/08/17 14:38 98.1 62 18 142/92 98 Physical Exam Const: [] No distess Head: Atraumatic Eyes: Normal Conjunctiva ENT: Normal External Ears, Nose and Mouth. Neck: Full range of motion.. Resp: Clear to auscultation bilaterally Cardio: Regular rate and rhythm, no murmurs Skin: No petechiae or rashes Ext: No cyanosis, or edema, capillary refill intact bilateral extremities, left wrist with splint placed by Dr. Quintero that I am not going to remove. Neur: Awake and alert oriented 3, no focal deficits Psych: Normal Mood and Affect Result Diagram: 02/08/17 1520 02/08/17 1520 Results 24 hrs Laboratory Tests Test 02/08/17 15:20 White Blood Count 5.510^3/ul Red Blood Count 3.7210^6/ul Hemoglobin 8.9g/dl Hematocrit 29.5% Mean Corpuscular Volume 79.3fl Mean Corpuscular Hemoglobin 23.9pg Mean Corpuscular Hemoglobin Concent 30.2g/dl Red Cell Distribution Width 18.6% Platelet Count 62174^3/UL Mean Platelet Volume 10.1fl Neutrophils % 58.7% Lymphocytes % 27.5% Monocytes % 10.1% Eosinophils % 2.9% Basophils % 0.4% Nucleated Red Blood Cells % 0.0/100WBC Neutrophils # 3.210^3/ul Lymphocytes # 1.510^3/ul Monocytes # 0.610^3/ul Eosinophils # 0.210^3/ul Basophils # 0.010^3/ul Nucleated Red Blood Cells # 0.010^3/ul Prothrombin Time 13.4Sec Prothrombin Time Ratio 1.0 INR International Normalized Ratio 1.02 Activated Partial Thromboplast Time 29.5Sec Sodium Level 139mmol/L Potassium Level 3.2mmol/L Chloride Level 107mmol/L Carbon Dioxide Level 21mmol/L Anion Gap 14 Blood Urea Nitrogen 20mg/dl Creatinine 1.36mg/dl Glucose Level 133mg/dl Calcium Level 9.0mg/dl Current Medications Medications (Trade) Dose Ordered Sig/Gelacio Route PRN Reason Start Time Stop Time Status Last Admin Dose Admin Sodium Chloride (NS) 1,000 ml @ 1,000 mls/hr Q1H STAT IV 02/08/17 14:38 02/08/17 15:37 DC 02/08/17 14:54 Procedures/MDM Patient admitted for anesthesia because of left hand Yeager's fracture. Preoperative workup performed. Patient was hydrated liter normal saline. She has a paced rhythm but no blurring laboratory abnormalities that need correction noted to be induced with anesthesia. She is being admitted by Dr. Adelita Stolar will address her normocytic anemia and mild hypokalemia.. Dr. Quintero is aware of the patient's arrival. EKG interpretation: Paced rhythm rate of 60, no other concerning abnormalities. Further interpretation not possible. Chest x-ray interpretation: Excellent participation in inspiration versus mild emphysema, no other acute process. I see no pulmonary edema, no infiltrates, no pneumothorax, no fractures. Departure Diagnosis: Primary Impression: Yeager's fracture of left radius Additional Impressions: Paced cardiac rhythm Microcytic anemia Condition: Stable AUSTIN WILSON DO Feb 08, 2017 18:14
[2017-02-08] MEDS ORDERED: ALBUTEROL HFA 8 GM INHALER INH PRN (18:30)
[2017-02-08] MEDS ORDERED: SOD CHLORIDE 0.9% 1,000 ML IV ONE (18:30)
[2017-02-08] MEDS ORDERED: DOCUSATE SODIUM 100 MG CAP PO PRN (18:30)
[2017-02-08] MEDS ORDERED: MAGNESIUM HYDROXIDE 30ML CUP PO PRN (18:30)
[2017-02-08] MEDS ORDERED: LORAZEPAM 1 MG TAB PO PRN (18:30)
[2017-02-08] MEDS ORDERED: morphine 2 MG INJ IV PRN (18:30)
[2017-02-08] MEDS ORDERED: BISACODYL (EC) 5 MG TAB PO PRN (18:30)
[2017-02-08] MEDS ORDERED: POTASSIUM CHLORIDE 20 MEQ POWDER FOR ORAL SOLN PO STA (18:34)
[2017-02-08 19:37] VITALS: TEMP 98.1
[2017-02-08 19:54] VITALS: Ht 167.6 cm; Wt 72.3 kg
[2017-02-08] MEDS ORDERED: GLUCOSE GEL 15 GRAM TUBE BUCCAL PRN (20:00)
[2017-02-08] MEDS ORDERED: DEXTROSE 50% 50 ML SYRINGE IV PRN ×2 (20:00)
[2017-02-08] MEDS ORDERED: GLUCOSE GEL 15 GRAM TUBE PO PRN ×2 (20:00)
[2017-02-08] MEDS ORDERED: GLUCAGON 1 MG INJ IM PRN (20:00)
[2017-02-08] MEDS: INSULIN ASPART [NOVOLOG] 3 ML PEN SC SCH (20:20)
[2017-02-08] MEDS: ATORVASTATIN 20 MG TAB PO SCH (20:28)
[2017-02-08] MEDS: VALSARTAN 160 MG TAB PO SCH (20:28)
[2017-02-08] MEDS ORDERED: BACLOFEN 10 MG TAB PO SCH (21:00)
[2017-02-08] MEDS ORDERED: INSULIN DETEMIR [LEVEMIR] 3ML CART SC SCH (21:00)
[2017-02-08 21:19] VITALS: BP 194/92; RESP 18
[2017-02-08 21:51] VITALS: BP 144/87; PULSE 60
[2017-02-08] MEDS: GABAPENTIN 300 MG CAP PO SCH (21:52)
[2017-02-08] MEDS: traZODone 50 MG TAB PO SCH (21:52)
[2017-02-08] MEDS: ACCU-CHEK XX SCH (21:53)
[2017-02-08] MEDS ORDERED: VALSARTAN 160 MG TAB PO SCH (22:00)
[2017-02-08] MEDS: PYRIDOSTIGMINE 60 MG TAB PO SCH (23:35)
[2017-02-09] VITALS (9 sets, daily range): BP systolic 145–191; BP diastolic 69–98; PULSE 60–78; RESP 17–20
[2017-02-09] MEDS: hydrALAzine 20 MG INJ IV PRN ×2 (03:14→10:13)
[2017-02-09] MEDS: INSULIN ASPART [NOVOLOG] 3 ML PEN SC SCH ×4 (08:00→20:43)
[2017-02-09] MEDS: VALSARTAN 160 MG TAB PO SCH ×2 (08:15→20:33)
[2017-02-09] MEDS: PYRIDOSTIGMINE 60 MG TAB PO SCH ×2 (08:16→20:53)
[2017-02-09] MEDS: LAMOTRIGINE 100 MG TAB PO SCH (08:17)
[2017-02-09] MEDS: MEMANTINE 10 MG TAB PO SCH (09:00)
[2017-02-09] MEDS: DOCUSATE SODIUM 250 MG CAP PO SCH (09:00)
[2017-02-09] MEDS: OXYBUTYNIN (XL) 5 MG TAB PO SCH ×2 (09:00→20:33)
[2017-02-09] MEDS ORDERED: MELOXICAM 15 MG TAB PO SCH (09:00)
[2017-02-09] MEDS ORDERED: NON-FORMULARY/PATIENT OWN MED (Linaclotide (Linzess) 145 MCG) PO SCH (09:00)
[2017-02-09] MEDS ORDERED: DILTIAZEM 30 MG TAB PO SCH (09:00)
[2017-02-09] MEDS: GABAPENTIN 300 MG CAP PO SCH ×3 (09:00→20:33)
[2017-02-09] MEDS: ASPIRIN (EC) 81 MG TAB PO SCH (09:00)
[2017-02-09] MEDS ORDERED: LABETALOL 200 MG TAB PO SCH (09:00)
[2017-02-09] MEDS ORDERED: DULOXETINE 30 MG CAP DR PO SCH (09:00)
[2017-02-09] MEDS: CHOLECALCIFEROL 2,000 UNIT CAP PO SCH (09:00)
[2017-02-09] MEDS ORDERED: morphine 2 MG INJ IV ONE (11:00)
[2017-02-09] MEDS ORDERED: NITROGLYCERIN (SL) 0.4 MG TAB SL PRN (11:30)
--- NOTE | 2017-02-09 11:58 | CONS ---
DATE OF ADMISSION: 02/08/2017 DATE OF CONSULTATION: 02/09/2017 REASON FOR CONSULTATION: Preoperative evaluation. REQUESTING PHYSICIAN: Dr. Sauceda from the hospitalist service and Dr. Quintero from the orthopedic servi ce. Mr. Elizalde is a 66-year-old female with history of coronary artery disease, status post coronary artery bypass grafting per patient greater than 30 years prior, diabetes mellitus, permanent pacema ker, congestive heart failure, myasthenia gravis, depression, seizure disorder who states that she w as walking 2-3 days prior and stubbed her toe on the cement and fell to the ground landing on her si de with subsequent pain in her arm and chest. Since this time, the patient has continued to have ch est pain as well as hand and arm pain. The patient had been evaluated in the outpatient clinic and found to have a wrist fracture and was sent to the Emergency Department for preoperative evaluation. Initially upon arrival, temperature 98.1, blood pressure 142/92, pulse 60, respirations 18, satura ting 98%. The patient's labs revealed a sodium 139, potassium 3.2, creatinine 136, BUN of 20, INR o f 1. The patient underwent a chest x-ray revealing cardiomegaly, calcified atherosclerosis in the a [place], hyperexpanded lungs, chronic mild interstitial prominence in both lungs. Patient's electrocar diogram with normal sinus rhythm, rate of 62, left ventricular hypertrophy with voltage criteria wit h inferior and anterolateral T-wave inversions. Patient subsequently admitted to the floor and [facility] e admit to floor, continues to complain of chest pain. PAST MEDICAL HISTORY: As above in HPI. MEDICATIONS CURRENTLY IN HOSPITAL: 1. Clonidine patch. 2. Morphine 3. Aspirin 81 mg daily. 4. Vitamin D. 5. Colace. 6. Labetalol 200 mg daily. 7. Lamictal 100 mg daily. 8. Namenda 10 mg daily. 9. Ditropan. 10. Neurontin 600 mg p.o. t.i.d. 11. Mestinon. 12. Trazodone. 13. Hydralazine p.r.n. 14. Atorvastatin 20 mg at bedtime. 15. Insulin sliding scale. 16. Diovan 160 mg b.i.d. 17. Albuterol p.r.n. 18. Colace p.r.n. 19. Milk of magnesia. 20. Dulcolax. ALLERGIES: NO KNOWN DRUG ALLERGIES. SOCIAL HISTORY: Positive tobacco, social ETOH, no illicit drug use. FAMILY HISTORY: No history of sudden cardiac or early CAD. REVIEW OF SYSTEMS: As above in HPI. CONSTITUTIONAL: No fevers, chills. PULMONARY: Shortness of breath. CARDIOVASCULAR: Positive chest pain. GASTROINTESTINAL: No vomiting. GENITOURINARY: No hematuria. MUSCULOSKELETAL: Degenerative joint disease. Wrist fracture site. PSYCHIATRIC: Positive psych history. NEUROLOGIC: No documented history of CVA. ENDOCRINE: Diabetes mellitus. PHYSICAL EXAMINATION: VITAL SIGNS: Temperature 98, blood pressure 177/78, pulse 60, respirations 18, saturating 98%. GENERAL: The patient is alert, awake, complaining of substernal chest pain and wrist pain. NECK: JVP approximately 8-9 cm water. CHEST: Fair air movement throughout. HEART: Regular rate and rhythm. Normal S1, S2, I/ systolic murmur, nondisplaced PMI. ABDOMEN: Positive bowel sounds, soft. EXTREMITIES: No pitting edema, 1+ pulses bilaterally, posterior tibial. LABORATORIES: As above in HPI, with most recent from today, white count 4.0, hemoglobin 10.2, plate let count 194. Sodium of 150, potassium 3.7, creatinine 0.91. TSH depressed at 0.097, no troponins sent. INR of 1.0. IMAGING STUDIES: As above in HPI with a chest x-ray revealing hyperexpanded lungs and chronic mild interstitial prominence. ECG: As above in HPI. No further electrocardiograms for my review at this time. IMPRESSION: 1. Preoperative evaluation prior to wrist surgery in a patient with a history of coronary artery by pass graft multiple years prior and complaining of chest pain and EKG abnormalities. 2. Coronary artery disease, status post coronary artery bypass graft surgery multiple years prior p er patient, almost 30 years if this is true, unclear if patient is a reliable historian. It would h ave been a very early age to have had a bypass surgery. No further procedures since then. 3. Abnormal electrocardiogram with inferior and lateral T-wave inversions. 4. Hypertension, uncontrolled. 5. Diabetes mellitus. 6. Dyslipidemia. 7. Myasthenia gravis. 8. Wrist fracture. RECOMMENDATIONS: 1. At this time, would check serial EKGs to assess for any significant ongoing changes. Check a re peat EKG later in the afternoon as patient's first documented EKG in the chart is this morning. Wou ld complete the patient's rule out for myocardial infarction, given ongoing chest pain, history of c oronary artery bypass graft multiple years prior. 2. Would continue the patient's labetalol, to be continued pre- and postoperatively, but would romero ge the b.i.d. dosing given half-life of medication to improve efficacy and continue the patient's as pirin as well as clonidine patch and follow blood pressures closely. 3. Check a fasting lipid panel for general risk stratification and adjust the patient's statin ther apy as necessary. 4. Continue the patient's Diovan as well for control of blood pressure. 5. We will follow the patient's 2D echo that has been ordered today for assessment of ejection frac tion, wall motion and any major valve abnormalities and given patient's ongoing complaints of chest pain, most cardiac risk factors, we will discuss the timing of surgery with the surgeon for possible need for preoperative stress test given ongoing symptoms of chest pain. Thank you for allowing me to take part in the care of this patient. I will continue to follow very closely with you with further recommendations to be made as the patient progresses through her [facility] clinical course. Dictated By: KAREN PERES/REBECCA Conf#: [id number] DID#: [id number] CC: LITA SAUCEDA MD;*EndCC*
--- NOTE | 2017-02-09 13:39 | PN ---
Date/Time of Note Date/Time of Note DATE: 02/09/17 TIME: 13:33 Assessment/Plan VTE Prophylaxis VTE Prophylaxis Intervention: SCD's Lines/Catheters IV Catheter Type (from Nrsg): Saline Lock Urinary Cath still in place: No Assessment/Plan Assessment/Plan ASSESSMENT: 1. Left radius fracture, failed reduction, need Gen Anesthesia for surgery 2. H/o CAD S/p CABG 3. HTN 4. DM II 5. 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 - plan is to get Troponin and stress test today for Pre op work up BP controlled, continue current regiment will keep pt NPO until Pre op work up done if not possible then pt will get surgery tomorrow SCD for DVT prophylaxis Subjective 24 Hr Interval Summary Free Text/Dictation pt needs Wrist surgery - requested cardiology clearance, BP stable, Pain not controlled with current regimen Exam/Review of Systems Vital Signs Vitals Vital Signs Date Time Temp Pulse Resp B/P Pulse Ox O2 Delivery O2 Flow Rate FiO2 02/09/17 11:30 98.8 75 18 145/69 97 Room Air Intake and Output 02/08/17 02/08/17 02/09/17 15:00 23:00 07:00 Intake Total 400 ml Output Total 600 ml Balance -600 ml 400 ml Exam Constitutional: alert Psych: no complaints Head: normocephalic Eyes: nl conjunctiva ENMT: nl external ears & nose Neck: non-tender, supple Respiratory: clear to auscultation, diminished breath sounds, normal air movement Cardiovascular: nl pulses, other (paced rthythm), regular rate and rhythm Gastrointestinal: non-tender, soft Musculoskeletal: nl extremities to inspection, nl gait and stance Extremities: normal pulses Neurological: TELEPHONE SURVEYOR II-XII intact, nl mental status, nl speech, nl strength Results Result Diagram: 02/09/1738 02/09/1738 Results 24 hrs Laboratory Tests Test 02/08/17 15:20 02/08/17 20:17 02/09/17 05:38 02/09/17 08:11 White Blood Count 5.5 4.0 #L Red Blood Count 3.72 L 4.25 Hemoglobin 8.9 L 10.2 L Hematocrit 29.5 L 33.6 L Mean Corpuscular Volume 79.3 L 79.1 L Mean Corpuscular Hemoglobin 23.9 L 24.0 L Mean Corpuscular Hemoglobin Concent 30.2 L 30.4 L Red Cell Distribution Width 18.6 H 18.8 H Platelet Count 228 194 Mean Platelet Volume 10.1 11.0 H Neutrophils % 58.7 52.0 Lymphocytes % 27.5 32.4 Monocytes % 10.1 10.4 Eosinophils % 2.9 4.5 Basophils % 0.4 0.5 Nucleated Red Blood Cells % 0.0 0.0 Neutrophils # 3.2 2.1 Lymphocytes # 1.5 1.3 Monocytes # 0.6 0.4 Eosinophils # 0.2 0.2 Basophils # 0.0 0.0 Nucleated Red Blood Cells # 0.0 0.0 Prothrombin Time 13.4 Prothrombin Time Ratio 1.0 INR International Normalized Ratio 1.02 Activated Partial Thromboplast Time 29.5 Sodium Level 139 150 H Potassium Level 3.2 L 3.7 Chloride Level 107 118 H Carbon Dioxide Level 21 24 Anion Gap 14 12 Blood Urea Nitrogen 20 14 Creatinine 1.36 H 0.91 Glucose Level 133 109 Calcium Level 9.0 9.0 Bedside Glucose 123 121 Absolute Reticulocyte Count 0.059 Percent Reticulocyte Count 1.4 Iron Level 36 Total Iron Binding Capacity 402 Percent Iron Saturation 9 L Thyroid Stimulating Hormone (TSH) 0.097 L Free Thyroxine 1.36 Test 02/09/17 12:00 02/09/17 12:21 Troponin I < 0.012 Bedside Glucose 125 Medications Medications Current Medications Albuterol (Ventolin Hfa) 2 puff Q4H PRN INH WHEEZING AND SOB; Start 02/08/17 at 18:30 Aspirin (Halfprin) 81 mg DAILY PO ; Start 02/09/17 at 09:00 Atorvastatin Calcium (Lipitor) 20 mg QHS PO Last administered on 02/08/17t 20: 28; Admin Dose 20 MG; Start 02/08/17 at 21:00 Cholecalciferol (Vitamin D) 2,000 unit DAILY PO ; Start 02/09/17 at 09:00 Clonidine HCl (Catapres-Tts 3 Patch) 1 patch Q7D TRANSDERM ; Start 02/10/17 at 09:00 Docusate Sodium (Colace) 250 mg DAILY PO ; Start 02/09/17 at 09:00 Gabapentin (Neurontin) 600 mg TID PO Last administered on 02/08/17 21:52; Admin Dose 600 MG; Start 02/08/17 at 22:00 Lamotrigine (Lamictal) 100 mg DAILY PO Last administered on 02/09/17 08:17; Admin Dose 100 MG; Start 02/09/17 at 09:00 Memantine (Namenda) 10 mg DAILY PO ; Start 02/09/17 at 09:00 Oxybutynin Chloride (Ditropan Xl) 5 mg BID PO ; Start 02/09/17 at 09:00 Pyridostigmine [place] (Mestinon) 60 mg BID PO Last administered on 02/09/17 08:16; Admin Dose 60 MG; Start 02/08/17 at 22:00 Trazodone HCl (Desyrel) 50 mg QHS PO Last administered on 02/08/17 21:52; Admin Dose 50 MG; Start 02/08/17 at 22:00 Acetaminophen/ Hydrocodone Bitart ([place] (5/325)) 1 tab Q6H PRN PO MODERATE PAIN LEVEL 4-6; Start 02/08/17 at 18:30 Morphine Sulfate (morphine) 2 mg Q4H PRN IV SEVERE PAIN LEVEL 7-10 Last administered on 02/09/17 08:23; Admin Dose 2 MG; Start 02/08/17 at 18:30 Docusate Sodium (Colace) 100 mg Q12H PRN PO CONSTIPATION; Start 02/08/17 at 18: 30 Magnesium Hydroxide (Milk Of Mag) 30 ml DAILY PRN PO CONSTIPATION; Start at 18:30 Bisacodyl (Dulcolax) 5 mg DAILY PRN PO CONSTIPATION; Start 02/08/17 at 18:30 Diagnostic Test (Pha) (Accu-Chek) 1 ea 02 XX ; Start 02/09/17 at 02:00 Miscellaneous Information 1 ea NOTE XX ; Start 02/08/17 at 20:00 Glucose (Glutose) 15 gm Q15M PRN PO DECREASED GLUCOSE; Start 02/08/17 at 20:00 Glucose (Glutose) 22.5 gm Q15M PRN PO DECREASED GLUCOSE; Start 02/08/17 at 20: 00 Dextrose (D50w Syringe) 25 ml Q15M PRN IV DECREASED GLUCOSE; Start 02/08/17 at 20:00 Dextrose (D50w Syringe) 50 ml Q15M PRN IV DECREASED GLUCOSE; Start 02/08/17 at 20:00 Glucagon (Glucagen) 1 mg Q15M PRN IM DECREASED GLUCOSE; Start 02/08/17 at 20:00 Glucose (Glutose) 15 gm Q15M PRN BUCCAL DECREASED GLUCOSE; Start 02/08/17 at 20 :00 Valsartan (Diovan) 160 mg BID PO Last administered on 02/09/17 08:15; Admin Dose 160 MG; Start 02/08/17 at 20:00 Hydralazine HCl (Apresoline) 10 mg Q4H PRN IV ELEVATED BLOOD PRESSURE Last administered on 02/09/17 10:13; Admin Dose 10 MG; Start 02/08/17 at 21:30 Labetalol HCl (Normodyne) 200 mg BID PO ; Start 02/09/17 at 21:00 Nitroglycerin (Nitroglycerin (Sl Tab) 0.4 Mg) 1 tab Q5M PRN SL ANGINA Last administered on 02/09/17 11:31; Admin Dose 1 TAB; Start 02/09/17 at 11:30 DEWEY ESCALANTE MD Feb 09, 2017 13:39
--- NOTE | 2017-02-09 14:11 | RADRPT ---
Vent Rate: 62 bpm RR Interval: 0 msec OR Interval: 188 msec QRS Duration: 82 msec QT Interval: 430 msec QTC Interval: 436 msec P-R-T [place]: 62 - 69 - -68 degrees Normal sinus rhythm Minimal voltage criteria for LVH, may be normal variant T wave abnormality, consider inferior ischemia T wave abnormality, consider anterolateral ischemia Abnormal ECG Electronically Signed By: Silverio Martinez [id number]
--- NOTE | 2017-02-09 14:11 | RADRPT ---
Vent Rate: 62 bpm RR Interval: 0 msec [place] Interval: 188 msec QRS Duration: 82 msec QT Interval: 430 msec QTC Interval: 436 msec P-R-T [place]: 62 - 69 - -68 degrees Normal sinus rhythm Minimal voltage criteria for LVH, may be normal variant T wave abnormality, consider inferior ischemia T wave abnormality, consider anterolateral ischemia Abnormal ECG Electronically Signed By: Silverio Martinez [id number]
--- NOTE | 2017-02-09 14:11 | RADRPT ---
Vent Rate: 62 bpm RR Interval: 0 msec [place] Interval: 188 msec QRS Duration: 82 msec QT Interval: 430 msec QTC Interval: 436 msec P-R-T [place]: 62 - 69 - -68 degrees Normal sinus rhythm Minimal voltage criteria for LVH, may be normal variant T wave abnormality, consider inferior ischemia T wave abnormality, consider anterolateral ischemia Abnormal ECG Electronically Signed By: Silverio Martinez [id number]
--- NOTE | 2017-02-09 15:22 | RADRPT ---
Echocardiogram Report Patient Name: JIMBO BOATENG Gender: Female Date: 1950 Study Date: 09-Feb-2017 Process Safety Manager: Tray Tate [facility] Location: 2261-A Ref. Physician: DEWEY ESCALANTE Quality: Adequate Procedures: Transthoracic echocardiogram with complete 2D, M-Mode, and doppler examination. Indications: Pre-op wrist surgery. 2D/M Mode Doppler Measurement Value Normal Ranges Measurement Value Normal Ranges LVIDd 2D 4.4 3.5 - 5.6 cm DMITRI Vmax 2.1 cm2 LVIDs 2D 2.9 2.1 - 4.1 cm AV Mean Renato 1.7 m/sec FS 2D 35.1 % AV Mean PG 15.0 mmHg LVPWd 2D 1.5 0.6 - 1.1 cm AV Peak Renato 2.9 m/sec IVSd 2D 1.7 0.6 - 1.1 cm AV Peak PG 34.0 mmHg IVS/LVPW 2D 1.1 AV VTI 55.5 cm AoR Diam 2D 2.7 2.0 - 3.7 cm LVOT Peak Renato 1.8 m/sec LA/Ao 2D 2 0 - 1 LVOT Peak PG 13.0 mmHg EDV 2D 86.4 cm3 MV E Peak Renato 0.8 m/sec ESV 2D 23.6 cm3 MV A Peak Renato 1.4 m/sec LA Dimen 2D 4.1 2.3 - 4.0 cm MV E/A 0.6 LVOT Diam 2.1 cm MV Decel Time 239 msec LVOT Area 3.5 cm2 MV E/A 0.6 TR Peak Renato 2.9 m/sec TR Peak PG 35.0 mmHg RVSP 38.0 mmHg Findings Left Ventricle: Hyperdynamic left ventricular systolic function. Normal left ventricular cavity size. Moderate concentric left ventricular hypertrophy. Ejection fraction is visually estimated at 6065 %. Tissue Doppler/Mitral Doppler indices are consistent with impaired relaxation (Stage I diastolic dysfunction). Right Ventricle: Normal right ventricular size. Normal right ventricular systolic function. Pacemaker right heart. Left Atrium: There is mild enlargement of left atrium. Right Atrium: The right atrium is normal in size. Mitral Valve: Mild mitral leaflet calcification. Mild mitral annular calcification. Mild mitral valve regurgitation. Aortic Valve: Aortic sclerosis without stenosis. Tricuspid Valve: Normal appearance of the tricuspid valve. Estimated peak PA systolic pressure 38 mmHg. There is mild to moderate tricuspid regurgitation. Pulmonic Valve: Pulmonic valve not well visualized. There is trace pulmonic regurgitation. Pericardium: Trivial pericardial effusion. Aorta: Normal aortic root. IVC: Normal size and normal respiratory collapse consistent with normal right atrial pressure. Conclusions 1.Hyperdynamic left ventricular systolic function. Normal left ventricular cavity size. Moderate concentric left ventricular hypertrophy. Ejection fraction is visually estimated at 60-65 %. Tissue Doppler/Mitral Doppler indices are consistent with impaired relaxation (Stage I diastolic dysfunction). 2.Normal right ventricular size. Normal right ventricular systolic function. Pacemaker right heart. 3.There is mild enlargement of left atrium. 4.Mild mitral leaflet calcification. Mild mitral annular calcification. Mild mitral valve regurgitation. 5.Normal appearance of the tricuspid valve. Estimated peak PA systolic pressure 38 mmHg. There is mild to moderate tricuspid regurgitation. 6.Pulmonic valve not well visualized. There is trace pulmonic regurgitation. 7.Trivial pericardial effusion. Electronically Signed By: Vincenzo Gold 09-Feb-2017 15:21:42 -0700 Patient Name: JIMBO BOATENG Study Date: 09-Feb-2017 [id number]
--- NOTE | 2017-02-09 15:22 | RADRPT ---
Echocardiogram Report Patient Name: JIMBO BOATENG Gender: Female Date: 1950 Study Date: 09-Feb-2017 Regional Education Coordinator: Tray Tate [facility] Location: 2261-A Ref. Physician: DEWEY ESCALANTE Quality: Adequate Procedures: Transthoracic echocardiogram with complete 2D, M-Mode, and doppler examination. Indications: Pre-op wrist surgery. 2D/M Mode Doppler Measurement Value Normal Ranges Measurement Value Normal Ranges LVIDd 2D 4.4 3.5 - 5.6 cm DMITRI Vmax 2.1 cm2 LVIDs 2D 2.9 2.1 - 4.1 cm AV Mean Renato 1.7 m/sec FS 2D 35.1 % AV Mean PG 15.0 mmHg LVPWd 2D 1.5 0.6 - 1.1 cm AV Peak Renato 2.9 m/sec IVSd 2D 1.7 0.6 - 1.1 cm AV Peak PG 34.0 mmHg IVS/LVPW 2D 1.1 AV VTI 55.5 cm AoR Diam 2D 2.7 2.0 - 3.7 cm LVOT Peak Renato 1.8 m/sec LA/Ao 2D 2 0 - 1 LVOT Peak PG 13.0 mmHg EDV 2D 86.4 cm3 MV E Peak Renato 0.8 m/sec ESV 2D 23.6 cm3 MV A Peak Renato 1.4 m/sec LA Dimen 2D 4.1 2.3 - 4.0 cm MV E/A 0.6 LVOT Diam 2.1 cm MV Decel Time 239 msec LVOT Area 3.5 cm2 MV E/A 0.6 TR Peak Renato 2.9 m/sec TR Peak PG 35.0 mmHg RVSP 38.0 mmHg Findings Left Ventricle: Hyperdynamic left ventricular systolic function. Normal left ventricular cavity size. Moderate concentric left ventricular hypertrophy. Ejection fraction is visually estimated at 6065 %. Tissue Doppler/Mitral Doppler indices are consistent with impaired relaxation (Stage I diastolic dysfunction). Right Ventricle: Normal right ventricular size. Normal right ventricular systolic function. Pacemaker right heart. Left Atrium: There is mild enlargement of left atrium. Right Atrium: The right atrium is normal in size. Mitral Valve: Mild mitral leaflet calcification. Mild mitral annular calcification. Mild mitral valve regurgitation. Aortic Valve: Aortic sclerosis without stenosis. Tricuspid Valve: Normal appearance of the tricuspid valve. Estimated peak PA systolic pressure 38 mmHg. There is mild to moderate tricuspid regurgitation. Pulmonic Valve: Pulmonic valve not well visualized. There is trace pulmonic regurgitation. Pericardium: Trivial pericardial effusion. Aorta: Normal aortic root. IVC: Normal size and normal respiratory collapse consistent with normal right atrial pressure. Conclusions 1.Hyperdynamic left ventricular systolic function. Normal left ventricular cavity size. Moderate concentric left ventricular hypertrophy. Ejection fraction is visually estimated at 60-65 %. Tissue Doppler/Mitral Doppler indices are consistent with impaired relaxation (Stage I diastolic dysfunction). 2.Normal right ventricular size. Normal right ventricular systolic function. Pacemaker right heart. 3.There is mild enlargement of left atrium. 4.Mild mitral leaflet calcification. Mild mitral annular calcification. Mild mitral valve regurgitation. 5.Normal appearance of the tricuspid valve. Estimated peak PA systolic pressure 38 mmHg. There is mild to moderate tricuspid regurgitation. 6.Pulmonic valve not well visualized. There is trace pulmonic regurgitation. 7.Trivial pericardial effusion. Electronically Signed By: Vincenzo Gold 09-Feb-2017 15:21:42 -0700 Patient Name: JIMBO BOATENG Study Date: 09-Feb-2017 [id number]
--- NOTE | 2017-02-09 15:22 | RADRPT ---
Echocardiogram Report Patient Name: JIMBO BOATENG Gender: Female Date: 1950 Study Date: 09-Feb-2017 Training Associate: Tray Tate [facility] Location: 2261-A Ref. Physician: DEWEY ESCALANTE Quality: Adequate Procedures: Transthoracic echocardiogram with complete 2D, M-Mode, and doppler examination. Indications: Pre-op wrist surgery. 2D/M Mode Doppler Measurement Value Normal Ranges Measurement Value Normal Ranges LVIDd 2D 4.4 3.5 - 5.6 cm DMITRI Vmax 2.1 cm2 LVIDs 2D 2.9 2.1 - 4.1 cm AV Mean Renato 1.7 m/sec FS 2D 35.1 % AV Mean PG 15.0 mmHg LVPWd 2D 1.5 0.6 - 1.1 cm AV Peak Renato 2.9 m/sec IVSd 2D 1.7 0.6 - 1.1 cm AV Peak PG 34.0 mmHg IVS/LVPW 2D 1.1 AV VTI 55.5 cm AoR Diam 2D 2.7 2.0 - 3.7 cm LVOT Peak Renato 1.8 m/sec LA/Ao 2D 2 0 - 1 LVOT Peak PG 13.0 mmHg EDV 2D 86.4 cm3 MV E Peak Renato 0.8 m/sec ESV 2D 23.6 cm3 MV A Peak Renato 1.4 m/sec LA Dimen 2D 4.1 2.3 - 4.0 cm MV E/A 0.6 LVOT Diam 2.1 cm MV Decel Time 239 msec LVOT Area 3.5 cm2 MV E/A 0.6 TR Peak Renato 2.9 m/sec TR Peak PG 35.0 mmHg RVSP 38.0 mmHg Findings Left Ventricle: Hyperdynamic left ventricular systolic function. Normal left ventricular cavity size. Moderate concentric left ventricular hypertrophy. Ejection fraction is visually estimated at 6065 %. Tissue Doppler/Mitral Doppler indices are consistent with impaired relaxation (Stage I diastolic dysfunction). Right Ventricle: Normal right ventricular size. Normal right ventricular systolic function. Pacemaker right heart. Left Atrium: There is mild enlargement of left atrium. Right Atrium: The right atrium is normal in size. Mitral Valve: Mild mitral leaflet calcification. Mild mitral annular calcification. Mild mitral valve regurgitation. Aortic Valve: Aortic sclerosis without stenosis. Tricuspid Valve: Normal appearance of the tricuspid valve. Estimated peak PA systolic pressure 38 mmHg. There is mild to moderate tricuspid regurgitation. Pulmonic Valve: Pulmonic valve not well visualized. There is trace pulmonic regurgitation. Pericardium: Trivial pericardial effusion. Aorta: Normal aortic root. IVC: Normal size and normal respiratory collapse consistent with normal right atrial pressure. Conclusions 1.Hyperdynamic left ventricular systolic function. Normal left ventricular cavity size. Moderate concentric left ventricular hypertrophy. Ejection fraction is visually estimated at 60-65 %. Tissue Doppler/Mitral Doppler indices are consistent with impaired relaxation (Stage I diastolic dysfunction). 2.Normal right ventricular size. Normal right ventricular systolic function. Pacemaker right heart. 3.There is mild enlargement of left atrium. 4.Mild mitral leaflet calcification. Mild mitral annular calcification. Mild mitral valve regurgitation. 5.Normal appearance of the tricuspid valve. Estimated peak PA systolic pressure 38 mmHg. There is mild to moderate tricuspid regurgitation. 6.Pulmonic valve not well visualized. There is trace pulmonic regurgitation. 7.Trivial pericardial effusion. Electronically Signed By: Vincenzo Gold 09-Feb-2017 15:21:42 -0700 Patient Name: JIMBO BOATENG Study Date: 09-Feb-2017 [id number]
[2017-02-09] MEDS: morphine 2 MG INJ IV PRN ×3 (16:08→23:56)
--- NOTE | 2017-02-09 19:37 | RADRPT ---
PROCEDURE: Lexiscan myocardial perfusion study CLINICAL INDICATION: 66 -year-old patient complaining of chest pain. TECHNIQUE: Lexiscan 0.4 mg intravenously separate acquisition gated myocardial perfusion SPECT usi ng Tc 99m Myoview 29.5 mCi intravenously at stress and Tc-99m Myoview, 9.5 mCi intravenously at rest was performed using the rest/stress sequence. Poststress Myoview SPECT images were obtained in the supine position. COMPARISON: No prior studies. FINDINGS: Perfusion images reveal no evidence of perfusion defects. Lexiscan post stress gated SPECT images demonstrate no wall motion abnormalities. IMPRESSION: 1. No evidence of perfusion defects. 2. No wall motion abnormalities. 3. The left ventricle ejection fraction at stress is greater than 70%. A call report was made to Dr. Gold at 07:34 p.m. on February 09, 2017. RPTAT: HH .Lo Avendano MD, Date Time Electronically viewed and signed by .Lo Avendano MD, MD on 02/09/2017 19:36 .L/
[2017-02-09] MEDS: traZODone 50 MG TAB PO SCH (20:32)
[2017-02-09] MEDS: LABETALOL 200 MG TAB PO SCH (20:33)
[2017-02-09] MEDS: ATORVASTATIN 20 MG TAB PO SCH (20:34)
[2017-02-10] VITALS (14 sets, daily range): BP systolic 108–191; BP diastolic 59–103; PULSE 62–70; RESP 16–32
[2017-02-10] MEDS: ACCU-CHEK XX SCH (02:00)
[2017-02-10] MEDS: morphine 2 MG INJ IV PRN ×6 (03:35→20:30)
--- NOTE | 2017-02-10 04:01 | CARRPT ---
DATE OF PROCEDURE: 02/09/2017 PROCEDURE PERFORMED: Lexiscan Cardiolite stress test, electrocardiogram portion. REASON FOR STRESS TESTING: Preoperative in a patient with multiple cardiac risk factors, ____ CABG and chest pain. BASELINE VITAL SIGNS AND ELECTROCARDIOGRAM: Pulse 61, blood pressure 152/77. Electrocardiogram rev eals a sinus rhythm, rate of 60, with left ventricular hypertrophy voltage criteria, inferior and la teral T-wave inversions. PROCEDURE: Patient with standard Lexiscan infusion protocol over 10 seconds followed by radiolabele d tracer. The patient's test was stopped due to completion of protocol. Maximum achieved blood pre ssure during the test 161/73. Maximum heart rate during the test 96. ELECTROCARDIOGRAM FINDINGS: The patient did not develop any new Lexiscan-induced ST or T-wave romero es from baseline abnormalities. Had exaggeration of previously noted T-wave inversions in the infer ior and lateral leads during Lexiscan infusion, which returned to normal during recovery. SYMPTOMS: The patient had no complaints of chest pain, had mild shortness of breath during stress w hich resolved in recovery. IMPRESSION: 1. No Lexiscan-induced ST or T-wave changes from baseline abnormalities or diagnostic cardiac ische bulmaro. 2. No complaints of chest pain during stress testing. Positive shortness of breath resolved in rec overy. 3. No documented premature ventricular contractions during stress testing. 4. Report of nuclear images to follow in separate dictation. Dictated By: KAREN PERES/REBECCA Conf#: [id number] DID#: [id number]
[2017-02-10] MEDS: hydrALAzine 20 MG INJ IV PRN (04:11)
[2017-02-10] MEDS: INSULIN ASPART [NOVOLOG] 3 ML PEN SC SCH ×4 (07:52→20:53)
[2017-02-10] MEDS: MEMANTINE 10 MG TAB PO SCH (09:00)
[2017-02-10] MEDS: GABAPENTIN 300 MG CAP PO SCH ×3 (09:00→20:30)
[2017-02-10] MEDS: DOCUSATE SODIUM 250 MG CAP PO SCH (09:00)
[2017-02-10] MEDS ORDERED: CLONIDINE 0.3 MG/24 HR PATCH TRANSDERM SCH (09:00)
[2017-02-10] MEDS: LAMOTRIGINE 100 MG TAB PO SCH (09:00)
[2017-02-10] MEDS: OXYBUTYNIN (XL) 5 MG TAB PO SCH ×2 (09:00→20:31)
[2017-02-10] MEDS: LABETALOL 200 MG TAB PO SCH ×2 (09:00→20:35)
[2017-02-10] MEDS: CHOLECALCIFEROL 2,000 UNIT CAP PO SCH (09:00)
[2017-02-10] MEDS: VALSARTAN 160 MG TAB PO SCH ×2 (09:00→20:35)
[2017-02-10] MEDS: ASPIRIN (EC) 81 MG TAB PO SCH (09:00)
[2017-02-10] MEDS: PYRIDOSTIGMINE 60 MG TAB PO SCH ×2 (09:00→20:31)
[2017-02-10] MEDS: D5W-0.45 NACL + KCL 10 MEQ 1,000 ML IV SCH (10:20)
[2017-02-10] MEDS ORDERED: POTASSIUM CHLORIDE 20 MEQ in DEXTROSE 5% 100 ML IVPB ONE (10:30)
[2017-02-10] MEDS ORDERED: POTASSIUM CHLORIDE 20 MEQ in SOD CHLORIDE 0.9% 100 ML IVPB ONE (10:30)
[2017-02-10] MEDS: MUPIROCIN 2% 22 GM OINT TOP SCH ×2 (11:30→20:35)
--- NOTE | 2017-02-10 12:54 | CONS ---
Date/Time of Note Date/Time of Note DATE: 02/10/17 TIME: 12:50 Assessment/Plan Assessment/Plan Additional Assessment/Plan Left radius fracture CAD S/p CABG, s/p PPM Hypertension Diabetes Hyperlipidemia hemodynamically stable has been ruled out for ACS stress test no ischemia Echo shows normal systolic function with mild pulmonary hypertension and trivial pericardial effusion she is cleared for surgery with low risk Replete Potassium Control valsartan and clonidine Continue ASA Continue Labetalol Continue Lipitor Continue Insulin Consultation Date/Type/Reason Admit Date/Time Psychological: no complaints Social History Smoking Status: Current every day smoker Exam/Review of Systems Vital Signs Vitals Vital Signs Date Time Temp Pulse Resp B/P Pulse Ox O2 Delivery O2 Flow Rate FiO2 02/10/17 08:20 98.4 59 18 153/71 94 02/09/17 11:30 Room Air Intake and Output 02/09/17 02/09/17 02/10/17 15:00 23:00 07:00 Intake Total 0 ml 250 ml Balance 0 ml 250 ml Exam Constitutional: alert, oriented Head: atraumatic, normocephalic Neck: non-tender, supple Respiratory: clear to auscultation Cardiovascular: regular rate and rhythm Gastrointestinal: nl liver, spleen, non-tender, soft Extremities: normal pulses Results Result Diagram: 02/10/17 0802 02/10/17 0802 Results 24 hrs Laboratory Tests Test 02/09/17 18:36 02/09/17 18:40 02/09/17 20:39 02/10/17 01:01 Troponin I < 0.012 < 0.012 Bedside Glucose 113 188 Test 02/10/17 02:01 02/10/17 07:51 02/10/17 08:02 02/10/17 08:06 Bedside Glucose 152 143 White Blood Count 4.9 # Red Blood Count 4.06 L Hemoglobin 9.3 L Hematocrit 31.3 L Mean Corpuscular Volume 77.1 L Mean Corpuscular Hemoglobin 22.9 L Mean Corpuscular Hemoglobin Concent 29.7 L Red Cell Distribution Width 19.3 H Platelet Count 264 # Mean Platelet Volume 9.9 Neutrophils % 51.2 Lymphocytes % 36.1 Monocytes % 8.6 Eosinophils % 3.3 Basophils % 0.4 Nucleated Red Blood Cells % 0.0 Neutrophils # 2.5 Lymphocytes # 1.8 Monocytes # 0.4 Eosinophils # 0.2 Basophils # 0.0 Nucleated Red Blood Cells # 0.0 Sodium Level 145 H Potassium Level 2.9 *L Chloride Level 115 H Carbon Dioxide Level 27 Anion Gap 6 L Blood Urea Nitrogen 15 Creatinine 0.86 Glucose Level 124 Calcium Level 8.9 Total Bilirubin 0.1 L Direct Bilirubin 0.00 Indirect Bilirubin 0.1 Aspartate Amino Transf (AST/SGOT) 29 Alanine Aminotransferase (ALT/SGPT) 36 Alkaline Phosphatase 70 Total Protein 6.1 Albumin 3.0 L Globulin 3.10 Albumin/Globulin Ratio 0.96 Prothrombin Time 13.7 Prothrombin Time Ratio 1.1 INR International Normalized Ratio 1.05 Activated Partial Thromboplast Time 28.2 Test 02/10/17 11:59 Bedside Glucose 134 Medications Medications Current Medications Albuterol (Ventolin Hfa) 2 puff Q4H PRN INH WHEEZING AND SOB; Start 02/08/17 at 18:30 Aspirin (Halfprin) 81 mg DAILY PO ; Start 02/09/17 at 09:00 Atorvastatin Calcium (Lipitor) 20 mg QHS PO Last administered on 02/09/17 20: 34; Admin Dose 20 MG; Start 02/08/17 at 21:00 Cholecalciferol (Vitamin D) 2,000 unit DAILY PO ; Start 02/09/17 at 09:00 Clonidine HCl (Catapres-Tts 3 Patch) 1 patch Q7D TRANSDERM Last administered on 02/10/17 09:22; Admin Dose 1 PATCH; Start 02/10/17 at 09:00 Docusate Sodium (Colace) 250 mg DAILY PO ; Start 02/09/17 at 09:00 Gabapentin (Neurontin) 600 mg TID PO Last administered on 02/09/17 20:33; Admin Dose 600 MG; Start 02/08/17 at 22:00 Lamotrigine (Lamictal) 100 mg DAILY PO Last administered on 02/09/17 08:17; Admin Dose 100 MG; Start 02/09/17 at 09:00 Memantine (Namenda) 10 mg DAILY PO ; Start 02/09/17 at 09:00 Oxybutynin Chloride (Ditropan Xl) 5 mg BID PO Last administered on 02/09/17 20 :33; Admin Dose 5 MG; Start 02/09/17 at 09:00 Pyridostigmine [place] (Mestinon) 60 mg BID PO Last administered on 02/09/17 20:53; Admin Dose 60 MG; Start 02/08/17 at 22:00 Trazodone HCl (Desyrel) 50 mg QHS PO Last administered on 02/09/17 20:32; Admin Dose 50 MG; Start 02/08/17 at 22:00 Acetaminophen/ Hydrocodone Bitart ([place] (5/325)) 1 tab Q6H PRN PO MODERATE PAIN LEVEL 4-6; Start 02/08/17 at 18:30 Docusate Sodium (Colace) 100 mg Q12H PRN PO CONSTIPATION; Start 02/08/17 at 18: 30 Magnesium Hydroxide (Milk Of Mag) 30 ml DAILY PRN PO CONSTIPATION; Start at 18:30 Bisacodyl (Dulcolax) 5 mg DAILY PRN PO CONSTIPATION; Start 02/08/17 at 18:30 Diagnostic Test (Pha) (Accu-Chek) 1 ea 02 XX ; Start 02/09/17 at 02:00 Miscellaneous Information 1 ea NOTE XX ; Start 02/08/17 at 20:00 Glucose (Glutose) 15 gm Q15M PRN PO DECREASED GLUCOSE; Start 02/08/17 at 20:00 Glucose (Glutose) 22.5 gm Q15M PRN PO DECREASED GLUCOSE; Start 02/08/17 at 20: 00 Dextrose (D50w Syringe) 25 ml Q15M PRN IV DECREASED GLUCOSE; Start 02/08/17 at 20:00 Dextrose (D50w Syringe) 50 ml Q15M PRN IV DECREASED GLUCOSE; Start 02/08/17 at 20:00 Glucagon (Glucagen) 1 mg Q15M PRN IM DECREASED GLUCOSE; Start 02/08/17 at 20:00 Glucose (Glutose) 15 gm Q15M PRN BUCCAL DECREASED GLUCOSE; Start 02/08/17 at 20 :00 Valsartan (Diovan) 160 mg BID PO Last administered on 02/09/17 20:33; Admin Dose 160 MG; Start 02/08/17 at 20:00 Hydralazine HCl (Apresoline) 10 mg Q4H PRN IV ELEVATED BLOOD PRESSURE Last administered on 02/10/17 04:11; Admin Dose 10 MG; Start 02/08/17 at 21:30 Labetalol HCl (Normodyne) 200 mg BID PO Last administered on 02/09/17 20:33; Admin Dose 200 MG; Start 02/09/17 at 21:00 Nitroglycerin (Nitroglycerin (Sl Tab) 0.4 Mg) 1 tab Q5M PRN SL ANGINA Last administered on 02/09/17 11:31; Admin Dose 1 TAB; Start 02/09/17 at 11:30 Morphine Sulfate 2 mg 2 mg Q3H PRN IV SEVERE PAIN LEVEL 7-10 Last administered on 02/10/17 12:39; Admin Dose 2 MG; Start 02/09/17 at 16:30 Potassium Chloride/Dextrose/ Sod Cl (D5-1/2ns + KCl 10 Meq) 1,000 ml @ 70 mls/ hr [id number] IV Last administered on 02/10/17 10:20; Admin Dose 70 MLS/HR; Start 02/10/17 at 10:30 Mupirocin (Bactroban) 1 applic BID TOP ; Start 02/10/17 at 11:30; Stop at 21:01 FABIO SOSA M.D. Feb 10, 2017 12:54
--- NOTE | 2017-02-10 16:38 | HPN ---
Date/Time of Note Date/Time of Note DATE: 02/10/17 TIME: 16:37 Interval H&P Admission Note Pt. seen H&P reviewed: No system changes EDA BURKS MD Feb 10, 2017 16:38
[2017-02-10] MEDS ORDERED: PROPOFOL 20 ML ONE (16:58)
[2017-02-10] MEDS ORDERED: LIDOCAINE 2% (SDV) 5 ML INJ ONE (16:58)
[2017-02-10] MEDS ORDERED: HYDROmorphONE (0.2 MG/ML) 10ML SYG IV PRN ×3 (17:00)
[2017-02-10] MEDS ORDERED: ONDANSETRON 4 MG INJ IV PRN (17:00)
[2017-02-10] MEDS ORDERED: OXYCODONE/ACETAMINOPHEN (5/325) TAB PO PRN ×2 (17:00)
[2017-02-10] MEDS ORDERED: FENTAnyl 50 MCG/ML VIAL IV PRN ×3 (17:00)
[2017-02-10] MEDS ORDERED: MIDAZOLAM 1 MG/ML 2 ML INJ IV PRN (17:00)
[2017-02-10] MEDS ORDERED: DIPHENHYDRAMINE 50 MG INJ IV PRN (17:00)
[2017-02-10] MEDS ORDERED: hydrALAzine 20 MG INJ IV PRN (17:00)
[2017-02-10] MEDS ORDERED: EPHEDrine SULFATE 50 MG/5 ML SYG IV PRN (17:00)
[2017-02-10] MEDS ORDERED: METOCLOPRAMIDE 10 MG INJ IV PRN (17:00)
[2017-02-10] MEDS ORDERED: MEPERIDINE 25 MG INJ IV PRN (17:00)
[2017-02-10] MEDS ORDERED: LABETALOL HCL 20MG INJ IV PRN (17:00)
--- NOTE | 2017-02-10 17:13 | PN ---
Date/Time of Note Date/Time of Note DATE: 02/10/17 TIME: 17:12 Assessment/Plan VTE Prophylaxis VTE Prophylaxis Intervention: SCD's Lines/Catheters IV Catheter Type (from Nrs): [place] Urinary Cath still in place: No Assessment/Plan Assessment/Plan 1. Left radius fracture, failed reduction, need Gen Anesthesia for surgery 2. H/o CAD S/p CABG 3. HTN 4. DM II 5. HL Plan: KCl 20mEQ IV x today S/p Cardiology consult and lexiscan , ok to have surgery with appropriate surgical risks and complications Difficult peripheral access, will need PICC line for iV access SCD for DVT prophylaxis Subjective 24 Hr Interval Summary Free Text/Dictation K 2.9, BP stable,afebrile , cleared for surgery by cardiology Exam/Review of Systems Vital Signs Vitals Vital Signs Date Time Temp Pulse Resp B/P Pulse Ox O2 Delivery O2 Flow Rate FiO2 02/10/17 14:49 99.1 69 18 166/77 93 02/09/17 11:30 Room Air Intake and Output 02/09/17 02/09/17 02/10/17 15:00 23:00 07:00 Intake Total 0 ml 250 ml Balance 0 ml 250 ml Exam Constitutional: alert Respiratory: clear to auscultation, diminished breath sounds, normal air movement Cardiovascular: nl pulses, other (paced rthythm), regular rate and rhythm Gastrointestinal: non-tender, soft Musculoskeletal: nl extremities to inspection, nl gait and stance Extremities: normal pulses 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, nl mental status, nl speech, nl strength Results Result Diagram: 02/10/17 0802 02/10/17 1448 Results 24 hrs Laboratory Tests Test 02/09/17 18:36 02/09/17 18:40 02/09/17 20:39 02/10/17 01:01 Troponin I < 0.012 < 0.012 Bedside Glucose 113 188 Test 02/10/17 02:01 02/10/17 07:51 02/10/17 08:02 02/10/17 08:06 Bedside Glucose 152 143 White Blood Count 4.9 # Red Blood Count 4.06 L Hemoglobin 9.3 L Hematocrit 31.3 L Mean Corpuscular Volume 77.1 L Mean Corpuscular Hemoglobin 22.9 L Mean Corpuscular Hemoglobin Concent 29.7 L Red Cell Distribution Width 19.3 H Platelet Count 264 # Mean Platelet Volume 9.9 Neutrophils % 51.2 Lymphocytes % 36.1 Monocytes % 8.6 Eosinophils % 3.3 Basophils % 0.4 Nucleated Red Blood Cells % 0.0 Neutrophils # 2.5 Lymphocytes # 1.8 Monocytes # 0.4 Eosinophils # 0.2 Basophils # 0.0 Nucleated Red Blood Cells # 0.0 Sodium Level 145 H Potassium Level 2.9 *L Chloride Level 115 H Carbon Dioxide Level 27 Anion Gap 6 L Blood Urea Nitrogen 15 Creatinine 0.86 Glucose Level 124 Calcium Level 8.9 Total Bilirubin 0.1 L Direct Bilirubin 0.00 Indirect Bilirubin 0.1 Aspartate Amino Transf (AST/SGOT) 29 Alanine Aminotransferase (ALT/SGPT) 36 Alkaline Phosphatase 70 Total Protein 6.1 Albumin 3.0 L Globulin 3.10 Albumin/Globulin Ratio 0.96 Prothrombin Time 13.7 Prothrombin Time Ratio 1.1 INR International Normalized Ratio 1.05 Activated Partial Thromboplast Time 28.2 Test 02/10/17 11:59 02/10/17 14:48 Bedside Glucose 134 Potassium Level 4.4 Medications Medications Current Medications Albuterol (Ventolin Hfa) 2 puff Q4H PRN INH WHEEZING AND SOB; Start 02/08/17 at 18:30 Aspirin (Halfprin) 81 mg DAILY PO ; Start 02/09/17 at 09:00 Atorvastatin Calcium (Lipitor) 20 mg QHS PO Last administered on 02/09/17 20: 34; Admin Dose 20 MG; Start 02/08/17 at 21:00 Cholecalciferol (Vitamin D) 2,000 unit DAILY PO ; Start 02/09/17 at 09:00 Clonidine HCl (Catapres-Tts 3 Patch) 1 patch Q7D TRANSDERM Last administered on 02/10/17 09:22; Admin Dose 1 PATCH; Start 02/10/17 at 09:00 Docusate Sodium (Colace) 250 mg DAILY PO ; Start 02/09/17 at 09:00 Gabapentin (Neurontin) 600 mg TID PO Last administered on 02/09/17 20:33; Admin Dose 600 MG; Start 02/08/17 at 22:00 Lamotrigine (Lamictal) 100 mg DAILY PO Last administered on 02/09/17 08:17; Admin Dose 100 MG; Start 02/09/17 at 09:00 Memantine (Namenda) 10 mg DAILY PO ; Start 02/09/17 at 09:00 Oxybutynin Chloride (Ditropan Xl) 5 mg BID PO Last administered on 02/09/17 20 :33; Admin Dose 5 MG; Start 02/09/17 at 09:00 Pyridostigmine [place] (Mestinon) 60 mg BID PO Last administered on 02/09/17 20:53; Admin Dose 60 MG; Start 02/08/17 at 22:00 Trazodone HCl (Desyrel) 50 mg QHS PO Last administered on 02/09/17 20:32; Admin Dose 50 MG; Start 02/08/17 at 22:00 Acetaminophen/ Hydrocodone Bitart ([place] (5/325)) 1 tab Q6H PRN PO MODERATE PAIN LEVEL 4-6; Start 02/08/17 at 18:30 Docusate Sodium (Colace) 100 mg Q12H PRN PO CONSTIPATION; Start 02/08/17 at 18: 30 Magnesium Hydroxide (Milk Of Mag) 30 ml DAILY PRN PO CONSTIPATION; Start at 18:30 Bisacodyl (Dulcolax) 5 mg DAILY PRN PO CONSTIPATION; Start 02/08/17 at 18:30 Diagnostic Test (Pha) (Accu-Chek) 1 ea 02 XX ; Start 02/09/17 at 02:00 Miscellaneous Information 1 ea NOTE XX ; Start 02/08/17 at 20:00 Glucose (Glutose) 15 gm Q15M PRN PO DECREASED GLUCOSE; Start 02/08/17 at 20:00 Glucose (Glutose) 22.5 gm Q15M PRN PO DECREASED GLUCOSE; Start 02/08/17 at 20: 00 Dextrose (D50w Syringe) 25 ml Q15M PRN IV DECREASED GLUCOSE; Start 02/08/17 at 20:00 Dextrose (D50w Syringe) 50 ml Q15M PRN IV DECREASED GLUCOSE; Start 02/08/17 at 20:00 Glucagon (Glucagen) 1 mg Q15M PRN IM DECREASED GLUCOSE; Start 02/08/17 at 20:00 Glucose (Glutose) 15 gm Q15M PRN BUCCAL DECREASED GLUCOSE; Start 02/08/17 at 20 :00 Valsartan (Diovan) 160 mg BID PO Last administered on 02/09/17 20:33; Admin Dose 160 MG; Start 02/08/17 at 20:00 Hydralazine HCl (Apresoline) 10 mg Q4H PRN IV ELEVATED BLOOD PRESSURE Last administered on 02/10/17 04:11; Admin Dose 10 MG; Start 02/08/17 at 21:30 Labetalol HCl (Normodyne) 200 mg BID PO Last administered on 02/09/17 20:33; Admin Dose 200 MG; Start 02/09/17 at 21:00 Nitroglycerin (Nitroglycerin (Sl Tab) 0.4 Mg) 1 tab Q5M PRN SL ANGINA Last administered on 02/09/17 11:31; Admin Dose 1 TAB; Start 02/09/17 at 11:30 Morphine Sulfate 2 mg 2 mg Q3H PRN IV SEVERE PAIN LEVEL 7-10 Last administered on 02/10/17 15:38; Admin Dose 2 MG; Start 02/09/17 at 16:30 Potassium Chloride/Dextrose/ Sod Cl (D5-1/2ns + KCl 10 Meq) 1,000 ml @ 70 mls/ hr [id number] IV Last administered on 02/10/17 10:20; Admin Dose 70 MLS/HR; Start 02/10/17 at 10:30 Mupirocin (Bactroban) 1 applic BID TOP ; Start 02/10/17 at 11:30; Stop at 21:01 DEWEY ESCALANTE MD Feb 10, 2017 17:13
[2017-02-10] MEDS ORDERED: NACL 0.9% 3 ML SYG IV SCH (17:30)
--- NOTE | 2017-02-10 17:41 | SIPON ---
Date/Time of Note Date/Time of Note DATE: 02/10/17 TIME: 17:37 Operative Report Preoperative Diagnosis Yeager's fracture of Lt. wrist Postoperative Diagnosis same Operation/Procedure Performed closed reduction and cast immobilization Surgeon see signature line surgical assist none Anesthesia: general Estimated blood loss: none Transfusion Required none Specimen none Grafts/Implants none Complications none EDA BURKS MD Feb 10, 2017 17:41
--- NOTE | 2017-02-10 17:41 | SIPON ---
Date/Time of Note Date/Time of Note DATE: 02/10/17 TIME: 17:37 Operative Report Preoperative Diagnosis Yeager's fracture of Lt. wrist Postoperative Diagnosis same Operation/Procedure Performed closed reduction and cast immobilization Surgeon see signature line buyer assistant none Anesthesia: general Estimated blood loss: none Transfusion Required none Specimen none Grafts/Implants none Complications none EDA BURKS MD Feb 10, 2017 17:41
--- NOTE | 2017-02-10 17:41 | SIPON ---
Date/Time of Note Date/Time of Note DATE: 02/10/17 TIME: 17:37 Operative Report Preoperative Diagnosis Yeager's fracture of Lt. wrist Postoperative Diagnosis same Operation/Procedure Performed closed reduction and cast immobilization Surgeon see signature line assistant food service manager none Anesthesia: general Estimated blood loss: none Transfusion Required none Specimen none Grafts/Implants none Complications none EDA BURKS MD Feb 10, 2017 17:41
--- NOTE | 2017-02-10 18:57 | OPR ---
DATE OF OPERATION: 02/10/2017 PREOPERATIVE DIAGNOSIS: Yeager's fracture of the left wrist. POSTOPERATIVE DIAGNOSIS: Yeager's fracture of the left wrist. PROCEDURE PERFORMED: Closed reduction of the Yeager's fracture of the right wrist under general anesthesia and immobilization in a cast. ANESTHESIA: General anesthesia. SURGEON: Zenon Quintero MD PROCEDURE AND FINDINGS: Under anesthesia, the patient was placed in supine position upon the operating table. First the fracture of the left wrist was again examined under the fluoroscopic monitoring. Again the displaced Yeager's fracture was identified. After identifying the Yeager's fracture, manipulative reduction was carried out by putting dorsal outward pressure on the volarly displaced fracture fragment. After manipulation and distal reduction, the x-rays of the distal end of the left radius was again examined and additional manipulative reduction was carried out until an acceptable alignment could be achieved. After confirming the satisfactory alignment of the fracture the entire left upper extremity was immobilized in a short arm cast with the wrist in a flexed position in other to maintain the reduction. Final x-rays in the cast again revealed satisfactory alignment of the fracture. The patient tolerated the entire procedure very well and was sent to the recovery room in excellent condition. Dictated By: In Nicole Quintero MD /[email or web address]/esther /Document#: [id number]
[2017-02-10] MEDS: ATORVASTATIN 20 MG TAB PO SCH (20:30)
[2017-02-10] MEDS: traZODone 50 MG TAB PO SCH (20:31)
--- NOTE | 2017-02-10 20:35 | RADRPT ---
PROCEDURE: FLUOROSCOPIC GUIDANCE WITH X-RAY IMAGES DURING MEDICAL PROCEDURE. CLINICAL INDICATION: Left wrist closed reduction, casting, and immobilization. TECHNIQUE: 6 x-ray images were obtained during left wrist closed reduction, casting, and immobiliz ation.. COMPARISON: None available FINDINGS: 51.6 seconds of fluoroscopy time was utilized during the procedure. 6 x-ray images were obtained du ring the procedure in progress for guidance. Cumulative dose total is 1.35 mGy. The distal radius fr acture has been reduced into near anatomic alignment. Procedure was performed by Dr. Quintero. IMPRESSION: 1. Fluoroscopic guidance with x-ray images. RPTAT: XX .Tj Lyn MD, Date Time Electronically viewed and signed by .Tj Lyn MD, MD on 02/10/2017 20:34 .T/
--- NOTE | 2017-02-10 20:48 | RADRPT ---
PROCEDURE: XR LEFT WRIST. CLINICAL INDICATION: Fracture. TECHNIQUE: Three views of the left wrist were obtained. COMPARISON: 02/05/2017. FINDINGS: Since the prior exam, a cast has been placed across the comminuted fracture of the distal radius wit h mild displacement and volar angulation fracture fragments. The fracture is likely intra-articular dorsally. Slightly displaced fracture of the ulnar styloid process is seen. No other fracture is see n. No dislocation is seen. No other soft tissue abnormalities are seen. IMPRESSION: 1. Interval placement of a cast across the comminuted mildly displaced and angulated distal radius fracture. RPTAT: XX .Tj Lyn MD, MD Date Time Electronically viewed and signed by .Tj Lyn MD, on 02/10/2017 20:33 .T/
[2017-02-10] MEDS: HYDROCODONE/APAP (5/325) TAB PO PRN ×2 (22:41→22:45)
[2017-02-11] MEDS: morphine 2 MG INJ IV PRN (00:24)
[2017-02-11] MEDS: D5W-0.45 NACL + KCL 10 MEQ 1,000 ML IV SCH (00:48)
[2017-02-11 02:00] VITALS: BP 109/63; RESP 20
[2017-02-11] MEDS: ACCU-CHEK XX SCH (02:00)
[2017-02-11] MEDS: morphine 4 MG/ML VIAL IV PRN ×3 (02:28→10:26)
[2017-02-11 07:25] VITALS: BP 149/68; RESP 18
[2017-02-11] MEDS: INSULIN ASPART [NOVOLOG] 3 ML PEN SC SCH ×4 (08:00→20:30)
[2017-02-11] MEDS: DOCUSATE SODIUM 250 MG CAP PO SCH (08:31)
[2017-02-11] MEDS: LAMOTRIGINE 100 MG TAB PO SCH (08:31)
[2017-02-11] MEDS: VALSARTAN 160 MG TAB PO SCH ×2 (08:31→20:31)
[2017-02-11] MEDS: OXYBUTYNIN (XL) 5 MG TAB PO SCH ×2 (08:31→20:29)
[2017-02-11] MEDS: LABETALOL 200 MG TAB PO SCH ×2 (08:31→20:30)
[2017-02-11] MEDS: ASPIRIN (EC) 81 MG TAB PO SCH (08:31)
[2017-02-11] MEDS: CHOLECALCIFEROL 2,000 UNIT CAP PO SCH (08:32)
[2017-02-11] MEDS: PYRIDOSTIGMINE 60 MG TAB PO SCH ×2 (08:32→20:30)
[2017-02-11] MEDS: GABAPENTIN 300 MG CAP PO SCH ×3 (08:32→20:30)
[2017-02-11] MEDS: MUPIROCIN 2% 22 GM OINT TOP SCH ×2 (08:32→20:32)
[2017-02-11] MEDS: HYDROCODONE/APAP (5/325) TAB PO PRN ×3 (08:32→22:55)
[2017-02-11] MEDS: MEMANTINE 10 MG TAB PO SCH (08:32)
--- NOTE | 2017-02-11 12:47 | CONS ---
Date/Time of Note Date/Time of Note DATE: 02/11/17 TIME: 12:45 Assessment/Plan Assessment/Plan Additional Assessment/Plan Left radius fracture s/p surgery CAD S/p CABG, s/p PPM Hypertension Diabetes Hyperlipidemia hemodynamically stable has been ruled out for ACS stress test no ischemia Echo shows normal systolic function with mild pulmonary hypertension and trivial pericardial effusion she is cleared for surgery with low risk Replete Potassium Control valsartan and clonidine Continue ASA Continue Labetalol Continue Lipitor Continue Insulin Consultation Date/Type/Reason Admit Date/Time Feb 10, 2017 at 15:13 Initial Consult Date Exam/Review of Systems Vital Signs Vitals Vital Signs Date Time Temp Pulse Resp B/P Pulse Ox O2 Delivery O2 Flow Rate FiO2 02/11/17 11:08 98.9 02/11/17 07:25 68 18 149/68 96 02/10/17 18:16 Nasal Cannula 2.0 Intake and Output 02/10/17 02/10/17 02/11/17 15:00 23:00 07:00 Intake Total 110 ml 500 ml 500 ml Balance 110 ml 500 ml 500 ml Exam Constitutional: alert Head: atraumatic, normocephalic Respiratory: clear to auscultation Cardiovascular: regular rate and rhythm Gastrointestinal: nl liver, spleen, soft Extremities: normal pulses Results Result Diagram: 02/10/17 0802 02/10/17 1448 Results 24 hrs Laboratory Tests Test 02/10/17 14:48 02/10/17 16:20 02/10/17 20:49 02/11/17 07:52 Potassium Level 4.4 Bedside Glucose 120 122 126 Test 02/11/17 12:08 Bedside Glucose 142 Medications Medications Current Medications Albuterol (Ventolin Hfa) 2 puff Q4H PRN INH WHEEZING AND SOB; Start 02/08/17 at 18:30 Aspirin (Halfprin) 81 mg DAILY PO Last administered on 02/11/17 08:31; Admin Dose 81 MG; Start 02/09/17 at 09:00 Atorvastatin Calcium (Lipitor) 20 mg QHS PO Last administered on 02/10/17 20: 30; Admin Dose 20 MG; Start 02/08/17 at 21:00 Cholecalciferol (Vitamin D) 2,000 unit DAILY PO Last administered on 02/11/17 08:32; Admin Dose 2,000 UNIT; Start 02/09/17 at 09:00 Clonidine HCl (Catapres-Tts 3 Patch) 1 patch Q7D TRANSDERM Last administered on 02/10/17 09:22; Admin Dose 1 PATCH; Start 02/10/17 at 09:00 Docusate Sodium (Colace) 250 mg DAILY PO Last administered on 02/11/17 08:31; Admin Dose 250 MG; Start 02/09/17 at 09:00 Gabapentin (Neurontin) 600 mg TID PO Last administered on 02/11/17 08:32; Admin Dose 600 MG; Start 02/08/17 at 22:00 Lamotrigine (Lamictal) 100 mg DAILY PO Last administered on 02/11/17 08:31; Admin Dose 100 MG; Start 02/09/17 at 09:00 Memantine (Namenda) 10 mg DAILY PO Last administered on 02/11/17 08:32; Admin Dose 10 MG; Start 02/09/17 at 09:00 Oxybutynin Chloride (Ditropan Xl) 5 mg BID PO Last administered on 02/11/17 08 :31; Admin Dose 5 MG; Start 02/09/17 at 09:00 Pyridostigmine [place] (Mestinon) 60 mg BID PO Last administered on 02/11/17 08:32; Admin Dose 60 MG; Start 02/08/17 at 22:00 Trazodone HCl (Desyrel) 50 mg QHS PO Last administered on 02/10/17 20:31; Admin Dose 50 MG; Start 02/08/17 at 22:00 Acetaminophen/ Hydrocodone Bitart ([place] (5/325)) 1 tab Q6H PRN PO MODERATE PAIN LEVEL 4-6 Last administered on 02/11/17 08:32; Admin Dose 1 TAB; Start at 18:30 Docusate Sodium (Colace) 100 mg Q12H PRN PO CONSTIPATION; Start 02/08/17 at 18: 30 Magnesium Hydroxide (Milk Of Mag) 30 ml DAILY PRN PO CONSTIPATION; Start at 18:30 Bisacodyl (Dulcolax) 5 mg DAILY PRN PO CONSTIPATION; Start 02/08/17 at 18:30 Diagnostic Test (Pha) (Accu-Chek) 1 ea 02 XX ; Start 02/09/17 at 02:00 Miscellaneous Information 1 ea NOTE XX ; Start 02/08/17 at 20:00 Glucose (Glutose) 15 gm Q15M PRN PO DECREASED GLUCOSE; Start 02/08/17 at 20:00 Glucose (Glutose) 22.5 gm Q15M PRN PO DECREASED GLUCOSE; Start 02/08/17 at 20: 00 Dextrose (D50w Syringe) 25 ml Q15M PRN IV DECREASED GLUCOSE; Start 02/08/17 at 20:00 Dextrose (D50w Syringe) 50 ml Q15M PRN IV DECREASED GLUCOSE; Start 02/08/17 at 20:00 Glucagon (Glucagen) 1 mg Q15M PRN IM DECREASED GLUCOSE; Start 02/08/17 at 20:00 Glucose (Glutose) 15 gm Q15M PRN BUCCAL DECREASED GLUCOSE; Start 02/08/17 at 20 :00 Valsartan (Diovan) 160 mg BID PO Last administered on 02/11/17 08:31; Admin Dose 160 MG; Start 02/08/17 at 20:00 Hydralazine HCl (Apresoline) 10 mg Q4H PRN IV ELEVATED BLOOD PRESSURE Last administered on 02/10/17 04:11; Admin Dose 10 MG; Start 02/08/17 at 21:30 Labetalol HCl (Normodyne) 200 mg BID PO Last administered on 02/11/17 08:31; Admin Dose 200 MG; Start 02/09/17 at 21:00 Nitroglycerin (Nitroglycerin (Sl Tab) 0.4 Mg) 1 tab Q5M PRN SL ANGINA Last administered on 02/09/17 11:31; Admin Dose 1 TAB; Start 02/09/17 at 11:30 Morphine Sulfate (morphine) 2 mg Q3H PRN IV SEVERE PAIN LEVEL 7-10 Last administered on 02/11/17 00:24; Admin Dose 2 MG; Start 02/09/17 at 16:30 Mupirocin (Bactroban) 1 applic BID TOP Last administered on 02/11/17 08:32; Admin Dose 1 APPLIC; Start 02/10/17 at 11:30; Stop 02/16/17 at 21:01 Acetaminophen/ Hydrocodone Bitart ([place] (5/325)) 1 tab Q3H PRN PO PAIN; Start 02/10/17 at 17:30 Morphine Sulfate (morphine) 4 mg Q4H PRN IV PAIN Last administered on t 10:26; Admin Dose 4 MG; Start 02/11/17 at 02:30 FABIO SOSA M.D. Feb 11, 2017 12:47
[2017-02-11 14:06] VITALS: BP 122/58; RESP 18
[2017-02-11] MEDS: HYDROmorphONE 2 MG/ML SYG IV PRN ×2 (14:50→18:51)
[2017-02-11 20:00] VITALS: BP 109/58; RESP 18
[2017-02-11] MEDS: ATORVASTATIN 20 MG TAB PO SCH (20:29)
[2017-02-11] MEDS: traZODone 50 MG TAB PO SCH (20:30)
--- NOTE | 2017-02-11 22:06 | PN ---
Date/Time of Note Date/Time of Note DATE: 02/11/17 TIME: 22:03 Assessment/Plan VTE Prophylaxis VTE Prophylaxis Intervention: SCD's Lines/Catheters IV Catheter Type (from Nrsg): Saline Lock Urinary Cath still in place: No Assessment/Plan Assessment/Plan 1. Left radius fracture, failed reduction, s/p Closed reduction under general anesthesia 2. H/o CAD S/p CABG 3. HTN 4. DM II 5. HL Plan: s/p Closed reduction under general anesthesia , c/o pain and numbness in Hand area after cast requiring IV pain meds, IV morhpine not helping, switched to IV dilaudid ortho cleared for d/c but pt did not want to go home due to pain< still requiring IV pain meds SCD for DVT prophylaxis Subjective 24 Hr Interval Summary Free Text/Dictation pt still c/o left wrist pain, requiring IV pain meds around the clock Exam/Review of Systems Vital Signs Vitals Vital Signs Date Time Temp Pulse Resp B/P Pulse Ox O2 Delivery O2 Flow Rate FiO2 02/11/17 20:00 98.0 53 18 109/58 96 02/10/17 18:16 Nasal Cannula 2.0 Intake and Output 02/10/17 02/10/17 02/11/17 15:00 23:00 07:00 Intake Total 110 ml 500 ml 500 ml Balance 110 ml 500 ml 500 ml Exam Constitutional: alert Respiratory: clear to auscultation, diminished breath sounds, normal air movement Cardiovascular: nl pulses, other (paced rthythm), regular rate and rhythm Gastrointestinal: non-tender, soft Musculoskeletal: nl extremities to inspection, nl gait and stance Extremities: normal pulses 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, nl mental status, nl speech, nl strength Results Result Diagram: 02/10/17 0802 02/10/17 1448 Results 24 hrs Laboratory Tests Test 02/11/17 07:52 02/11/17 12:08 02/11/17 17:18 02/11/17 20:28 Bedside Glucose 126 142 164 134 Medications Medications Current Medications Albuterol (Ventolin Hfa) 2 puff Q4H PRN INH WHEEZING AND SOB; Start 02/08/17 at 18:30 Aspirin (Halfprin) 81 mg DAILY PO Last administered on 02/11/17t 08:31; Admin Dose 81 MG; Start 02/09/17 at 09:00 Atorvastatin Calcium (Lipitor) 20 mg QHS PO Last administered on 02/11/17 20: 29; Admin Dose 20 MG; Start 02/08/17 at 21:00 Cholecalciferol (Vitamin D) 2,000 unit DAILY PO Last administered on 02/11/17 08:32; Admin Dose 2,000 UNIT; Start 02/09/17 at 09:00 Clonidine HCl (Catapres-Tts 3 Patch) 1 patch Q7D TRANSDERM Last administered on 02/10/17 09:22; Admin Dose 1 PATCH; Start 02/10/17 at 09:00 Docusate Sodium (Colace) 250 mg DAILY PO Last administered on 02/11/17 08:31; Admin Dose 250 MG; Start 02/09/17 at 09:00 Gabapentin (Neurontin) 600 mg TID PO Last administered on 02/11/17 20:30; Admin Dose 600 MG; Start 02/08/17 at 22:00 Lamotrigine (Lamictal) 100 mg DAILY PO Last administered on 02/11/17 08:31; Admin Dose 100 MG; Start 02/09/17 at 09:00 Memantine (Namenda) 10 mg DAILY PO Last administered on 02/11/17 08:32; Admin Dose 10 MG; Start 02/09/17 at 09:00 Oxybutynin Chloride (Ditropan Xl) 5 mg BID PO Last administered on 02/11/17 20 :29; Admin Dose 5 MG; Start 02/09/17 at 09:00 Pyridostigmine [place] (Mestinon) 60 mg BID PO Last administered on 02/11/17 20:30; Admin Dose 60 MG; Start 02/08/17 at 22:00 Trazodone HCl (Desyrel) 50 mg QHS PO Last administered on 02/11/17 20:30; Admin Dose 50 MG; Start 02/08/17 at 22:00 Acetaminophen/ Hydrocodone Bitart ([place] (5/325)) 1 tab Q6H PRN PO MODERATE PAIN LEVEL 4-6 Last administered on 02/11/17 08:32; Admin Dose 1 TAB; Start at 18:30 Docusate Sodium (Colace) 100 mg Q12H PRN PO CONSTIPATION Last administered on 02/11/17 20:28; Admin Dose 100 MG; Start 02/08/17 at 18:30 Magnesium Hydroxide (Milk Of Mag) 30 ml DAILY PRN PO CONSTIPATION; Start at 18:30 Bisacodyl (Dulcolax) 5 mg DAILY PRN PO CONSTIPATION; Start 02/08/17 at 18:30 Diagnostic Test (Pha) (Accu-Chek) 1 ea 02 XX ; Start 02/09/17 at 02:00 Miscellaneous Information 1 ea NOTE XX ; Start 02/08/17 at 20:00 Glucose (Glutose) 15 gm Q15M PRN PO DECREASED GLUCOSE; Start 02/08/17 at 20:00 Glucose (Glutose) 22.5 gm Q15M PRN PO DECREASED GLUCOSE; Start 02/08/17 at 20: 00 Dextrose (D50w Syringe) 25 ml Q15M PRN IV DECREASED GLUCOSE; Start 02/08/17 at 20:00 Dextrose (D50w Syringe) 50 ml Q15M PRN IV DECREASED GLUCOSE; Start 02/08/17 at 20:00 Glucagon (Glucagen) 1 mg Q15M PRN IM DECREASED GLUCOSE; Start 02/08/17 at 20:00 Glucose (Glutose) 15 gm Q15M PRN BUCCAL DECREASED GLUCOSE; Start 02/08/17 at 20 :00 Valsartan (Diovan) 160 mg BID PO Last administered on 02/11/17 08:31; Admin Dose 160 MG; Start 02/08/17 at 20:00 Hydralazine HCl (Apresoline) 10 mg Q4H PRN IV ELEVATED BLOOD PRESSURE Last administered on 02/10/17 04:11; Admin Dose 10 MG; Start 02/08/17 at 21:30 Labetalol HCl (Normodyne) 200 mg BID PO Last administered on 02/11/17 08:31; Admin Dose 200 MG; Start 02/09/17 at 21:00 Nitroglycerin (Nitroglycerin (Sl Tab) 0.4 Mg) 1 tab Q5M PRN SL ANGINA Last administered on 02/09/17 11:31; Admin Dose 1 TAB; Start 02/09/17 at 11:30 Mupirocin (Bactroban) 1 applic BID TOP Last administered on 02/11/17 20:32; Admin Dose 1 APPLIC; Start 02/10/17 at 11:30; Stop 02/16/17 at 21:01 Acetaminophen/ Hydrocodone Bitart ([place] (5/325)) 1 tab Q3H PRN PO PAIN Last administered on 02/11/17 13:23; Admin Dose 1 TAB; Start 02/10/17 at 17:30 Morphine Sulfate (morphine) 4 mg Q4H PRN IV PAIN Last administered on 10:26; Admin Dose 4 MG; Start 02/11/17 at 02:30 DEWEY ESCALANTE MD Feb 11, 2017 22:06
[2017-02-12 02:00] VITALS: BP 151/69; RESP 17
[2017-02-12] MEDS: ACCU-CHEK XX SCH ×2 (02:00→22:14)
[2017-02-12] MEDS ORDERED: ACETAMINOPHEN 325 MG TAB ONE (03:27)
[2017-02-12] MEDS ORDERED: ACETAMINOPHEN 325 MG TAB PO PRN (03:30)
[2017-02-12 08:00] VITALS: BP 134/63; RESP 18
[2017-02-12] MEDS: INSULIN ASPART [NOVOLOG] 3 ML PEN SC SCH ×3 (08:07→22:15)
[2017-02-12] MEDS: CHOLECALCIFEROL 2,000 UNIT CAP PO SCH (08:19)
[2017-02-12] MEDS: LAMOTRIGINE 100 MG TAB PO SCH (08:20)
[2017-02-12] MEDS: OXYBUTYNIN (XL) 5 MG TAB PO SCH ×2 (08:20→22:15)
[2017-02-12] MEDS: GABAPENTIN 300 MG CAP PO SCH ×3 (08:20→22:15)
[2017-02-12] MEDS: LABETALOL 200 MG TAB PO SCH ×2 (08:20→22:15)
[2017-02-12] MEDS: ASPIRIN (EC) 81 MG TAB PO SCH (08:20)
[2017-02-12] MEDS: MEMANTINE 10 MG TAB PO SCH (08:20)
[2017-02-12] MEDS: PYRIDOSTIGMINE 60 MG TAB PO SCH ×2 (08:20→22:15)
[2017-02-12] MEDS: DOCUSATE SODIUM 250 MG CAP PO SCH (08:20)
[2017-02-12] MEDS: VALSARTAN 160 MG TAB PO SCH ×2 (08:21→22:15)
[2017-02-12] MEDS: MUPIROCIN 2% 22 GM OINT TOP SCH ×2 (10:57→22:15)
[2017-02-12] MEDS: HYDROCODONE/APAP (5/325) TAB PO PRN ×2 (11:38→23:02)
[2017-02-12] MEDS: NACL 0.9% 3 ML SYG IV SCH (11:38)
[2017-02-12 14:00] VITALS: BP 135/63; RESP 18
[2017-02-12] MEDS ORDERED: OXYCODONE/ACETAMINOPHEN (10/325) TAB PO PRN (16:00)
[2017-02-12] MEDS ORDERED: traMADol 50 MG TAB PO PRN (16:00)
--- NOTE | 2017-02-12 16:05 | PN ---
Date/Time of Note Date/Time of Note DATE: 02/12/17 TIME: 15:56 Assessment/Plan VTE Prophylaxis VTE Prophylaxis Intervention: SCD's Lines/Catheters IV Catheter Type (from Nrsg): Saline Lock Urinary Cath still in place: No Assessment/Plan Assessment/Plan 1. Left radius fracture, s/p Closed reduction under general anesthesia, still complain of pain, adjust pain medications, follow up with ortho 2. H/o CAD S/p CABG, no chest pain 3. HTN, controlled 4. DM, stable 5. Dyslipidemia, 6. Microcytic anemia, stable H/H Subjective 24 Hr Interval Summary Free Text/Dictation left arm pain, asks for more pain medications Exam/Review of Systems Vital Signs Vitals Vital Signs Date Time Temp Pulse Resp B/P Pulse Ox O2 Delivery O2 Flow Rate FiO2 02/12/17 14:00 99.0 66 18 135/63 94 02/10/17 18:16 Nasal Cannula 2.0 Intake and Output 02/11/17 02/11/17 02/12/17 15:00 23:00 07:00 Intake Total 300 ml 590 ml 480 ml Balance 300 ml 590 ml 480 ml Exam Constitutional: alert, oriented, well developed Psych: nl mood/affect, no complaints Head: atraumatic, normocephalic Eyes: EOMI, PERRL, nl conjunctiva, nl lids ENMT: mucosa pink and moist, nl external ears & nose, nl lips & teeth, nl nasal mucosa & septum Neck: non-tender, supple Respiratory: clear to auscultation, normal air movement, No congested cough, No crackles/rales, No diminished breath sounds, No intercostal retraction, No labored breathing, No other, No respirations, No tactile fremitus, No wheezing Cardiovascular: nl pulses, regular rate and rhythm, No S3, No S4, No bruits, No diastolic murmur, No edema, No gallop, No irregular rhythm, No jugular venous distention (JVD), No murmurs/extra sounds, No other, No rub, No systolic murmur Gastrointestinal: nl liver, spleen, non-tender, soft, No ascites, No bowel sounds, No distended, No firm, No hepatomegaly, No mass , No other, No rebound or guarding, No splenomegaly, No surgical scars, No tender Extremities: normal pulses, other (left forearm in cast) 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, nl mental status, nl speech, nl strength Skin: nl turgor Lymph: nl lymph nodes Results Result Diagram: 02/10/17 0802 02/12/17 05 Results 24 hrs Laboratory Tests Test 02/11/17 17:18 02/11/17 20:28 02/12/17 05:21 02/12/17 08:03 Bedside Glucose 164 134 147 Sodium Level 143 Potassium Level 3.8 Chloride Level 112 H Carbon Dioxide Level 28 Anion Gap 7 L Blood Urea Nitrogen 9 Creatinine 0.84 Glucose Level 132 Calcium Level 9.0 Test 02/12/17 11:41 Bedside Glucose 199 Medications Medications Current Medications Albuterol (Ventolin Hfa) 2 puff Q4H PRN INH WHEEZING AND SOB; Start 02/08/17 at 18:30 Aspirin (Halfprin) 81 mg DAILY PO Last administered on 02/12/17 08:20; Admin Dose 81 MG; Start 02/09/17 at 09:00 Atorvastatin Calcium (Lipitor) 20 mg QHS PO Last administered on 02/11/17 20: 29; Admin Dose 20 MG; Start 02/08/17 at 21:00 Cholecalciferol (Vitamin D) 2,000 unit DAILY PO Last administered on 02/12/17 08:19; Admin Dose 2,000 UNIT; Start 02/09/17 at 09:00 Clonidine HCl (Catapres-Tts 3 Patch) 1 patch Q7D TRANSDERM Last administered on 02/10/17 09:22; Admin Dose 1 PATCH; Start 02/10/17 at 09:00 Docusate Sodium (Colace) 250 mg DAILY PO Last administered on 02/12/17 08:20; Admin Dose 250 MG; Start 02/09/17 at 09:00 Gabapentin (Neurontin) 600 mg TID PO Last administered on 02/12/17 12:44; Admin Dose 600 MG; Start 02/08/17 at 22:00 Lamotrigine (Lamictal) 100 mg DAILY PO Last administered on 02/12/17 08:20; Admin Dose 100 MG; Start 02/09/17 at 09:00 Memantine (Namenda) 10 mg DAILY PO Last administered on 02/12/17 08:20; Admin Dose 10 MG; Start 02/09/17 at 09:00 Oxybutynin Chloride (Ditropan Xl) 5 mg BID PO Last administered on 02/12/17 08 :20; Admin Dose 5 MG; Start 02/09/17 at 09:00 Pyridostigmine [place] (Mestinon) 60 mg BID PO Last administered on 02/12/17 08:20; Admin Dose 60 MG; Start 02/08/17 at 22:00 Trazodone HCl (Desyrel) 50 mg QHS PO Last administered on 02/11/17 20:30; Admin Dose 50 MG; Start 02/08/17 at 22:00 Acetaminophen/ Hydrocodone Bitart ([place] (5/325)) 1 tab Q6H PRN PO MODERATE PAIN LEVEL 4-6 Last administered on 02/11/17 22:55; Admin Dose 1 TAB; Start at 18:30 Docusate Sodium (Colace) 100 mg Q12H PRN PO CONSTIPATION Last administered on 02/11/17 20:28; Admin Dose 100 MG; Start 02/08/17 at 18:30 Magnesium Hydroxide (Milk Of Mag) 30 ml DAILY PRN PO CONSTIPATION; Start at 18:30 Bisacodyl (Dulcolax) 5 mg DAILY PRN PO CONSTIPATION; Start 02/08/17 at 18:30 Diagnostic Test (Pha) (Accu-Chek) 1 ea 02 XX ; Start 02/09/17 at 02:00 Miscellaneous Information 1 ea NOTE XX ; Start 02/08/17 at 20:00 Glucose (Glutose) 15 gm Q15M PRN PO DECREASED GLUCOSE; Start 02/08/17 at 20:00 Glucose (Glutose) 22.5 gm Q15M PRN PO DECREASED GLUCOSE; Start 02/08/17 at 20: 00 Dextrose (D50w Syringe) 25 ml Q15M PRN IV DECREASED GLUCOSE; Start 02/08/17 at 20:00 Dextrose (D50w Syringe) 50 ml Q15M PRN IV DECREASED GLUCOSE; Start 02/08/17 at 20:00 Glucagon (Glucagen) 1 mg Q15M PRN IM DECREASED GLUCOSE; Start 02/08/17 at 20:00 Glucose (Glutose) 15 gm Q15M PRN BUCCAL DECREASED GLUCOSE; Start 02/08/17 at 20 :00 Valsartan (Diovan) 160 mg BID PO Last administered on 02/12/17 08:21; Admin Dose 160 MG; Start 02/08/17 at 20:00 Hydralazine HCl (Apresoline) 10 mg Q4H PRN IV ELEVATED BLOOD PRESSURE Last administered on 02/10/17 04:11; Admin Dose 10 MG; Start 02/08/17 at 21:30 Labetalol HCl (Normodyne) 200 mg BID PO Last administered on 02/12/17 08:20; Admin Dose 200 MG; Start 02/09/17 at 21:00 Nitroglycerin (Nitroglycerin (Sl Tab) 0.4 Mg) 1 tab Q5M PRN SL ANGINA Last administered on 02/09/17 11:31; Admin Dose 1 TAB; Start 02/09/17 at 11:30 Mupirocin (Bactroban) 1 applic BID TOP Last administered on 02/12/17 10:57; Admin Dose 1 APPLIC; Start 02/10/17 at 11:30; Stop 02/16/17 at 21:01 Acetaminophen/ Hydrocodone Bitart ([place] (5/325)) 1 tab Q3H PRN PO PAIN Last administered on 02/12/17 11:38; Admin Dose 1 TAB; Start 02/10/17 at 17:30 Morphine Sulfate (morphine) 4 mg Q4H PRN IV PAIN Last administered on 10:26; Admin Dose 4 MG; Start 02/11/17 at 02:30 Acetaminophen (Tylenol Tab) 650 mg Q6H PRN PO PAIN AND OR ELEVATED TEMP Last administered on 02/12/17 03:33; Admin Dose 650 MG; Start 02/12/17 at 03:30 SPEEDY MURRELL MD Feb 12, 2017 16:05
[2017-02-12 19:53] VITALS: BP 184/79; RESP 18
[2017-02-12] MEDS: traZODone 50 MG TAB PO SCH (22:15)
[2017-02-12] MEDS: ATORVASTATIN 20 MG TAB PO SCH (22:15)
[2017-02-12] MEDS: morphine 4 MG/ML VIAL IV PRN (23:03)
--- NOTE | 2017-02-12 23:20 | CONS ---
Date/Time of Note Date/Time of Note DATE: 02/12/17 TIME: 23:13 Assessment/Plan Assessment/Plan Chief Complaint/Hosp Course IMPRESSION: 1. Preoperative evaluation prior to wrist surgery in a patient with a history of coronary artery bypass graft multiple years prior and complaining of chest pain and EKG abnormalities. Now post-op s/p closed reduction 2. Coronary artery disease, status post coronary artery bypass graft surgery multiple years prior per patient, almost 30 years if this is true, unclear if patient is a reliable historian. It would have been a very early age to have had a bypass surgery. No further procedures since then.-Now s/p lexiscan 02/09 with no ischemia/NL EF 3. Abnormal electrocardiogram with inferior and lateral T-wave inversions. 4. Hypertension, uncontrolled. 5. Diabetes mellitus. 6. Dyslipidemia. 7. Myasthenia gravis. 8. Wrist fracture.-s/p closed reduction Recc: -Continue clonidine TTS/Labetelol/Diovan -Continue asa/statin -Pain control Problems: Consultation Date/Type/Reason Admit Date/Time Feb 10, 2017 at 15:13 Initial Consult Date 02/09/2017 Type of Consultation: Cardiology Reason for Consultation Pre-op Referring Provider: ONEIL JONES Exam/Review of Systems Vital Signs Vitals Vital Signs Date Time Temp Pulse Resp B/P Pulse Ox O2 Delivery O2 Flow Rate FiO2 02/12/17 14:00 99.0 66 18 135/63 94 02/10/17 18:16 Nasal Cannula 2.0 Intake and Output 02/11/17 02/11/17 02/12/17 15:00 23:00 07:00 Intake Total 300 ml 590 ml 480 ml Balance 300 ml 590 ml 480 ml Exam Review of Systems: CONSTITUTIONAL: No fevers, chills. PULMONARY: No sob CARDIOVASCULAR: No chest pain/palpitations GASTROINTESTINAL: No nausea/vomiting. GENITOURINARY: No hematuria/dysuria. MUSCULOSKELETAL: pain in arm PSYCHIATRIC: The patient denies depression. NEUROLOGIC: No weakness Constitutional: alert Psych: no complaints Head: normocephalic ENMT: mucosa pink and moist Neck: jvd (9 cm water), supple Respiratory: clear to auscultation Cardiovascular: regular rate and rhythm Gastrointestinal: soft Musculoskeletal: other (arm in cast) Extremities: edema (none) Neurological: other (no focal deficits) Results Result Diagram: 02/10/17 0802 02/12/17 0521 Results 24 hrs Laboratory Tests Test 02/12/17 05:21 02/12/17 08:03 02/12/17 11:41 02/12/17 16:36 Sodium Level 143 Potassium Level 3.8 Chloride Level 112 H Carbon Dioxide Level 28 Anion Gap 7 L Blood Urea Nitrogen 9 Creatinine 0.84 Glucose Level 132 Calcium Level 9.0 Bedside Glucose 147 199 163 Test 02/12/17 17:25 02/12/17 22:10 Bedside Glucose 157 128 Medications Medications Current Medications Albuterol (Ventolin Hfa) 2 puff Q4H PRN INH WHEEZING AND SOB; Start 02/08/17 at 18:30 Aspirin (Halfprin) 81 mg DAILY PO Last administered on 02/12/17 08:20; Admin Dose 81 MG; Start 02/09/17 at 09:00 Atorvastatin Calcium (Lipitor) 20 mg QHS PO Last administered on 02/12/17 22: 15; Admin Dose 20 MG; Start 02/08/17 at 21:00 Cholecalciferol (Vitamin D) 2,000 unit DAILY PO Last administered on 02/12/17 08:19; Admin Dose 2,000 UNIT; Start 02/09/17 at 09:00 Clonidine HCl (Catapres-Tts 3 Patch) 1 patch Q7D TRANSDERM Last administered on 02/10/17 09:22; Admin Dose 1 PATCH; Start 02/10/17 at 09:00 Docusate Sodium (Colace) 250 mg DAILY PO Last administered on 02/12/17 08:20; Admin Dose 250 MG; Start 02/09/17 at 09:00 Gabapentin (Neurontin) 600 mg TID PO Last administered on 02/12/17 22:15; Admin Dose 600 MG; Start 02/08/17 at 22:00 Lamotrigine (Lamictal) 100 mg DAILY PO Last administered on 02/12/17 08:20; Admin Dose 100 MG; Start 02/09/17 at 09:00 Memantine (Namenda) 10 mg DAILY PO Last administered on 02/12/17 08:20; Admin Dose 10 MG; Start 02/09/17 at 09:00 Oxybutynin Chloride (Ditropan Xl) 5 mg BID PO Last administered on 02/12/17 22 :15; Admin Dose 5 MG; Start 02/09/17 at 09:00 Pyridostigmine [place] (Mestinon) 60 mg BID PO Last administered on 02/12/17 22:15; Admin Dose 60 MG; Start 02/08/17 at 22:00 Trazodone HCl (Desyrel) 50 mg QHS PO Last administered on 02/12/17 22:15; Admin Dose 50 MG; Start 02/08/17 at 22:00 Acetaminophen/ Hydrocodone Bitart ([place] (5/325)) 1 tab Q6H PRN PO MODERATE PAIN LEVEL 4-6 Last administered on 02/12/17 23:02; Admin Dose 1 TAB; Start at 18:30 Docusate Sodium (Colace) 100 mg Q12H PRN PO CONSTIPATION Last administered on 02/11/17 20:28; Admin Dose 100 MG; Start 02/08/17 at 18:30 Magnesium Hydroxide (Milk Of Mag) 30 ml DAILY PRN PO CONSTIPATION; Start at 18:30 Bisacodyl (Dulcolax) 5 mg DAILY PRN PO CONSTIPATION; Start 02/08/17 at 18:30 Diagnostic Test (Pha) (Accu-Chek) 1 ea 02 XX ; Start 02/09/17 at 02:00 Miscellaneous Information 1 ea NOTE XX ; Start 02/08/17 at 20:00 Glucose (Glutose) 15 gm Q15M PRN PO DECREASED GLUCOSE; Start 02/08/17 at 20:00 Glucose (Glutose) 22.5 gm Q15M PRN PO DECREASED GLUCOSE; Start 02/08/17 at 20: 00 Dextrose (D50w Syringe) 25 ml Q15M PRN IV DECREASED GLUCOSE; Start 02/08/17 at 20:00 Dextrose (D50w Syringe) 50 ml Q15M PRN IV DECREASED GLUCOSE; Start 02/08/17 at 20:00 Glucagon (Glucagen) 1 mg Q15M PRN IM DECREASED GLUCOSE; Start 02/08/17 at 20:00 Glucose (Glutose) 15 gm Q15M PRN BUCCAL DECREASED GLUCOSE; Start 02/08/17 at 20 :00 Valsartan (Diovan) 160 mg BID PO Last administered on 02/12/17 22:15; Admin Dose 160 MG; Start 02/08/17 at 20:00 Hydralazine HCl (Apresoline) 10 mg Q4H PRN IV ELEVATED BLOOD PRESSURE Last administered on 02/10/17 04:11; Admin Dose 10 MG; Start 02/08/17 at 21:30 Labetalol HCl (Normodyne) 200 mg BID PO Last administered on 02/12/17 22:15; Admin Dose 200 MG; Start 02/09/17 at 21:00 Nitroglycerin (Nitroglycerin (Sl Tab) 0.4 Mg) 1 tab Q5M PRN SL ANGINA Last administered on 02/09/17 11:31; Admin Dose 1 TAB; Start 02/09/17 at 11:30 Mupirocin (Bactroban) 1 applic BID TOP Last administered on 02/12/17 22:15; Admin Dose 1 APPLIC; Start 02/10/17 at 11:30; Stop 02/16/17 at 21:01 Morphine Sulfate (morphine) 4 mg Q4H PRN IV PAIN Last administered on 23:03; Admin Dose 4 MG; Start 02/11/17 at 02:30 Acetaminophen (Tylenol Tab) 650 mg Q6H PRN PO PAIN AND OR ELEVATED TEMP Last administered on 02/12/17 03:33; Admin Dose 650 MG; Start 02/12/17 at 03:30 Oxycodone/ Acetaminophen (Endocet (10/ 325)) 1 tab Q4H PRN PO PAIN; Start 02/12 at 16:00 Tramadol HCl (Ultram) 50 mg Q6H PRN PO pain Last administered on 02/12/17 16: 22; Admin Dose 50 MG; Start 02/12/17 at 16:00 KAREN KAHN Feb 12, 2017 23:19
[2017-02-13] MEDS ORDERED: ZOLPIDEM 5 MG TAB PO PRN
[2017-02-13 02:15] VITALS: BP 192/84; RESP 18
[2017-02-13] MEDS: morphine 4 MG/ML VIAL IV PRN ×4 (02:16→17:22)
[2017-02-13] MEDS: hydrALAzine 20 MG INJ IV PRN (02:35)
[2017-02-13] MEDS: HYDROCODONE/APAP (5/325) TAB PO PRN (05:18)
[2017-02-13] MEDS ORDERED: LABETALOL 100 MG TAB PO ONE (05:30)
[2017-02-13] MEDS ORDERED: hydrALAzine 20 MG INJ IV ONE (05:30)
[2017-02-13 08:03] VITALS: BP 119/74; RESP 16
[2017-02-13 08:12] VITALS: BP 183/83; RESP 19
[2017-02-13] MEDS: INSULIN ASPART [NOVOLOG] 3 ML PEN SC SCH ×3 (08:21→17:24)
[2017-02-13] MEDS: DOCUSATE SODIUM 250 MG CAP PO SCH (08:21)
[2017-02-13] MEDS: CHOLECALCIFEROL 2,000 UNIT CAP PO SCH (08:21)
[2017-02-13] MEDS: ASPIRIN (EC) 81 MG TAB PO SCH (08:21)
[2017-02-13] MEDS: LAMOTRIGINE 100 MG TAB PO SCH (08:21)
[2017-02-13] MEDS: OXYBUTYNIN (XL) 5 MG TAB PO SCH (08:22)
[2017-02-13] MEDS: GABAPENTIN 300 MG CAP PO SCH ×2 (08:22→13:20)
[2017-02-13] MEDS: NACL 0.9% 3 ML SYG IV SCH (08:22)
[2017-02-13] MEDS: VALSARTAN 160 MG TAB PO SCH (08:22)
[2017-02-13] MEDS: PYRIDOSTIGMINE 60 MG TAB PO SCH (08:22)
[2017-02-13] MEDS: MEMANTINE 10 MG TAB PO SCH (08:46)
[2017-02-13] MEDS: LABETALOL 100 MG TAB PO SCH ×2 (08:47→13:20)
[2017-02-13] MEDS: MUPIROCIN 2% 22 GM OINT TOP SCH (08:50)
[2017-02-13 09:37] VITALS: BP 146/73; PULSE 70
--- NOTE | 2017-02-13 10:05 | CONS ---
Date/Time of Note Date/Time of Note DATE: 02/13/17 TIME: 10:03 Assessment/Plan Assessment/Plan Additional Assessment/Plan 1. Preoperative evaluation prior to wrist surgery in a patient with a history of coronary artery bypass graft multiple years prior and complaining of chest pain and EKG abnormalities. Now post-op s/p closed reduction - tolerated procedure wel - pain controlled. 2. Coronary artery disease, status post coronary artery bypass graft surgery multiple years prior per patient, almost 30 years if this is true, unclear if patient is a reliable historian. It would have been a very early age to have had a bypass surgery. No further procedures since then.-Now s/p lexiscan 02/09 with no ischemia/NL EF- mik CP now. 3. Abnormal electrocardiogram with inferior and lateral T-wave inversions. 4. Hypertension - will adjust Rx as needed. 5. Diabetes mellitus - on meds, con't to keep euglycemic. 6. Dyslipidemia. 7. Myasthenia gravis. 8. Wrist fracture.-s/p closed reduction Consultation Date/Type/Reason Admit Date/Time Feb 10, 2017 at 15:13 Initial Consult Date Type of Consultation: Cardiology Referring Provider: ONEIL JONES 24 HR Interval Summary Free Text/Dictation Post op - tolerated procedure well - off tele - no CP, palpitations noted ROS: No fever, no chills, no nausea, no vomiting, no diarrhea/constipation No recent weight changes No chest pain, no PND, no orthopnea No dizziness, blurred vision No thirst, no heat or cold intolerance Exam/Review of Systems Vital Signs Vitals Vital Signs Date Time Temp Pulse Resp B/P Pulse Ox O2 Delivery O2 Flow Rate FiO2 02/13/17 09:37 70 146/73 02/13/17 08:12 98.5 19 93 02/10/17 18:16 Nasal Cannula 2.0 Intake and Output 02/12/17 02/12/17 02/13/17 14:59 22:59 06:59 Intake Total 480 ml Balance 480 ml Exam General: WN/WD/NAD, AOx 3 HEENT: Unicetric/atraumatic/EOMI (follow commands) NECK: JVD elevated, no thyromegaly Lymph: no lymphadenopathy HEART: regular with no S3, II/ systolic murmur at apex LUNGS: Coarse sounds ABD: soft, NT, ND, +BS : Intact Neuro: non focal SKIN: chronic changes EXT: trace edema, post op Results Result Diagram: 02/13/17 0502/12/17 0521 Results 24 hrs Laboratory Tests Test 02/12/17 11:41 02/12/17 16:36 02/12/17 17:25 02/12/17 22:10 Bedside Glucose 199 163 157 128 Test 02/13/17 05:23 02/13/17 08:19 White Blood Count 4.9 Red Blood Count 3.83 L Hemoglobin 9.0 L Hematocrit 29.8 L Mean Corpuscular Volume 77.8 L Mean Corpuscular Hemoglobin 23.5 L Mean Corpuscular Hemoglobin Concent 30.2 L Red Cell Distribution Width 18.7 H Platelet Count 235 Mean Platelet Volume 10.2 Neutrophils % 48.9 Lymphocytes % 37.7 Monocytes % 8.9 Eosinophils % 3.5 Basophils % 0.4 Nucleated Red Blood Cells % 0.0 Neutrophils # 2.4 Lymphocytes # 1.8 Monocytes # 0.4 Eosinophils # 0.2 Basophils # 0.0 Nucleated Red Blood Cells # 0.0 Iron Level 43 Total Iron Binding Capacity 398 Percent Iron Saturation 11 L Ferritin 23.0 Bedside Glucose 144 Medications Medications Current Medications Albuterol (Ventolin Hfa) 2 puff Q4H PRN INH WHEEZING AND SOB; Start 02/08/17 at 18:30 Aspirin (Halfprin) 81 mg DAILY PO Last administered on 02/13/17 08:21; Admin Dose 81 MG; Start 02/09/17 at 09:00 Atorvastatin Calcium (Lipitor) 20 mg QHS PO Last administered on 02/12/17 22: 15; Admin Dose 20 MG; Start 02/08/17 at 21:00 Cholecalciferol (Vitamin D) 2,000 unit DAILY PO Last administered on 02/13/17 08:21; Admin Dose 2,000 UNIT; Start 02/09/17 at 09:00 Clonidine HCl (Catapres-Tts 3 Patch) 1 patch Q7D TRANSDERM Last administered on 02/10/17 09:22; Admin Dose 1 PATCH; Start 02/10/17 at 09:00 Docusate Sodium (Colace) 250 mg DAILY PO Last administered on 02/13/17 08:21; Admin Dose 250 MG; Start 02/09/17 at 09:00 Gabapentin (Neurontin) 600 mg TID PO Last administered on 02/13/17 08:22; Admin Dose 600 MG; Start 02/08/17 at 22:00 Lamotrigine (Lamictal) 100 mg DAILY PO Last administered on 02/13/17 08:21; Admin Dose 100 MG; Start 02/09/17 at 09:00 Memantine (Namenda) 10 mg DAILY PO Last administered on 02/13/17 08:46; Admin Dose 10 MG; Start 02/09/17 at 09:00 Oxybutynin Chloride (Ditropan Xl) 5 mg BID PO Last administered on 02/13/17 08 :22; Admin Dose 5 MG; Start 02/09/17 at 09:00 Pyridostigmine [place] (Mestinon) 60 mg BID PO Last administered on 02/13/17 08:22; Admin Dose 60 MG; Start 02/08/17 at 22:00 Trazodone HCl (Desyrel) 50 mg QHS PO Last administered on 02/12/17 22:15; Admin Dose 50 MG; Start 02/08/17 at 22:00 Acetaminophen/ Hydrocodone Bitart ([place] (5/325)) 1 tab Q6H PRN PO MODERATE PAIN LEVEL 4-6 Last administered on 02/13/17 05:18; Admin Dose 1 TAB; Start at 18:30 Docusate Sodium (Colace) 100 mg Q12H PRN PO CONSTIPATION Last administered on 02/11/17 20:28; Admin Dose 100 MG; Start 02/08/17 at 18:30 Magnesium Hydroxide (Milk Of Mag) 30 ml DAILY PRN PO CONSTIPATION Last administered on 02/13/17 02:16; Admin Dose 30 ML; Start 02/08/17 at 18:30 Bisacodyl (Dulcolax) 5 mg DAILY PRN PO CONSTIPATION Last administered on 08:22; Admin Dose 5 MG; Start 02/08/17 at 18:30 Diagnostic Test (Pha) (Accu-Chek) 1 ea 02 XX ; Start 02/09/17 at 02:00 Miscellaneous Information 1 ea NOTE XX ; Start 02/08/17 at 20:00 Glucose (Glutose) 15 gm Q15M PRN PO DECREASED GLUCOSE; Start 02/08/17 at 20:00 Glucose (Glutose) 22.5 gm Q15M PRN PO DECREASED GLUCOSE; Start 02/08/17 at 20: 00 Dextrose (D50w Syringe) 25 ml Q15M PRN IV DECREASED GLUCOSE; Start 02/08/17 at 20:00 Dextrose (D50w Syringe) 50 ml Q15M PRN IV DECREASED GLUCOSE; Start 02/08/17 at 20:00 Glucagon (Glucagen) 1 mg Q15M PRN IM DECREASED GLUCOSE; Start 02/08/17 at 20:00 Glucose (Glutose) 15 gm Q15M PRN BUCCAL DECREASED GLUCOSE; Start 02/08/17 at 20 :00 Valsartan (Diovan) 160 mg BID PO Last administered on 02/13/17 08:22; Admin Dose 160 MG; Start 02/08/17 at 20:00 Hydralazine HCl (Apresoline) 10 mg Q4H PRN IV ELEVATED BLOOD PRESSURE Last administered on 02/13/17 02:35; Admin Dose 10 MG; Start 02/08/17 at 21:30 Nitroglycerin (Nitroglycerin (Sl Tab) 0.4 Mg) 1 tab Q5M PRN SL ANGINA Last administered on 02/09/17 11:31; Admin Dose 1 TAB; Start 02/09/17 at 11:30 Mupirocin (Bactroban) 1 applic BID TOP Last administered on 02/13/17 08:50; Admin Dose 1 APPLIC; Start 02/10/17 at 11:30; Stop 02/16/17 at 21:01 Morphine Sulfate (morphine) 4 mg Q4H PRN IV PAIN Last administered on 08:21; Admin Dose 4 MG; Start 02/11/17 at 02:30 Acetaminophen (Tylenol Tab) 650 mg Q6H PRN PO PAIN AND OR ELEVATED TEMP Last administered on 02/12/17 03:33; Admin Dose 650 MG; Start 02/12/17 at 03:30 Oxycodone/ Acetaminophen (Endocet (10/ 325)) 1 tab Q4H PRN PO PAIN; Start 02/12 at 16:00 Tramadol HCl (Ultram) 50 mg Q6H PRN PO pain Last administered on 02/12/17 16: 22; Admin Dose 50 MG; Start 02/12/17 at 16:00 Labetalol HCl (Normodyne) 200 mg TID PO Last administered on 02/13/17t 08:47; Admin Dose 200 MG; Start 02/13/17 at 09:00 VAHE OWENS MD Feb 13, 2017 10:05
--- NOTE | 2017-02-13 14:51 | RADRPT ---
Vent Rate: 60 bpm RR Interval: 0 msec [place] Interval: 158 msec QRS Duration: 86 msec QT Interval: 442 msec QTC Interval: 442 msec P-R-T [place]: 57 - 67 - -81 degrees Electronic atrial pacemaker Left ventricular hypertrophy with repolarization abnormality Abnormal ECG Electronically Signed By: Silverio Martinez [id number]
--- NOTE | 2017-02-13 14:51 | RADRPT ---
Vent Rate: 60 bpm RR Interval: 0 msec [place] Interval: 158 msec QRS Duration: 86 msec QT Interval: 442 msec QTC Interval: 442 msec P-R-T [place]: 57 - 67 - -81 degrees Electronic atrial pacemaker Left ventricular hypertrophy with repolarization abnormality Abnormal ECG Electronically Signed By: Silverio Martinez [id number]
--- NOTE | 2017-02-13 14:51 | RADRPT ---
Vent Rate: 60 bpm RR Interval: 0 msec [place] Interval: 158 msec QRS Duration: 86 msec QT Interval: 442 msec QTC Interval: 442 msec P-R-T [place]: 57 - 67 - -81 degrees Electronic atrial pacemaker Left ventricular hypertrophy with repolarization abnormality Abnormal ECG Electronically Signed By: Silverio Martinez [id number]
[2017-02-13] MEDS ORDERED: OXYC-431 PO (15:03)
--- NOTE | 2017-02-13 15:12 | DS ---
Date/Time of Note Date/Time of Note DATE: 02/13/17 TIME: 15:04 Discharge Summary Admission/Discharge Info Admit Date/Time Feb 10, 2017 at 15:13 Discharge Date/Time Discharge Diagnosis 1. Left radius fracture, s/p Closed reduction under general anesthesia, stable , follow up with Dr. Quintero 2. CAD S/p CABG, no chest pain, follow up with cardiology 3. HTN, controlled 4. DM, stable 5. Dyslipidemia, on statin 6. Microcytic anemia, stable H/H Patient Condition: Stable Procedures Closed reduction of the Yeager's fracture of the right wrist under general anesthesia and immobilization in a cast. Hospital Course 66 yo F with DM, CAD sp CABG and HTN was referred to admission for left radius fracture surgery that she needed preop clearance. Cardiology preoperation cleared was done with an unremarkable echocardiography and stress thallium test. Closed reduction of left radius fracture under general anesthesia was done on 02/10/2017 without complication. Pain is better controlled. Patient will follow up with Dr. Quintero outpatient. Home Meds Active Scripts Oxycodone HCl/Acetaminophen (Oxycodone-Acetaminophen 10-325) 1 Each Tablet, 1 TAB PO Q4H Y for PAIN for 30 Days, TAB Prov:SPEEDY MURRELL MD 02/13/17 Reported Medications Atorvastatin Calcium* (Atorvastatin Calcium*) 20 Mg Tablet, 20 MG PO QHS, #30 TAB 02/08/17 Insulin Detemir (Levemir Flextouch) 100 Unit/1 Ml Insuln.pen, 24 UNIT SQ QPM 02/08/17 Diltiazem Hcl* (Cardizem*) 30 Mg Tablet, 30 MG PO DAILY, #60 TAB 02/08/17 Valsartan* (Diovan*) 160 Mg Tablet, 160 MG PO BID, TAB HOLD IF BP<100 02/08/17 Clonidine Patch (CLONIDINE PATCH) 0.3 Mg/24 Hr Patch, 1 PATCH.WK TD Q7D, #4 PATCH.WK 02/08/17 Linaclotide (LINZESS) 145 Mcg Capsule, 145 MCG PO DAILY, #30 CAP 02/08/17 Memantine* (Namenda*) 10 Mg Tablet, 10 MG PO DAILY, #30 TAB 02/08/17 Insulin Aspart* (Novolog Insulin Pen*) 100 Unit/Ml Soln, 0 SC .SLIDING SCALE AC , EA TAKE DIRECTED PER SLIDING SCALE 02/08/17 Trazodone Hcl* (Trazodone Hcl*) 50 Mg Tablet, 50 MG PO QHS, #30 TAB 02/08/17 Pyridostigmine [place]* (Pyridostigmine [place]*) 60 Mg Tablet, 60 MG PO BID, TAB 02/08/17 Docusate Sodium* (Colace*) 250 Mg Capsule, 250 MG PO DAILY, #30 CAP 02/08/17 Metformin Hcl* (Metformin Hcl*) 500 Mg Tablet, 500 MG PO WITH BREAKFAST DINNE, # 60 TAB 02/08/17 Albuterol Sulfate* (Proair HFA*) 8.5 Gm Hfa.aer.ad, 2 PUFF INH Q4H Y for WHEEZING AND SOB, #1 INHALER 08/15/16 Baclofen* (Baclofen*) 10 Mg Tablet, 10 MG PO BID, TAB 08/15/16 Gabapentin* (Gabapentin*) 300 Mg Capsule, 600 MG PO TID, #60 CAP 08/15/16 Cholecalciferol (Vitamin D3) (VITAMIN D-3) 2,000 Unit Capsule, 2000 UNIT PO DAILY, CAP 08/15/16 Labetalol Hcl* (Labetalol Hcl*) 200 Mg Tablet, 200 MG PO DAILY, TAB 07/17/16 Tramadol HCl (Tramadol HCl) 50 Mg Tablet, 50 MG PO BID Y for PAIN, #120 TAB 07/17/16 Aspirin* (Aspirin* EC) 81 Mg Tablet.dr, 81 MG PO DAILY, TAB 07/17/16 Oxybutynin Chloride (Oxybutynin Chloride ER) 5 Mg Tab.er.24, 5 MG PO BID, TAB 07/17/16 Duloxetine Hcl* (Duloxetine Hcl*) 60 Mg Capsule.dr, 60 MG PO DAILY, #30 CAP 07/17/16 Lamotrigine* (Lamotrigine*) 100 Mg Tablet, 100 MG PO DAILY, TAB 07/17/16 Discontinued Reported Medications Clonidine Hcl* (Clonidine Hcl*) 0.1 Mg Tab, 0.1 MG PO DAILY, TAB 02/08/17 Lorazepam* (Lorazepam*) 1 Mg Tablet, 1 MG PO Q6 Y for ANXIETY, #60 TAB 02/08/17 Meloxicam* (Mobic*) 15 Mg Tablet, 15 MG PO DAILY, #30 TAB 08/15/16 Docusate Calcium* (Stool Softener*) 240 Mg Capsule, 250 MG PO DAILY, CAP 07/17/16 Valsartan (Valsartan) 160 Mg Tablet, 160 MG PO BID, #60 TAB 07/17/16 Pyridostigmine [place]* (Pyridostigmine [place]*) 60 Mg Tablet, 60 MG PO BID, TAB 07/17/16 Linaclotide (LINZESS) 290 Mcg Capsule, 290 MCG PO DAILY, #30 CAP 07/17/16 Zolpidem Tartrate* (Zolpidem Tartrate*) 10 Mg Tablet, 10 MG PO QHS Y for INSOMNIA, #30 TAB 07/17/16 Omeprazole* (Omeprazole*) 20 Mg Capsule.dr, 20 MG PO BID, #60 CAP 07/17/16 Discontinued Scripts Ibuprofen* (Motrin*) 600 Mg Tab, 600 MG PO Q6, #15 TAB Prov:RANJITH ZARCO MD 02/05/17 Hydrocodone/Acetaminophen ([place] 5-325 Tablet) 1 Each Tablet, 1 TAB PO Q6H Y for PAIN, #7 TAB Prov:RANJITH ZARCO MD 02/05/17 Ciprofloxacin Hcl* (Ciprofloxacin Hcl*) 500 Mg Tablet, 500 MG PO BID for 3 Days , TAB Prov:ROSANNA BIRMINGHAM 09/17/16 Guaifenesin-Dextromethorphan* (Robitussin* DM) 100MG/10MG/5ML Syrup, 10 ML PO Q8H Y for COUGH, #100 ML Prov:CARLYN WOODSON MD 08/17/16 Hydralazine Hcl* (Hydralazine Hcl*) 10 Mg Tablet, 10 MG PO Q8, #90 TAB Prov:CARLYN WOODSON MD 08/17/16 Nitroglycerin* (Nitrostat*) 0.4 Mg Tab.subl, 1 TAB SL Q5M Y for ANGINA, #30 Prov:CARLYN WOODSON MD 08/17/16 Follow-up Plan Dr. Quintero in one week Primary Care Provider Not On Staff Doctor Pending Labs Laboratory Tests Test 02/12/17 16:36 02/12/17 17:25 02/12/17 22:10 02/13/17 05:23 Bedside Glucose 163mg/dL (70-220) 157mg/dL (70-220) 128mg/dL (70-220) White Blood Count 4.910^3/ul (4.8-10.8) Red Blood Count 3.8310^6/ul (4.20-5.40) Hemoglobin 9.0g/dl (12.0-16.0) Hematocrit 29.8% (37.0-47.0) Mean Corpuscular Volume 77.8fl (82.0-101.0) Mean Corpuscular Hemoglobin 23.5pg (29.0-33.0) Mean Corpuscular Hemoglobin Concent 30.2g/dl (32.0-37.0) Red Cell Distribution Width 18.7% (11.5-14.5) Platelet Count 30102^3/UL (140-415) Mean Platelet Volume 10.2fl (7.4-10.4) Neutrophils % 48.9% (39.0-77.0) Lymphocytes % 37.7% (15.0-51.0) Monocytes % 8.9% (0.0-11.0) Eosinophils % 3.5% (0.0-7.0) Basophils % 0.4% (0.0-2.0) Nucleated Red Blood Cells % 0.0/100WBC (0.0-0.0) Neutrophils # 2.410^3/ul (1.6-7.5) Lymphocytes # 1.810^3/ul (0.8-2.9) Monocytes # 0.410^3/ul (0.3-0.9) Eosinophils # 0.210^3/ul (0.0-0.5) Basophils # 0.010^3/ul (0.0-0.1) Nucleated Red Blood Cells # 0.010^3/ul (0.0-0.0) Iron Level 43ug/dl (35-150) Total Iron Binding Capacity 398ug/dl (241-421) Percent Iron Saturation 11% SAT (22-52) Ferritin 23.0ng/ml (11.1-264.0) Test 02/13/17 08:19 02/13/17 12:18 Bedside Glucose 144mg/dL (70-220) 135mg/dL (70-220) SPEEDY MURRELL MD Feb 13, 2017 15:12
[2017-02-13 15:16] VITALS: BP 150/72; RESP 17
== END 2017-02-13 18:15 | disposition home or self-care (01) | DRG 563 ==
LOC: E/R 14:32 → INTOOBSV 18:05 → PP2 18:05 → OBSVTOIN 02-10 15:13
PROVIDERS: ADMIT Internal Medicine; ATTEND Internal Medicine
PROC: 0PSJXZZ Reposition Left Radius, External Approach (ICD-10-PCS; principal; 2017-02-10 17:00)
DX: S52.562A Barton's fracture of left radius, initial encounter for closed fracture (principal); G70.00 Myasthenia gravis without (acute) exacerbation; E11.9 Type 2 diabetes mellitus without complications; E87.6 Hypokalemia; D64.9 Anemia, unspecified; I10 Essential (primary) hypertension; F17.200 Nicotine dependence, unspecified, uncomplicated; Z79.4 Long term (current) use of insulin; Z95.1 Presence of aortocoronary bypass graft; Z95.0 Presence of cardiac pacemaker; W01.0XXA Fall on same level from slipping, tripping and stumbling without subsequent striking against object, initial encounter; R07.9 Chest pain, unspecified
CPT/HCPCS: 71010; 73100; 78452; 80048; 80053; 82728; 82962; 83540; 84132; 84439; 84443; 84484; 85025; 85045; 85610; 85730; 87081; 92610; 93005; 93017; 93306; 99217; G0378; A9500; A9505; J0360; J1170; J1815; J2270; J2405; J3010; J3480; J7030

== ENCOUNTER 2017-03-05 14:25 | Emergency (ER) | payer OTHER ==
[~2017-03-05] VITALS: Ht 167.6 cm; Wt 60.0 kg
[~2017-03-05 14:25] MED LIST changes: +ATOR20TA38 PO; -CIPR500T4 PO; +CLON1PAT3 TD; +DILT30TA30 PO; -DOCU240C55 PO; +DOCU250C58 PO; -HYDR-3670 PO; -HYDR-906 PO; -IBUP-1542 PO; +INSU100I27 SQ; +LINA145C PO; -LINA290C PO; -MELO-210 PO; +MEMA10TA16 PO; +METF500T4 PO; -NIT4 SL; +NOVO3I SC; -OMEP20CA16 PO; +OXYC-431 PO; +TRAZ50TA18 PO; -UDROBDM PO; +VALS160T20 PO; -VALS160T26 PO; -ZOLP10TA5 PO
[2017-03-05] MEDS ORDERED: LABETALOL HCL 20MG INJ IV PRN ×2 (14:30→15:30)
[2017-03-05 14:43] VITALS: Ht 167.6 cm; Wt 60.0 kg
--- NOTE | 2017-03-05 15:28 | RADRPT ---
PROCEDURE: XR Chest. CLINICAL INDICATION: Shortness of breath. Cerebrovascular accident. TECHNIQUE: Single frontal view. COMPARISON: 02/08/2017. FINDINGS: There is mild scarring at the lung bases. The lungs are otherwise clear. The heart is mildly enlarged. There is calcification in the aorta consistent with atherosclerosis. T here are sternal wires. There is a left-sided dual lead permanent pacemaker. There is no pleural effusion. There is no pneumothorax. IMPRESSION: 1. Mild scarring at the lung bases. 2. Cardiomegaly and atherosclerosis. 3. Previous median sternotomy. 4. Permanent pacemaker. 5. Otherwise unremarkable chest radiograph. RPTAT: QQ .José Manuel Whittington MD, MD Date Time Electronically viewed and signed by .José Manuel Whittington MD, MD on 03/05/2017 15:28 .R/
--- NOTE | 2017-03-05 15:43 | RADRPT ---
PROCEDURE: CT Brain without contrast. CLINICAL INDICATION: Altered mental status. TECHNIQUE: A CT of the brain was performed on multidetector high-resolution CT scanner utilizing a xial sections from the skull base through the vertex without contrast. The scan was reviewed in sof t tissue brain and high frequency resolution bone algorithm windows. Images were reviewed on a high -resolution PACS workstation. One or more the following does reduction techniques were utilized: Aut omated exposure control, adjustment of the mA/ or kV according to patient's size, or use of iterativ e reconstruction technique. The exam CTDI = 43.30 mGy and the DLP = 720.23 mGy-cm. DICOM images are available. COMPARISON: 08/15/2016. FINDINGS: The ventricles and sulci are mildly to moderately prominent indicative of volume loss. There is mild to moderate cerebellar volume loss. There is no intracranial hemorrhage, mass effect or midline sh ift. No abnormal intra-axial or extra-axial fluid collections are seen. Similar encephalomalacia i s again noted in the inferior right frontal lobe which likely represent sequela of prior trauma. The velazquez/white matter differentiation is otherwise preserved. There are mild scattered foci of hypoattenuation in the white matter, which are nonspecific in etiol ogy but likely reflect chronic small vessel ischemic changes. There are mild intracranial vascular calcifications consistent with atherosclerosis. The visualized paranasal sinuses are essentially simone ar. Parietal scalp swelling is noted without underlying skull fracture. IMPRESSION: 1. No acute intracranial hemorrhage, transcortical infarction or mass effect. 2. Mild intracranial atherosclerosis and chronic small vessel ischemic changes. 3. Similar encephalomalacia in the inferior right frontal lobe which likely represent sequela of p rior trauma. 4. Mild to moderate generalized cerebral and cerebellar volume loss. 5. Parietal scalp swelling is noted without underlying skull fracture. RPTAT: HH .Rayna Shabazz MD, MD Date Time Electronically viewed and signed by .Rayna Shabazz MD, MD on 03/05/2017 15:43 .N/
[2017-03-05 16:18] LABS: BASOPHILS % 0.4 % (0.0-2.0); EOSINOPHILS # 0.1 10^3/ul (0.0-0.5); EOSINOPHILS % 2.1 % (0.0-7.0); HEMATOCRIT 32.9 % (37.0-47.0); HEMOGLOBIN 10.2 g/dl (12.0-16.0); LYMPHOCYTES % 38.8 % (15.0-51.0); MEAN CORPUSCULAR HEMOGLOBIN 24.1 pg (29.0-33.0); MEAN CORPUSCULAR VOLUME 77.8 fl (82.0-101.0); MONOCYTE # 0.4 10^3/ul (0.3-0.9); MONOCYTES % 7.9 % (0.0-11.0); NEUTROPHIL # 2.6 10^3/ul (1.6-7.5); NEUTROPHILS % 50.6 % (39.0-77.0); PLATELET COUNT 194 10^3/UL (140-415); RED BLOOD COUNT 4.23 10^6/ul (4.20-5.40); RED CELL DISTRIBUTION WIDTH 18.1 % (11.5-14.5); WHITE BLOOD COUNT 5.2 10^3/ul (4.8-10.8)
[2017-03-05 16:30] LABS: INR 1.01; PROTIME 13.3 Sec (12.2-14.2)
[2017-03-05 16:31] LABS: PARTIAL THROMBOPLASTIN TIME 28.6 Sec (25.0-35.0)
[2017-03-05 16:33] LABS: ANION GAP 13 (8-16); BLOOD UREA NITROGEN 13 mg/dl (7-20); CALCIUM 9.6 mg/dl (8.4-10.2); CARBON DIOXIDE 28 mmol/L (21-31); CHLORIDE 107 mmol/L (97-110); CREATININE 0.71 mg/dl (0.44-1.00); GLUCOSE 114 mg/dl (70-220); POTASSIUM 3.6 mmol/L (3.5-5.1); SODIUM 144 mmol/L (135-144)
[2017-03-05 16:45] LABS: TROPONIN-I < 0.012 ng/ml (0.00-0.12)
--- NOTE | 2017-03-05 17:08 | ERD ---
ER Documentation Chief Complaint Chief Complaint generalized weakness HPI Patient is a 66-year-old female with hypertension and chronic pain who presents with weakness. The patient was brought in by ambulance. The patient is complaining of diffuse weakness for the past 2-3 weeks. She had chest pain this morning which is gone now. She was given nitro at the nursing facility she lives at. She is well-known to medics for chronic pain visits. Upon review of old medical records this is the patient's sixth visit to the ER since 2007. She does not remember the name of her primary doctor. ROS All systems reviewed and are negative except as per history of present illness. Medications Home Meds Active Scripts Oxycodone HCl/Acetaminophen (Oxycodone-Acetaminophen 10-325) 1 Each Tablet, 1 TAB PO Q4H Y for PAIN for 30 Days, TAB Prov:SPEEDY MURRELL MD 02/13/17 Reported Medications Atorvastatin Calcium* (Atorvastatin Calcium*) 20 Mg Tablet, 20 MG PO QHS, #30 TAB 02/08/17 Insulin Detemir (Levemir Flextouch) 100 Unit/1 Ml Insuln.pen, 24 UNIT SQ QPM 02/08/17 Diltiazem Hcl* (Cardizem*) 30 Mg Tablet, 30 MG PO DAILY, #60 TAB 02/08/17 Valsartan* (Diovan*) 160 Mg Tablet, 160 MG PO BID, TAB HOLD IF BP<100 02/08/17 Clonidine Patch (CLONIDINE PATCH) 0.3 Mg/24 Hr Patch, 1 PATCH.WK TD Q7D, #4 PATCH.WK 02/08/17 Linaclotide (LINZESS) 145 Mcg Capsule, 145 MCG PO DAILY, #30 CAP 02/08/17 Memantine* (Namenda*) 10 Mg Tablet, 10 MG PO DAILY, #30 TAB 02/08/17 Insulin Aspart* (Novolog Insulin Pen*) 100 Unit/Ml Soln, 0 SC .SLIDING SCALE AC , EA TAKE DIRECTED PER SLIDING SCALE 02/08/17 Trazodone Hcl* (Trazodone Hcl*) 50 Mg Tablet, 50 MG PO QHS, #30 TAB 02/08/17 Pyridostigmine [facility]* (Pyridostigm[facility]*) 60 Mg Tablet, 60 MG PO BID, TAB 02/08/17 Docusate Sodium* (Colace*) 250 Mg Capsule, 250 MG PO DAILY, #30 CAP 02/08/17 Metformin Hcl* (Metformin Hcl*) 500 Mg Tablet, 500 MG PO WITH BREAKFAST DINNE, # 60 TAB 02/08/17 Albuterol Sulfate* (Proair HFA*) 8.5 Gm Hfa.aer.ad, 2 PUFF INH Q4H Y for WHEEZING AND SOB, #1 INHALER 08/15/16 Baclofen* (Baclofen*) 10 Mg Tablet, 10 MG PO BID, TAB 08/15/16 Gabapentin* (Gabapentin*) 300 Mg Capsule, 600 MG PO TID, #60 CAP 08/15/16 Cholecalciferol (Vitamin D3) (VITAMIN D-3) 2,000 Unit Capsule, 2000 UNIT PO DAILY, CAP 08/15/16 Labetalol Hcl* (Labetalol Hcl*) 200 Mg Tablet, 200 MG PO DAILY, TAB 07/17/16 Tramadol HCl (Tramadol HCl) 50 Mg Tablet, 50 MG PO BID Y for PAIN, #120 TAB 07/17/16 Aspirin* (Aspirin* EC) 81 Mg Tablet.dr, 81 MG PO DAILY, TAB 07/17/16 Oxybutynin Chloride (Oxybutynin Chloride ER) 5 Mg Tab.er.24, 5 MG PO BID, TAB 07/17/16 Duloxetine Hcl* (Duloxetine Hcl*) 60 Mg Capsule.dr, 60 MG PO DAILY, #30 CAP 07/17/16 Lamotrigine* (Lamotrigine*) 100 Mg Tablet, 100 MG PO DAILY, TAB 07/17/16 Allergies Allergies: Coded Allergies: No Known Allergy (Unverified , 03/05/17) PMhx/Soc History of Surgery: Yes Anesthesia Reaction: No Hx Neurological Disorder: No Hx Respiratory Disorders: No Hx Cardiac Disorders: Yes (HTN, CAD, CABG, PACEMAKER) Hx Psychiatric Problems: No Hx Miscellaneous Medical Probl: No Hx Alcohol Use: No Hx Substance Use: Yes Hx Tobacco Use: Yes (2pack/day) FmHx Family History: No diabetes Physical Exam Vitals Vital Signs Date Time Temp Pulse Resp B/P Pulse Ox O2 Delivery O2 Flow Rate FiO2 03/05/17 18:21 97.6 66 18 243/118 96 Room Air 03/05/17 14:43 98.0 74 18 240/107 98 Physical Exam Const: No acute distress Head: Atraumatic Eyes: Normal Conjunctiva ENT: Normal External Ears, Nose and Mouth. Neck: Full range of motion..~ No meningismus. Resp: Clear to auscultation bilaterally Cardio: Regular rate and rhythm, no murmurs Abd: Soft, non tender, non distended. Normal bowel sounds Skin: No petechiae or rashes Back: No midline or flank tenderness Ext: No cyanosis, or edema Neur: Awake and alert, cranial nerves II through XII are intact, strength is 5 out of 5 in all 4 extremities, no slurred speech Psych: Normal Mood and Affect Result Diagram: 03/05/17 1555 03/05/17 1555 Results 24 hrs Laboratory Tests Test 03/05/17 15:55 White Blood Count 5.210^3/ul Red Blood Count 4.2310^6/ul Hemoglobin 10.2g/dl Hematocrit 32.9% Mean Corpuscular Volume 77.8fl Mean Corpuscular Hemoglobin 24.1pg Mean Corpuscular Hemoglobin Concent 31.0g/dl Red Cell Distribution Width 18.1% Platelet Count 81158^3/UL Mean Platelet Volume 11.0fl Neutrophils % 50.6% Lymphocytes % 38.8% Monocytes % 7.9% Eosinophils % 2.1% Basophils % 0.4% Nucleated Red Blood Cells % 0.0/100WBC Neutrophils # 2.610^3/ul Lymphocytes # 2.010^3/ul Monocytes # 0.410^3/ul Eosinophils # 0.110^3/ul Basophils # 0.010^3/ul Nucleated Red Blood Cells # 0.010^3/ul Prothrombin Time 13.3Sec Prothrombin Time Ratio 1.0 INR International Normalized Ratio 1.01 Activated Partial Thromboplast Time 28.6Sec Sodium Level 144mmol/L Potassium Level 3.6mmol/L Chloride Level 107mmol/L Carbon Dioxide Level 28mmol/L Anion Gap 13 Blood Urea Nitrogen 13mg/dl Creatinine 0.71mg/dl Glucose Level 114mg/dl Hemoglobin A1c 5.5% Calcium Level 9.6mg/dl Troponin I < 0.012ng/ml Current Medications Medications (Trade) Dose Ordered Sig/Gelacio Route PRN Reason Start Time Stop Time Status Last Admin Dose Admin Labetalol HCl (Labetalol) 20 mg Q20M PRN IV ELEVATED BLOOD PRESSURE 03/05/17 14:30 03/05/17 15:17 DC Labetalol HCl (Labetalol) 20 mg Q20M PRN IV ELEVATED BLOOD PRESSURE 03/05/17 15:30 03/05/17 17:53 Procedures/MDM EKG read by me: Rate/Rhythm: Regular rate and rhythm at a rate of 61 Intervals: Normal Impression: No evidence of ischemia or arrhythmia CT brain shows no intracranial hemorrhage or mass per radiology. Chest x-ray shows no pneumonia or pneumothorax per radiology. Patient is a 66-year-old female presents with acute hypertension and diffuse weakness. At this point I doubt stroke. I doubt acute coronary syndrome. I doubt serious electrolyte abnormality. I doubt sepsis. The patient was given labetalol to lower her blood pressure. I do not believe she requires further workup or admission to the hospital at this time. I told the patient I would discharge her and she said "can I get a pain shot". I do not believe the patient requires admission at this time but I do feel that close follow-up with her primary doctor within 24-48 hours would be appropriate. The patient has anemia but does not require transfusion at this time. Critical Care: Time: 35 minutes excluding all billable procedures. Treatments/Evaluations: Close monitoring and treatment of unstable vital signs, cardiorespiratory, and neurologic status, while maintaining tight balance of fluid, respiratory, and cardiac interventions. Departure Diagnosis: Primary Impression: Hypertension Hypertension type: essential hypertension Qualified Code: I10 - Essential hypertension Additional Impressions: Acute weakness Anemia Anemia type: unspecified type Qualified Code: D64.9 - Anemia, unspecified type Condition: Fair Patient Instructions: High Blood Pressure (Hypertension), Weakness, Unk Cause Referrals: Your doctor Additional Instructions: Call your primary care doctor TOMORROW for an appointment during the next 1-2 days.See the doctor sooner or return here if your condition worsens before your appointment time. NICHOLAS CONNER MD Mar 05, 2017 17:08
[2017-03-05 18:30] VITALS: TEMP 98
[2017-03-05] MEDS ORDERED: ACETAMINOPHEN 325 MG TAB PO ONE (19:00)
[2017-03-05] MEDS ORDERED: NICARDipine HCL 30 MG CAPSULE PO ONE (19:00)
[2017-03-05 21:26] VITALS: BP 130/85; PULSE 60; RESP 16
== END 2017-03-05 21:34 | disposition home or self-care (01) ==
LOC: E/R 14:25
DX: R53.1 Weakness (principal); I10 Essential (primary) hypertension; D64.9 Anemia, unspecified; I25.10 Atherosclerotic heart disease of native coronary artery without angina pectoris; F17.210 Nicotine dependence, cigarettes, uncomplicated; E11.9 Type 2 diabetes mellitus without complications; R51 Headache; R07.9 Chest pain, unspecified; Z79.4 Long term (current) use of insulin; Z79.84 Long term (current) use of oral hypoglycemic drugs; Z79.82 Long term (current) use of aspirin; Z95.1 Presence of aortocoronary bypass graft; Z95.0 Presence of cardiac pacemaker
CPT/HCPCS: 36415; 70450; 71010; 80048; 83036; 84484; 85025; 85610; 85730; 93005; 96374